=== PATIENT | male | born 1990 | race African-American/Black ===

== ENCOUNTER 2023-03-10 | Outpatient (REF) | payer OTHER, SELFPAY | END 2023-03-10 00:01 | disposition home or self-care (01) | LOC: CF | PROVIDERS: Visit Provider Nurse Practitioner Family | DX: J45.909 Unspecified asthma, uncomplicated (principal); Z91.09 Other allergy status, other than to drugs and biological substances | CPT/HCPCS: 99212 ==

== ENCOUNTER 2023-03-10 09:47 | Outpatient (AMB) | payer OTHER, SELFPAY ==
--- NOTE | 2023-03-10 09:51 | A.OFFVIS_ITS ---
Intake Vital Signs 3 03/10/23 09:52 Height 5 ft 9 in Weight 274 lb BMI 40.5 BP 124/68 Blood Pressure Location Rt brachial Position Sitting Pulse 96 Pulse Source Pulse Oximeter Pulse Oximetry (%) 98 Oxygen Delivery Method Room Air Intake Visit Reasons: Asthma Peanut Vendor Required: No Human Resources Team Member: Human Resources Team Member offered & declined Accompanied by: Self / Same As Patient Allergies Seasonal Allergies Allergy (Intermediate, Verified 03/10/23 10:01) Cough Medication List - Last Reconciled 03/10/23 by Mary Hernandez LPN albuterol sulfate 90 mcg/actuation 2 puffs inhalation Q4-6H PRN emtricitabine-tenofovir (TDF) 200-300 mg 1 tab PO DAILY epinephrine 0.3 mg IM Q4H PRN fluticasone propionate 220 mcg/actuation (Flovent HFA) 1 puff inhalation BID fluticasone propionate 50 mcg/actuation 2 sprays intranasal DAILY ketoconazole 2% 1 appl topical .QOD PRN lamotrigine (Lamictal) 100 mg PO DAILY quetiapine 50 mg PO BEDTIME quetiapine 50 mg PO BEDTIME HPI Asthma 2 HPI0 Details Bon is a very pleasant 32 year old male, never tobacco smoker, with underlying asthma since childhood. He was referred by PCP for pulmonary evaluation. He reports intermittent dry cough, wheezing, chest tightness and difficulty taking a deep breath. He last had these symptoms approximately 3 weeks ago despite using Flovent and duoneb. He states his asthma is typically triggered by allergies and exercise. He is using xyzal and has been receiving allergen immunotherapy for the past 2-[address] Valderrama's office. He reports seasonal allergies to pollens, molds, cats and dust. He does have two cats at home. 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 His mother, smoker, with COPD, otherwise no pertinent family history. REPLACED BY [facility] Social History (Updated 03/10/23 @ 10:03 by Mary Hernandez LPN) Patient Tobacco Use Status: Never used Tobacco Review of Systems Const Denies chills, Denies excessive sweating, Denies fever(s), Denies headache(s) and Denies night sweats Eyes Denies dry eyes, Denies irritation and Denies itchy eyes ENT Reports Normal hearing present, Denies headache(s), Reports nasal congestion, Denies nasal discharge, Reports post nasal drip and Denies sore throat Card Denies chest pain, Denies chest pain at rest, Denies chest pain with activity, Denies claudication, Denies leg edema, Denies orthopnea and Denies paroxysmal nocturnal dyspnea Resp Denies chest congestion, Denies excessive phlegm production, Denies pain on inspiration, Denies pain with cough and Denies stridor Musc Denies myalgias Neuro Reports Normal hearing present and Denies headache(s) Endo Denies excessive sweating Jeanmarie/Lymph Denies lymphadenopathy Aller/Immun Denies itchy eyes and Denies seasonal rhinorrhea Physical Exam Vital Signs: Last Vital Signs Pulse 96 03/10/23 09:52 BP 124/68 03/10/23 09:52 Pulse Ox 98 03/10/23 09:52 Oxygen Delivery Method Room Air 03/10/23 09:52 BMI result Body Mass Index 40.5 Const General: cooperative, healthy appearing, comfortable, no acute distress, well developed and alert Nutritional Appearance: obese Orientation/consciousness: patient oriented x3 Limitations: no limitations HEENT Head: Yes normal to inspection, Yes normocephalic and Yes atraumatic Ears: hearing grossly normal bilaterally and external ears normal Eyes General: appearance normal, both eyes and all related structures Eyelids: Yes eyelids normal Sclerae: sclerae normal EOM: EOMs intact bilaterally Neck Neck: Yes normal visual inspection and Yes no lymphadenopathy Lymphatic: no lymphadenopathy noted Chest Chest palpation & inspection: normal inspection of the chest Resp Effort & Inspection: normal respiratory effort, able to speak in complete sentences, no audible wheezes, no cough, no stridor, not tachypneic, no tripod positioning and no use of accessory muscles Auscultation: clear to auscultation bilaterally Cardio Jugular venous distension: no JVD Rate: regular rate Rhythm: regular rhythm Skin Other: warm, dry General skin exam: no rashes or lesions noted Neuro General: patient oriented x3 Cranial nerves: Yes Normal hearing present Cognition (Neuro): normal cognition Gait exam (Neuro): Normal gait present Extrem General: Yes normal to inspection, Yes no clubbing, cyanosis or edema and Yes no pedal edema Psych Appearance: grossly normal and well kempt Speech and movement: Normal speech and movement present and Clear speech present Affect: normal affect Attitude: cooperative Thought process: Normal thought process present Thought content: Normal thought content present Insight: Good insight present (Psych) Judgement: Good judgement present (Psych) Results Reviewed Results Reviewed: Assessment & Plan Assessment & Plan (1) Asthma: Code(s): J45.909 - Unspecified asthma, uncomplicated (2) Environmental allergies: Code(s): Z91.09 - Other allergy status, other than to drugs and biological substances Plan Bon's symptoms are likely related to underlying asthma and perennial allergies. Discussed triggers and modifications, including air purifier, dehumidifier and dust mite covers for pillows/mattress. Reviewed PFT from 2020 which was unremarkable. Full report above. Discussed methacholine challenge but patient would like to hold off at this time. Will trial Breo in place of Flovent. Patient is aware to call the office if there are insurance coverage issues. All questions were answered and aptient is in agreement of plan. Will follow up in three months to assess response to Breo. Medications: New 2 fluticasone furoate-vilanterol 200-25 mcg/dose (Breo Ellipta) 1 inh inhalation DAILY 60 ea 3RF albuterol sulfate 90 mcg/actuation 2 puffs inhalation Q4-6H PRN 1 ea 3RF shortness of breath or wheezing Coding Level of Care Code New Pt Level 4 (50338) Diagnoses Asthma J45.909 Environmental allergies Z91.09
[2023-03-10 09:52] VITALS: BP 124/68; PULSE 96; O2SAT 98; BMI 40.5
== END 2023-03-10 10:28 | disposition home or self-care (01) ==
LOC: HO.HPSW 09:47
PROVIDERS: PCP Family Medicine; Referring Provider Family Medicine; Visit Provider Nurse Practitioner Family
DX: J45.909 Unspecified asthma, uncomplicated (principal); Z91.09 Other allergy status, other than to drugs and biological substances
CPT/HCPCS: 99204

== ENCOUNTER 2023-06-02 13:45 | Outpatient (AMB) | payer OTHER, SELFPAY ==
--- NOTE | 2023-06-02 13:45 | A.OFFVIS_ITS ---
Intake Vital Signs 06/02/23 13:47 Height 5 ft 9 in Weight 266 lb BMI 39.3 BP 136/72 Blood Pressure Location Rt brachial Position Sitting Pulse 97 Pulse Source Pulse Oximeter Pulse Oximetry (%) 97 Oxygen Delivery Method Room Air Intake Visit Reasons: 3 month follow up Allergies Seasonal Allergies Allergy (Intermediate, Verified 06/02/23 13:51) Cough Medication List - Last Reconciled 06/02/23 by Mary Hernandez LPN albuterol sulfate 90 mcg/actuation 2 puffs inhalation Q4-6H PRN emtricitabine-tenofovir (TDF) 200-300 mg 1 tab PO DAILY epinephrine 0.3 mg IM Q4H PRN fluticasone furoate-vilanterol 200-25 mcg/dose (Breo Ellipta) 1 inh inhalation DAILY fluticasone propionate 50 mcg/actuation 2 sprays intranasal DAILY ketoconazole 2% 1 appl topical .QOD PRN lamotrigine (Lamictal) 100 mg PO DAILY quetiapine 50 mg PO BEDTIME PFSH Social History (Updated 06/02/23 @ 13:53 by Mary Hernandez LPN) Patient Tobacco Use Status: Never used Tobacco Smoked in Last 30 Days: No Physical Exam Vital Signs: Last Vital Signs Pulse 97 06/02/23 13:47 BP 136/72 06/02/23 13:47 Pulse Ox 97 06/02/23 13:47 Oxygen Delivery Method Room Air 06/02/23 13:47 BMI result Body Mass Index 39.3 Assessment & Plan Assessment & Plan Orders: Orders XR chest 2V Today R07.81 - Pleurodynia Coding
[2023-06-02 13:47] VITALS: BP 136/72; PULSE 97; O2SAT 97; BMI 39.3
--- NOTE | 2023-06-02 13:47 | A.OFFVIS_ITS ---
Intake Vital Signs 06/02/23 13:47 Height 5 ft 9 in Weight 266 lb BMI 39.3 BP 136/72 Blood Pressure Location Rt brachial Position Sitting Pulse 97 Pulse Source Pulse Oximeter Pulse Oximetry (%) 97 Oxygen Delivery Method Room Air Intake Visit Reasons: 3 month follow up Product Mgr Required: No Foundation Relations Manager: Foundation Relations Manager offered & declined Accompanied by: Self / Same As Patient Allergies Seasonal Allergies Allergy (Intermediate, Verified 06/02/23 13:51) Cough Medication List - Last Reconciled 06/02/23 by Mary Hernandez LPN albuterol sulfate 90 mcg/actuation 2 puffs inhalation Q4-6H PRN emtricitabine-tenofovir (TDF) 200-300 mg 1 tab PO DAILY epinephrine 0.3 mg IM Q4H PRN fluticasone furoate-vilanterol 200-25 mcg/dose (Breo Ellipta) 1 inh inhalation DAILY fluticasone propionate 50 mcg/actuation 2 sprays intranasal DAILY ketoconazole 2% 1 appl topical .QOD PRN lamotrigine (Lamictal) 100 mg PO DAILY quetiapine 50 mg PO BEDTIME HPI 3 month follow up HPI Details Bon is a very pleasant 33 year old male, never tobacco smoker, with underlying asthma since childhood. At the last visit Flovent was switched to Breo. He reports significant improvements in cough and dyspnea. However, he continues to report inability to inspire fully when exercising with associated pleuritic discomfort. He does report these symptoms were present when he was 180lbs and continues with his current weight. He denies any recent imaging. [facility] Social History (Updated 06/02/23 @ 13:53 by Mary Hernandez LPN) Patient Tobacco Use Status: Never used Tobacco Smoked in Last 30 Days: No Review of Systems Const Denies chills, Denies excessive sweating, Denies fever(s), Denies headache(s) and Denies night sweats Eyes Denies dry eyes, Denies irritation and Denies itchy eyes ENT Reports Normal hearing present, Denies headache(s), Reports nasal congestion, Denies nasal discharge and Denies sore throat Card Denies chest pain, Denies chest pain at rest, Denies chest pain with activity, Denies claudication, Denies leg edema, Denies orthopnea and Denies paroxysmal nocturnal dyspnea Resp Denies chest congestion, Denies excessive phlegm production, Denies pain with cough and Denies stridor Musc Denies myalgias Neuro Reports Normal hearing present and Denies headache(s) Endo Denies excessive sweating Jeanmarie/Lymph Denies lymphadenopathy Aller/Immun Denies itchy eyes and Denies seasonal rhinorrhea Physical Exam Vital Signs: Last Vital Signs Pulse 97 06/02/23 13:47 BP 136/72 06/02/23 13:47 Pulse Ox 97 06/02/23 13:47 Oxygen Delivery Method Room Air 06/02/23 13:47 BMI result Body Mass Index 39.3 Const General: cooperative, healthy appearing, comfortable, no acute distress, well developed and alert Nutritional Appearance: obese Orientation/consciousness: patient oriented x3 Limitations: no limitations HEENT Head: Yes normal to inspection, Yes normocephalic and Yes atraumatic Ears: hearing grossly normal bilaterally and external ears normal Eyes General: appearance normal, both eyes and all related structures Eyelids: Yes eyelids normal Sclerae: sclerae normal EOM: EOMs intact bilaterally Neck Neck: Yes normal visual inspection and Yes no lymphadenopathy Lymphatic: no lymphadenopathy noted Chest Chest palpation & inspection: normal inspection of the chest Resp Effort & Inspection: normal respiratory effort, able to speak in complete sentences, no audible wheezes, no cough, no stridor, not tachypneic, no tripod positioning and no use of accessory muscles Auscultation: clear to auscultation bilaterally Cardio Jugular venous distension: no JVD Rate: regular rate Rhythm: regular rhythm Skin Other: warm, dry General skin exam: no rashes or lesions noted Neuro General: patient oriented x3 Cranial nerves: Yes Normal hearing present Cognition (Neuro): normal cognition Gait exam (Neuro): Normal gait present Extrem General: Yes normal to inspection, Yes no clubbing, cyanosis or edema and Yes no pedal edema Psych Appearance: grossly normal and well kempt Speech and movement: Normal speech and movement present and Clear speech present Affect: normal affect Attitude: cooperative Thought process: Normal thought process present Thought content: Normal thought content present Insight: Good insight present (Psych) Judgement: Good judgement present (Psych) Assessment & Plan Assessment & Plan (1) Asthma: Code(s): J45.909 - Unspecified asthma, uncomplicated (2) Environmental allergies: Code(s): Z91.09 - Other allergy status, other than to drugs and biological substances (3) Pleuritic pain: Code(s): R07.81 - Pleurodynia Plan Bon reports improvements on Breo with cough and dyspnea, however continues to report pleuritic discomfort when exercising. Discussed using albuterol prior to exercise and will send for CXR to assess for other etiologies contributing to pleuritic discomfort. Will send for CXR. All questions were answered and patient is in agreement of plan. Will call patient to discuss CXR results and follow up in 6 months or sooner if needed. Orders: Orders XR chest 2V Today R07.81 - Pleurodynia Coding Level of Care Code Est Pt Level 3 (92278) Diagnoses Asthma J45.909 Environmental allergies Z91.09 Pleuritic pain R07.81
== END 2023-06-02 14:10 | disposition home or self-care (01) ==
PROVIDERS: PCP Family Medicine; Visit Provider Nurse Practitioner Family
DX: J45.909 Unspecified asthma, uncomplicated (principal); Z91.09 Other allergy status, other than to drugs and biological substances; R07.81 Pleurodynia
CPT/HCPCS: 99213

== ENCOUNTER → 2023-06-02 13:45 | Outpatient (BNVA) | payer OTHER, SELFPAY | PROVIDERS: PCP Family Medicine; Visit Provider Nurse Practitioner Family ==

== ENCOUNTER → 2023-09-22 14:49 | Outpatient (AMB) | payer OTHER, SELFPAY ==
--- NOTE | 2023-09-22 14:34 | A.OFFVIS_ITS ---
Intake Intake Visit Reasons: Asthma Allergies Seasonal Allergies Allergy (Intermediate, Verified 06/02/23 13:51) Cough HPI Asthma HPI Details Bon is a very pleasant 33 year old male, never tobacco smoker, with underlying asthma since childhood. Today's visit was conducted via telephone. At baseline he has been using Breo with moderate effect. He continues to report inability to inspire fully when exercising and develops associated pleuritic discomfort. He denies cough or wheezing. He uses albuterol prior to exercise however discomfort is still present with exertion. We previously discussed trialing prednisone to see if this diminishes chest discomfort and he noted a 60% improvement after a 5 day course. He also reports seasonal allergies as well as cat allergy, with two cats at home. [facility] Social History (Updated 06/02/23 @ 13:53 by Mary Hernandez LPN) Patient Tobacco Use Status: Never used Tobacco Review of Systems Const All systems reviewed & are unremarkable except as noted in HPI and below Physical Exam Const General: cooperative and no acute distress Orientation/consciousness: patient oriented x3 Resp Effort & Inspection: normal respiratory effort, able to speak in complete sentences and no audible wheezes Neuro General: patient oriented x3 Psych Mental Status: mental status grossly normal Speech and movement: Clear speech present Attitude: cooperative Thought process: Normal thought process present Thought content: Normal thought content present Insight: Good insight present (Psych) Judgement: Good judgement present (Psych) Assessment & Plan Assessment & Plan (1) Asthma: Code(s): J45.909 - Unspecified asthma, uncomplicated (2) Environmental allergies: Code(s): Z91.09 - Other allergy status, other than to drugs and biological substances (3) Pleuritic pain: Code(s): R07.81 - Pleurodynia Plan Advised to continue Breo and will add singulair. If no significant improvement, will consider Trelegy. Bon continues to report pleuritic discomfort when exercising with minimal relief using albuterol. He did note moderate improvement in symptoms with prednisone use. CXR unremarkable. Will send for chest CT to assess for parenchymal lung conditions contributing to pleuritic discomfort. He has been previously worked up for cardiac contribution which was reportedly unremarkable. All questions were answered and patient is in agreement of plan. Will call to review results or sooner if needed. Orders: Orders CT chest wo IV con Today R07.81 - Pleurodynia Medications: New montelukast (Singulair) 10 mg PO BEDTIME 30 tabs 6RF Coding Level of Care Code Tele Est Pt Level 3 (35246) Diagnoses Asthma J45.909 Environmental allergies Z91.09 Pleuritic pain R07.81 Time Spent (min) 12
== END ==
PROVIDERS: PCP Family Medicine; Visit Provider Nurse Practitioner Family
DX: J45.909 Unspecified asthma, uncomplicated (principal); Z91.09 Other allergy status, other than to drugs and biological substances; R07.81 Pleurodynia
CPT/HCPCS: 99213

== ENCOUNTER → 2023-09-22 14:49 | Outpatient (BNVA) | payer OTHER, SELFPAY | PROVIDERS: PCP Family Medicine; Visit Provider Nurse Practitioner Family ==

== ENCOUNTER 2023-12-15 13:26 | Outpatient (AMB) | payer OTHER, SELFPAY ==
--- NOTE | 2023-12-15 13:26 | MHC.OFFVIS ---
Vital Signs 12/15/23 13:33 Height 5 ft 9 in Weight 288 lb BMI 42.5 BP 154/92 H Blood Pressure Location Lt brachial Position Sitting Pulse 94 Pulse Source Pulse Oximeter Pulse Oximetry (%) 100 Oxygen Delivery Method Room Air Intake Visit Reasons: Thoracic back pain Intake Note: Pain today 8/10 Red Mud Thickener Operator Required: No Accompanied by: Self / Same As Patient Allergies Seasonal Allergies Allergy (Intermediate, Verified 12/15/23 13:36) Cough amoxicillin Allergy (Unknown, Verified 12/15/23 13:36) Rash HPI Comments Details: Bon is a very pleasant 33-year-old male who presents to the office today for evaluation and management of his chronic neck pain. Patient has been suffering with this pain for a long time, has progressively gotten worse over the last 3 months Rated today as 8/10, constant throughout the day and night He has been taking Tylenol and Motrin with minimal improvement. Also tried methocarbamol and tizanidine which he currently takes. This provides some improvement. Has tried topical patches but states has difficulty with the adhesive and often the patches roll up or fall off Currently has been going to physical therapy for a couple of weeks, has noticed some improvement Gets massages once monthly that provides some relief Has been using a TENS unit, states this is what provides him with the most relief of his pain Denies previous attempts at chiropractor, acupuncture or injections In terms of muscle damage condition is described as aching, dull, stabbing, sharp, throbbing Pain is negatively impacting patient's enjoyment of life, general activity, mood, normal work, recreational activities, relationships with people, sleep, walking, ?everything? [facility] Social History (Updated 06/02/23 @ 13:53 by Mary Hernandez LPN) Patient Tobacco Use Status: Never used Tobacco Review of Systems Const All systems reviewed & are unremarkable except as noted in HPI and below Physical Exam Vital Signs: Last Vital Signs Pulse 94 12/15/23 13:33 BP 154/92 H 12/15/23 13:33 Pulse Ox 100 12/15/23 13:33 Oxygen Delivery Method Room Air 12/15/23 13:33 BMI result Body Mass Index 42.5 General: awake, alert, oriented. Answers questions appropriately. Fully engaged in examination. Skin: warm, dry, intact HEENT: Normocephalic. Hearing intact. Cardiac: External chest normal in appearance. Respiratory: No cough, audible wheezing or stridor. Abdomen: without gross distension. MS: No obvious swelling or deformities. Able to transition from sit to stand unassisted. Ambulates with bilaterally normal heel strike and toe off Tenderness to palpation midline thoracic vertebrae and thoracic paraspinal muscles Neurological: Oriented to person, place, time and situation. Thought process intact. No gait abnormalities appreciated. Psychiatric: Appropriate mood and affect. Good judgment and insight. Results Reviewed Results Reviewed: 11/16/23: X-ray cervical spine: Normal X-ray thoracic spine: No acute abnormality X-ray lumbar spine: Normal Assessment & Plan Assessment & Plan (1) Thoracic back pain: Code(s): M54.6 - Pain in thoracic spine Category: Medical Plan Bon is a very pleasant 33-year-old male who presented to the office today for evaluation management of his chronic thoracic back pain He has exhausted conservative therapy including greater than 6 months of nonsteroidal anti-inflammatory medications, topical medications, muscle relaxers, physical therapy, TENS unit and massage Trial Celebrex 100 mg p.o. twice daily. Take with food do not take with any other nonsteroidal anti-inflammatory medications. Continue with muscle relaxers as prescribed Will schedule patient for fluoroscopy guided T7, possibly T6, possibly T8 sprint PNS with local anesthetic All questions and concerns were answered, patient agrees with the plan. Follow up after sprint device placement, sooner if needed Medications: New celecoxib (Celebrex) Do not take with any other nonsteroidal anti-inflammatory medications 100 mg PO BID 60 caps 1RF Coding Level of Care Code New Pt Level 4 (87041) Diagnoses Thoracic back pain M54.6
[2023-12-15 13:33] VITALS: BP 154/92; PULSE 94; O2SAT 100; BMI 42.5
== END 2023-12-15 14:24 | disposition home or self-care (01) ==
PROVIDERS: PCP Family Medicine; Visit Provider Registered Nurse Emergency
DX: M54.6 Pain in thoracic spine (principal)
CPT/HCPCS: 99204

== ENCOUNTER → 2023-12-15 13:26 | Outpatient (BNVA) | payer OTHER, SELFPAY | PROVIDERS: PCP Family Medicine; Visit Provider Registered Nurse Emergency ==

== ENCOUNTER 2024-01-04 15:03 | Outpatient (AMB) | payer OTHER, SELFPAY ==
--- NOTE | 2024-01-04 15:05 | A.OFFVIS_ITS ---
Vital Signs 01/04/24 15:06 Height 5 ft 9 in Weight 269 lb BMI 39.7 BP 161/94 H Blood Pressure Location Rt brachial Position Sitting Pulse 104 H Pulse Source Pulse Oximeter Pulse Oximetry (%) 96 Oxygen Delivery Method Room Air Intake Visit Reasons: Trigger point injections Allergies Seasonal Allergies Allergy (Intermediate, Verified 01/04/24 15:07) Cough amoxicillin Allergy (Unknown, Verified 01/04/24 15:07) Rash Medication List - Last Reconciled 01/04/24 by Maty Saba albuterol sulfate 90 mcg/actuation 2 puffs inhalation Q4-6H PRN 90 days celecoxib (Celebrex) 100 mg PO BID cream base no.105 (bulk) (Base W301 cream) SIG: apply pea-sized amount 3-5 times daily to painful areas as needed ; Diclofenac 5%, Baclofen 5%, Cyclobenzaprine 2%, Gabapentin 6%, Bupivacaine 2%; emtricitabine-tenofovir (TDF) 200-300 mg 1 tab PO DAILY epinephrine 0.3 mg IM Q4H PRN fluticasone furoate-vilanterol 200-25 mcg/dose (Breo Ellipta) 1 inh inhalation DAILY 90 days fluticasone propionate 50 mcg/actuation 2 sprays intranasal DAILY ketoconazole 2% 1 appl topical .QOD PRN lamotrigine (Lamictal) 100 mg PO DAILY methocarbamol 500 mg PO BEDTIME montelukast (Singulair) 10 mg PO BEDTIME prednisone 40 mg (2 x 20 mg) PO DAILY quetiapine 50 mg PO BEDTIME tizanidine 4 mg PO TID PRN HPI Comments Details: Bon presents back to the office today for follow-up Sprint PNS ordered at last visit which insurance denied for multiple reasons, one of which was his BMI greater than 40. He was started on medication for weight loss and has been working diligently to bring down his BMI. continues with thoracic back pain, has been attending PT with some improvment. Pain is less constant now and worse with sloughing, twisting and working. some benefit of muscle relaxers but make him tired. continues with celebrex as prescribed Prior: Bon is a very pleasant 33-year-old male who presents to the office today for evaluation and management of his chronic neck pain. Patient has been suffering with this pain for a long time, has progressively gotten worse over the last 3 months Rated today as 8/10, constant throughout the day and night He has been taking Tylenol and Motrin with minimal improvement. Also tried methocarbamol and tizanidine which he currently takes. This provides some improvement. Has tried topical patches but states has difficulty with the adhesive and often the patches roll up or fall off Currently has been going to physical therapy for a couple of weeks, has noticed some improvement Gets massages once monthly that provides some relief Has been using a TENS unit, states this is what provides him with the most relief of his pain Denies previous attempts at chiropractor, acupuncture or injections In terms of muscle damage condition is described as aching, dull, stabbing, sharp, throbbing Pain is negatively impacting patient's enjoyment of life, general activity, mood, normal work, recreational activities, relationships with people, sleep, walking, ?everything? [facility] Social History (Updated 06/02/23 @ 13:53 by Mary Hernandez LPN) Patient Tobacco Use Status: Never used Tobacco Review of Systems Const All systems reviewed & are unremarkable except as noted in HPI and below Physical Exam Vital Signs: Last Vital Signs Pulse 104 H 01/04/24 15:06 BP 161/94 H 01/04/24 15:06 Pulse Ox 96 01/04/24 15:06 Oxygen Delivery Method Room Air 01/04/24 15:06 BMI result Body Mass Index 41.6 General: awake, alert, oriented. Answers questions appropriately. Fully engaged in examination. Skin: warm, dry, intact HEENT: Normocephalic. Hearing intact. Cardiac: External chest normal in appearance. Respiratory: No cough, audible wheezing or stridor. Abdomen: without gross distension. MS: No obvious swelling or deformities. Able to transition from sit to stand unassisted. Ambulates with bilaterally normal heel strike and toe off Tenderness to palpation midline thoracic vertebrae and thoracic paraspinal muscles Neurological: Oriented to person, place, time and situation. Thought process intact. No gait abnormalities appreciated. Psychiatric: Appropriate mood and affect. Good judgment and insight. Results Reviewed Results Reviewed: 11/16/23: X-ray cervical spine: Normal X-ray thoracic spine: No acute abnormality X-ray lumbar spine: Normal Assessment & Plan Assessment & Plan (1) Thoracic back pain: Code(s): M54.6 - Pain in thoracic spine Category: Medical Plan Bon is a very pleasant 33-year-old male who presented to the office today for evaluation management of his chronic thoracic back pain He has exhausted conservative therapy including greater than 6 months of nonsteroidal anti-inflammatory medications, topical medications, muscle relaxers, physical therapy, TENS unit and massage C/W Celebrex 100 mg p.o. twice daily. Take with food do not take with any other nonsteroidal anti-inflammatory medications. New Rx: Baclofen 5 mg PO TID. Discontinue tizanidine and methocarbamol prior to starting this medication. Do not take with alcohol or other CALIBRATION TESTER depressants including previously prescribed muscle relaxers. Topical compound cream sent to pharmacy, patient advised on use. Will schedule patient for fluoroscopy guided bilateral T6, T7, T8 MBBs with local anesthetic All questions and concerns were answered, patient agrees with the plan. Follow up after sprint device placement, sooner if needed Medications: New baclofen Discontinue use of methocarbamol and tizanidine prior to starting this medication. 5 mg PO TID 90 tabs 1RF Changed 2 From Base W301 (cream base no.105 (bulk)) SIG: apply pea-sized amount 3-5 times daily to painful areas as needed ; Diclofenac 5%, Baclofen 5%, Cyclobenzaprine 2%, Gabapentin 6%, Bupivacaine 2%; 1 g 3RF NS To cream base no.105 (bulk) (Base W301 cream) SIG: apply pea-sized amount 3-5 times daily to painful areas as needed ; Diclofenac 5%, Baclofen 5%, Cyclobenzaprine 2%, Gabapentin 6%, Bupivacaine 2%; 240 grams 3RF Coding Level of Care Code Est Pt Level 3 (56845) Diagnoses Thoracic back pain M54.6
[2024-01-04 15:06] VITALS: BP 161/94; PULSE 104; O2SAT 96; BMI 39.7
== END 2024-01-04 16:19 | disposition home or self-care (01) ==
LOC: HO.PMC 15:03
PROVIDERS: PCP Family Medicine; Visit Provider Registered Nurse Emergency
DX: M54.6 Pain in thoracic spine (principal)
CPT/HCPCS: 99213

== ENCOUNTER → 2024-01-04 15:03 | Outpatient (BNVA) | payer OTHER, SELFPAY | PROVIDERS: PCP Family Medicine; Visit Provider Registered Nurse Emergency ==

== ENCOUNTER 2024-03-21 09:01 | Outpatient (REF) | payer OTHER, SELFPAY | END 2024-03-21 09:02 | disposition home or self-care (01) | LOC: CF 09:01 | PROVIDERS: Visit Provider Internal Medicine | DX: M47.814 Spondylosis without myelopathy or radiculopathy, thoracic region (principal); M54.6 Pain in thoracic spine | CPT/HCPCS: 64490; 64491; 64492; J2003; J2795; Q9967 ==

== ENCOUNTER 2024-03-21 13:00 | Outpatient (AMB) | payer OTHER, SELFPAY ==
[2024-03-21 13:06] VITALS: BP 148/89; PULSE 93; RESP 18; O2SAT 98
--- NOTE | 2024-03-21 13:58 | A.OFFVIS_ITS ---
Vital Signs 03/21/24 13:06 03/21/24 14:00 BP 148/89 H 140/85 H Blood Pressure Location Lt brachial Lt brachial Position Sitting Sitting Respiration 18 19 Pulse 93 90 Pulse Source Pulse Oximeter Pulse Oximeter Pulse Oximetry (%) 98 99 Oxygen Delivery Method Room Air Room Air Comment Pre-op Post-op Intake Visit Reasons: BILATERAL DIAGNOSTIC T6, T7, T8 MBB Allergies Seasonal Allergies Allergy (Intermediate, Verified 01/04/24 15:07) Cough amoxicillin Allergy (Unknown, Verified 01/04/24 15:07) Rash HPI HPI BILATERAL DIAGNOSTIC T6, T7, T8 MBB: Details: Patient presents for scheduled procedure. Denies any recent cough, cold, infection, fever or other significant changes in medical history since last office visit. [facility] Social History (Updated 06/02/23 @ 13:53 by Mary Hernandez LPN) Patient Tobacco Use Status: Never used Tobacco Office Procedures Cervical/Thoracic Facet Inj Details: Thoracic Medial Branch Block, Bilateral, T5, T6, T7 medial branches After obtaining written consent, pre-procedure blood pressure and pulse were recorded and are in the nursing record for review. The patient was placed in a prone position. The respective thoracic area was prepped with chloraprep and draped in sterile fashion. The skin over the target medial branch nerves was anesthetized with 0.5% lidocaine. A 22 gauge 3.5 inch needle was inserted into the target medial branch nerve under fluoroscopic guidance. No paresthesias were elicited with needle placement and aspiration was negative for blood and CSF. Next, 0.2cc of omnipaque 180 was injected to verify positioning. Next 0.5 ml 0.5% ropivicaine was injected (0.5cc total per level). The identical procedure was performed at the remaining levels. The skin was cleansed and a sterile bandage was applied. Following the procedure the patient's vital signs were stable. The patient tolerated the procedure well and no complications were encountered. Following the procedure the patient's vital signs were stable. The patient was discharged home in good condition with post-procedural instructions. Time Out: Immediately prior to the procedure, the following was verbally confirmed that there is a signed consent form and that the correct patient, planned procedure, site and side are consistent with documentation and that necessary equipment and/or blood products are available prior to the start of the case. Complications: none EBL: <5 cc 79644 - with Fluoroscopy (bilateral) 88727 - second level, with Fluoroscopy 69464 - third level, with Fluoroscopy Procedure code (CPT) selection complete Assessment & Plan Assessment & Plan (1) Thoracic spondylosis: Code(s): M47.814 - Spondylosis without myelopathy or radiculopathy, thoracic region Category: Medical Plan Patient is status post bilateral diagnostic thoracic medial branch blocks. Patient tolerated procedure well and was discharged home in stable condition with discharge instructions. All questions were answered. We will follow-up via telephone or in clinic to assess response to therapy. A follow-up appointment was made during today's visit. Coding Level of Care Code Procedure Only Diagnoses Thoracic spondylosis M47.814 CPT Codes Facet Injection Cervical/Thoracic - CPT: 04660 - with Fluoroscopy ([id number]) Facet Injection Cervical/Thoracic - CPT: 15660 - second level, with Fluoroscopy ([id number]) Facet Injection Cervical/Thoracic - CPT: 41400 - third level, with Fluoroscopy ([id number])
[2024-03-21 14:00] VITALS: BP 140/85; PULSE 90; RESP 19; O2SAT 99
== END 2024-03-21 13:59 | disposition home or self-care (01) ==
LOC: HO.PMCPRC 13:00
PROVIDERS: PCP Family Medicine; Visit Provider Internal Medicine
DX: M47.814 Spondylosis without myelopathy or radiculopathy, thoracic region (principal)
CPT/HCPCS: 64490; 64491; 64492

== ENCOUNTER 2024-04-08 12:16 | Outpatient (AMB) | payer OTHER, SELFPAY ==
--- NOTE | 2024-04-08 12:22 | MHC.OFFVIS ---
Vital Signs 04/08/24 12:24 Height 5 ft 9 in Weight 269 lb BMI 39.7 BP 140/88 H Blood Pressure Location Lt brachial Position Sitting Respiration 15 Pulse 68 Pulse Source Pulse Oximeter Pulse Oximetry (%) 98 Oxygen Delivery Method Room Air Intake Visit Reasons: s/p therese Dx MBB Allergies Seasonal Allergies Allergy (Intermediate, Verified 04/08/24 12:26) Cough amoxicillin Allergy (Unknown, Verified 04/08/24 12:26) Rash Medication List - Last Reconciled 04/08/24 by Catherine Ramirez LPN albuterol sulfate 90 mcg/actuation 2 puffs inhalation Q4-6H PRN 90 days baclofen 5 mg PO TID celecoxib (Celebrex) 100 mg PO BID cream base no.105 (bulk) (Base W301 cream) SIG: apply pea-sized amount 3-5 times daily to painful areas as needed ; Diclofenac 5%, Baclofen 5%, Cyclobenzaprine 2%, Gabapentin 6%, Bupivacaine 2%; emtricitabine-tenofovir (TDF) 200-300 mg 1 tab PO DAILY epinephrine 0.3 mg IM Q4H PRN fluticasone furoate-vilanterol 200-25 mcg/dose (Breo Ellipta) 1 inh inhalation DAILY 90 days fluticasone propionate 50 mcg/actuation 2 sprays intranasal DAILY ketoconazole 2% 1 appl topical .QOD PRN lamotrigine (Lamictal) 100 mg PO DAILY montelukast (Singulair) 10 mg PO BEDTIME prednisone 40 mg (2 x 20 mg) PO DAILY quetiapine 50 mg PO BEDTIME HPI HPI s/p therese Dx MBB: Details: 33-year-old male who presents today to the office for status post bilateral diagnostic medial branch block. The patient reports 100% of diagnostic relief following the procedure for two days. He visited [place] last weekend and denies any pain during the stay and traveling. He states that his pain has been returning to baseline this morning. Yesterday his pain was down to 1-3/10 in intensity, which became 7/10 in intensity this morning. He suspects that it might be due to improper sleep position, which aggravated his pain. He sleeps in a prone position but is trying to sleep on his sides. He is doing Yoga at home. He has [employer] insurance. Past procedure 03/21/24: Thoracic Medial Branch Block, Bilateral, T5, T6, T7 medial branches: 100% diagnostic relief for two days. [facility], [facility] Social History (Updated 06/02/23 @ 13:53 by Mary Hernandez LPN) Patient Tobacco Use Status: Never used Tobacco Review of Systems Const All systems reviewed & are unremarkable except as noted in HPI and below Physical Exam Vital Signs: Last Vital Signs Pulse 68 04/08/24 12:24 Resp 15 04/08/24 12:24 BP 140/88 H 04/08/24 12:24 Pulse Ox 98 04/08/24 12:24 Oxygen Delivery Method Room Air 04/08/24 12:24 BMI result Body Mass Index 39.7 General: Appears afebrile. Alert and oriented. Mood and affect appropriate. Follows and participates in conversation appropriately. Respiratory effort is unlabored. Able to transition from sit to stand unassisted. Ambulates with bilaterally normal heel strike and toe off. Results Reviewed Results Reviewed: 01/25/24: MR SPINE THORACIC WO CON. Assessment & Plan Assessment & Plan (1) Thoracic back pain: Code(s): M54.6 - Pain in thoracic spine Category: Medical (2) Thoracic spondylosis: Code(s): M47.814 - Spondylosis without myelopathy or radiculopathy, thoracic region Category: Medical Plan His pain appears to be secondary to thoracic spondylosis. He has been and has been refractory to conservative measures. He has completed 10 rounds of formal physical therapy, but no improvement in his symptoms. He is interested in proceeding with a trial of temporary nerve stimulation. He has already been cleared by his psychologist for interventional pain treatment. We will schedule her for temporary right T4 medial branch nerve stimulator followed by the left side two week later. Discussed the risks and benefits of the procedure with the patient in detail. All questions were answered. The patient is on board with the plan. Justification for interventional therapy: ? Patient with average pain > 6/10. ? Patient has exhausted conservative therapy ? Patient continuing home exercise program . Patient has a good understanding of their pain condition and has appropriate mental and social support Scribed for Dr. Lunsford by Cali Gómez, medical aide, on 04/08/2024. I, Dr. Lunsford, have personally reviewed and agree with the information entered by the scribe. Coding Level of Care Code Est Pt Level 4 (77802) Diagnoses Thoracic back pain M54.6 Thoracic spondylosis M47.814
[2024-04-08 12:24] VITALS: BP 140/88; PULSE 68; RESP 15; O2SAT 98; BMI 39.7
== END 2024-04-08 12:35 | disposition home or self-care (01) ==
LOC: HO.PMC 12:16
PROVIDERS: PCP Family Medicine; Visit Provider Internal Medicine
DX: M54.6 Pain in thoracic spine (principal); M47.814 Spondylosis without myelopathy or radiculopathy, thoracic region
CPT/HCPCS: 99214

== ENCOUNTER → 2024-04-08 12:16 | Outpatient (BNVA) | payer OTHER, SELFPAY | PROVIDERS: PCP Family Medicine; Visit Provider Internal Medicine ==

== ENCOUNTER 2024-07-02 10:58 | Outpatient (AMB) | payer OTHER, SELFPAY ==
--- NOTE | 2024-07-02 11:35 | MHC.OFFVIS ---
Vital Signs 07/02/24 11:36 Height 5 ft 9 in Weight 264 lb BMI 39.0 Pulse 104 H Pulse Oximetry (%) 97 Oxygen Delivery Method Room Air Intake Visit Reasons: Asthma Pot Lining Supervisor Required: No Flat Breakdown Processor: Flat Breakdown Processor offered & declined Accompanied by: Self / Same As Patient Allergies Seasonal Allergies Allergy (Intermediate, Verified 07/02/24 11:40) Cough amoxicillin Allergy (Unknown, Verified 07/02/24 11:40) Rash Medication List - Last Reconciled 07/02/24 by Mary Hernandez LPN albuterol sulfate 90 mcg/actuation 2 puffs inhalation Q4-6H PRN 90 days baclofen 10 mg PO TID celecoxib (Celebrex) 100 mg PO BID cream base no.105 (bulk) (Base W301 cream) SIG: apply pea-sized amount 3-5 times daily to painful areas as needed ; Diclofenac 5%, Baclofen 5%, Cyclobenzaprine 2%, Gabapentin 6%, Bupivacaine 2%; emtricitabine-tenofovir (TDF) 200-300 mg 1 tab PO DAILY epinephrine 0.3 mg IM Q4H PRN fluticasone furoate-vilanterol 200-25 mcg/dose (Breo Ellipta) 1 inh inhalation DAILY 90 days fluticasone propionate 50 mcg/actuation 2 sprays intranasal DAILY ketoconazole 2% 1 appl topical .QOD PRN lamotrigine (Lamictal) 100 mg PO DAILY montelukast (Singulair) 10 mg PO BEDTIME prednisone 40 mg (2 x 20 mg) PO DAILY quetiapine 50 mg PO BEDTIME HPI HPI Asthma: Details: Bon is a very pleasant 34 year old male, never tobacco smoker, with underlying asthma since childhood. At baseline he has been using Breo, Singulair and albuterol MDI with moderate effect. He continues to report inability to inspire fully when exercising and develops associated pleuritic discomfort, prior CT chest unremarkable. Since the last visit he has been evaluated by allergy and has been receiving allergen immunotherapy, as SPT revealed multiple allergens. He has noticed an improvement in post nasal drip since starting in addition to using antihistamines, Azelastine and Flonase. He denies any visits to urgent care or hospitalizations related to respiratory distress since the last visit. [facility] Social History Patient Tobacco Use Status: Never used Tobacco Review of Systems Const Denies chills, Denies excessive sweating, Denies fever(s), Denies headache(s) and Denies night sweats Eyes Denies dry eyes, Denies irritation and Denies itchy eyes ENT Reports Normal hearing present, Denies headache(s), Reports nasal congestion, Denies nasal discharge and Denies sore throat Card Denies chest pain, Denies chest pain at rest, Denies chest pain with activity, Denies claudication, Denies leg edema, Denies orthopnea and Denies paroxysmal nocturnal dyspnea Resp Denies chest congestion, Denies excessive phlegm production, Denies pain with cough and Denies stridor Musc Denies myalgias Neuro Reports Normal hearing present and Denies headache(s) Endo Denies excessive sweating Jeanmarie/Lymph Denies lymphadenopathy Aller/Immun Denies itchy eyes and Denies seasonal rhinorrhea Physical Exam Vital Signs: Last Vital Signs Pulse 104 H 07/02/24 11:36 Pulse Ox 97 07/02/24 11:36 Oxygen Delivery Method Room Air 07/02/24 11:36 BMI result Body Mass Index 39.0 Const General: cooperative, healthy appearing, comfortable, no acute distress, well developed and alert Nutritional Appearance: obese Orientation/consciousness: patient oriented x3 Limitations: no limitations HEENT Head: Yes normal to inspection, Yes normocephalic and Yes atraumatic Ears: hearing grossly normal bilaterally and external ears normal Eyes General: appearance normal, both eyes and all related structures Eyelids: Yes eyelids normal Sclerae: sclerae normal EOM: EOMs intact bilaterally Neck Neck: Yes normal visual inspection and Yes no lymphadenopathy Lymphatic: no lymphadenopathy noted Chest Chest palpation & inspection: normal inspection of the chest Resp Effort & Inspection: normal respiratory effort, able to speak in complete sentences, no audible wheezes, no cough, no stridor, not tachypneic, no tripod positioning and no use of accessory muscles Auscultation: clear to auscultation bilaterally Cardio Jugular venous distension: no JVD Rate: regular rate Rhythm: regular rhythm Skin Other: warm, dry General skin exam: no rashes or lesions noted Neuro General: patient oriented x3 Cranial nerves: Yes Normal hearing present Cognition (Neuro): normal cognition Gait exam (Neuro): Normal gait present Extrem General: Yes normal to inspection, Yes capillary refill normal, Yes no clubbing, cyanosis or edema and Yes no pedal edema Psych Appearance: grossly normal and well kempt Speech and movement: Normal speech and movement present and Clear speech present Affect: normal affect Attitude: cooperative Thought process: Normal thought process present Thought content: Normal thought content present Insight: Good insight present (Psych) Judgement: Good judgement present (Psych) Assessment & Plan Assessment & Plan (1) Asthma: Code(s): J45.909 - Unspecified asthma, uncomplicated Category: Medical (2) Chronic allergic rhinitis: Code(s): J30.9 - Allergic rhinitis, unspecified Category: Medical Plan Bon reports suboptimal effect with current regimen, will send Trelegy in place of Breo. He is aware to call office if there are any issues obtaining. Will send for CBC to assess eosinophil contribution. All questions were answered and patient is in agreement of plan. Will follow up in 6-8 weeks to assess response to Trelelgy or sooner if needed. Orders: Orders Complete Blood Count Auto Diff 07/02/24 Z91.09 - Other allergy status, other than to drugs and biological substances Medications: New ddioghjfdpu-elkdpiuet-adrlijch 200-62.5-25 mcg (Trelegy Ellipta) 1 inh inhalation DAILY 60 ea 3RF Discontinued fluticasone furoate-vilanterol 200-25 mcg/dose (Breo Ellipta) Discontinued Reason: Patient Completed Course 1 inh inhalation DAILY 90 days 3 ea 3RF Coding Level of Care Code Est Pt Level 4 (92345) Diagnoses Asthma J45.909 Chronic allergic rhinitis J30.9
[2024-07-02 11:36] VITALS: PULSE 104; O2SAT 97; BMI 39.0
== END 2024-07-02 12:02 | disposition home or self-care (01) ==
PROVIDERS: PCP Family Medicine; Visit Provider Nurse Practitioner Family
DX: J45.909 Unspecified asthma, uncomplicated (principal); J30.9 Allergic rhinitis, unspecified
CPT/HCPCS: 99214

== ENCOUNTER → 2024-07-02 10:58 | Outpatient (BNVA) | payer OTHER, SELFPAY | PROVIDERS: PCP Family Medicine; Visit Provider Nurse Practitioner Family ==

== ENCOUNTER 2024-07-04 08:31 | Outpatient (REF) | payer OTHER, SELFPAY ==
--- NOTE | ~2024-07-04 | FL_ITS ---
EXAMINATION: FL GUIDANCE ONLY HISTORY: M47.814 - Spondylosis without myelopathy or radiculopathy, thoracic region COMPARISON: None available. TECHNIQUE: Fluoroscopy time: 0.1 minute. Cumulative Dose: 1.94 mGy. DAP: 0.0119 uGy-m2 (microgray-meter squared). Images: 4. FINDINGS: Images demonstrate a probe overlying the right side of a thoracic vertebral body from a posterior approach. FL/FL guidance in treatment room IMPRESSION: Fluoroscopy during procedure. Please see procedure report for additional information. Electronically signed by: Benja Alexander MD 07/05/2024 01:36 PM DOTTY
== END 2024-07-04 08:32 | disposition home or self-care (01) ==
LOC: CF 08:31
PROVIDERS: PCP Family Medicine; Visit Provider Internal Medicine
DX: M47.814 Spondylosis without myelopathy or radiculopathy, thoracic region (principal); M54.6 Pain in thoracic spine
CPT/HCPCS: 64555; C1778; J2003

== ENCOUNTER 2024-07-04 08:31 | Outpatient (AMB) | payer OTHER, SELFPAY ==
[2024-07-04 08:37] VITALS: BP 144/92; PULSE 98; O2SAT 99
--- NOTE | 2024-07-04 08:37 | A.OFFVIS_ITS ---
Vital Signs 07/04/24 08:37 07/04/24 09:43 BP 144/92 H 142/81 H Blood Pressure Location Lt brachial Lt brachial Position Sitting Sitting Pulse 98 92 Pulse Source Pulse Oximeter Pulse Oximeter Pulse Oximetry (%) 99 98 Oxygen Delivery Method Room Air Room Air Intake Visit Reasons: Right T4 Sprint Allergies Seasonal Allergies Allergy (Intermediate, Verified 07/02/24 11:40) Cough amoxicillin Allergy (Unknown, Verified 07/02/24 11:40) Rash PFSH Social History Patient Tobacco Use Status: Never used Tobacco Physical Exam Vital Signs: Last Vital Signs Pulse 98 07/04/24 08:37 BP 144/92 H 07/04/24 08:37 Pulse Ox 99 07/04/24 08:37 Oxygen Delivery Method Room Air 07/04/24 08:37 Office Procedures Details: Thoracic Medial Branch Nerve Stimulation Lead Placement, SPR (Sprint) System, Right T5 ? After the risks, benefits and alternatives were discussed with the patient and informed consent was obtained, patient was placed in the prone position and pa dded to foster comfort. The skin overlying the lumbosacral spine was prepped and draped in sterile fashion. Fluoroscopy was used to identify the spinous process and lamina in the center of the patient?s region of pain. After identifying and marking the intended target along the course of the medial branch nerve, the skin around the planned entry point and the subcutaneous tissues were injected with lidocaine 1%. An introducer needle and stimulating probe were assembled, inserted and advanced along the intended course of the medial branch nerve as it traverses the lamina medial and inferior to the zygapophyseal joint, taking care to maintain the proper depth of insertion as the introducer is advanced under fluoroscopic guidance. The target was chosen based on fluoroscopic correlation of patient's maximal reported pain. The introducer needle was delivered to a location in proximity to the nerve. Multiple stimulation parameters were used to deliver stimulation to the target medial branch nerve in concert with stimulating at multiple positions around the nerve. Nerve target acquisition was confirmed noting generation of paresthesias in the paravertebral regions corresponding to the level being stimulated. Various electrical parameter combinations were tested, and the lead location was adjusted (physically relocated) until the patient indicated paresthesia/muscle tension overlapping the distribution of the patient?s typical region of pain. The stimulating probe was removed from the introducer and a percutaneous lead was guided through the needle and delivered to a location in similar proximity to the nerve. Final location was verified with electrical stimulation and documented with fluoroscopy. The introducer needle was removed, and the exposed end of the percutaneous lead was attached to an external stimulator unit. Various electrical parameter combinations were again tested until the patient indicated paresthesia or muscle tension overlapping the distribution of the patient?s typical region of pain. After confirming that lead impedance was in the normal range, the external unit was detached, the needle was removed, and the lead was anchored at the skin. The lead was threaded into the connector block and electrical continuity and desired patient response was confirmed. The connector block was attached to the external stimulator unit. The site was covered with a sterile occlusive dressing. The patient was observed for stability of vital signs and comfort. Sprint PNS Device: Sprint PNS Device [id number] Percutaneous Peripheral Neuroelectrode Procedure: 75013 - Percutaneous Peripheral Neuroelectrode Procedure code (CPT) selection complete Office Meds lidocaine HCl 10 mg/mL (1 %) injection solution Performing Provider: Edna Taylor APRN, ANDREA Performing Location: [facility] Administered by: Catherine Ramirez LPN on 07/04/24 09:27 Dose Route Admin Location Dispensed Lot Number Expiration Date [facility] Clinical Professor 50 mg subcut 5 mL Assessment & Plan Assessment & Plan (1) Thoracic spondylosis: Code(s): M47.814 - Spondylosis without myelopathy or radiculopathy, thoracic region Category: Medical (2) Thoracic back pain: Code(s): M54.6 - Pain in thoracic spine Category: Medical Plan Patient is status post temporary right T5 medial branch nerve stimulator placement. Patient tolerated procedure well and was discharged home in stable condition with discharge instructions. All questions were answered. We will follow-up via telephone or in clinic to assess response to therapy. A follow-up appointment was made during today's visit. Orders: Orders FL guidance in treatment room Today M47.814 - Spondylosis without myelopathy or radiculopathy, thoracic region AMB Sprint PNS Today M47.814 - Spondylosis without myelopathy or radiculopathy, thoracic region Coding Level of Care Code Procedure Only Diagnoses Thoracic spondylosis M47.814 Thoracic back pain M54.6 CPT Codes Sprint PNS - Sprint PNS Device: Sprint PNS Device ([id number]) Sprint PNS - SPRINT: 21851 - Percutaneous Peripheral Neuroelectrode ([id number]) Implantable Device Implantable Device Implantable Devices Qty Clinical Professor Implant Date Expiration Date Analgesic PENS system 1 [employer] 07/04/24 03/24/25
--- OUTSIDE RECORDS SUMMARY | 2024-07-04 08:49 | XMS_ITS ---
Author Name [facility] Organization Unknown History of Medication Use Medication Directions Dispensed Refills Start Date End Date Stat Semaglutide-Weight Management (Wegovy) 0.25 MG/0.5ML Solution Auto-injector Inject 0.25 mg under the skin once a week. 03/11/2023 active lamoTRIgine (LaMICtal) 100 MG tablet Take 1 tablet (100 mg total) by mouth daily. 02/23/2023 active dulaglutide (TRULICITY) 0.75 MG/0.5ML prefilled pen injection Inject 0.75 mg under the skin once a week. 03/10/2023 aborted Semaglutide-Weight Management (Wegovy) 0.5 MG/0.5ML Solution Auto-injector Inject 0.5 mg under the skin once a week. 02/23/2023 active [place] 3 1000 MG Cap capsule Take 2,150 mg by mouth daily. Administer whole. Do not break. 02/23/2023 active QUEtiapine (SEROquel) 50 MG tablet Take 1 tablet (50 mg total) by mouth nightly. 02/23/2023 active Problems Problem Status Onset Date Problem Type Date of Resolution Source Bipolar two disorder active 2023-02-21 ProblemAct [facility] Osteoarthritis active 2023-02-21 ProblemAct [facility] Encounter for weight management active EncounterDiagnosisAct [facility] Obesity, Class III, BMI 40-49.9 (morbid obesity) active 2023-02-21 ProblemAct [facility] Binge eating disorder active 2023-02-21 ProblemAct [facility] GERD (gastroesophageal reflux disease) active 2023-02-21 ProblemAct [facility] Anxiety active 2023-02-21 ProblemAct [facility]
[2024-07-04 09:43] VITALS: BP 142/81; PULSE 92; O2SAT 98
== END 2024-07-04 09:59 | disposition home or self-care (01) ==
LOC: HO.PMCPRC 08:31
PROVIDERS: PCP Family Medicine; Visit Provider Internal Medicine
DX: M47.814 Spondylosis without myelopathy or radiculopathy, thoracic region (principal)
CPT/HCPCS: 64555

== ENCOUNTER 2024-07-12 11:42 | Outpatient (AMB) | payer OTHER, SELFPAY ==
--- NOTE | 2024-07-12 11:48 | A.OFFVIS_ITS ---
Intake Visit Reasons: s/p right T4 Sprint Allergies Seasonal Allergies Allergy (Intermediate, Verified 07/02/24 11:40) Cough amoxicillin Allergy (Unknown, Verified 07/02/24 11:40) Rash HPI Comments Details: Bon presents back to the office today for follow up, 1 week s/p right T5 Sprint PNS placement He endorses 60% pain relief with improvement in function and mobility. Pain relief was better than 60% but he has started back at the gym which has exacerbated his symptoms Denies any untoward effects off the device Plan for left side placement next week Prior Visit with Dr. Lunsford: s/p therese Dx MBB: Details: 33-year-old male who presents today to the office for status post bilateral diagnostic medial branch block. The patient reports 100% of diagnostic relief following the procedure for two days. He visited [place] last weekend and denies any pain during the stay and traveling. He states that his pain has been returning to baseline this morning. Yesterday his pain was down to 1-3/10 in intensity, which became 7/10 in intensity this morning. He suspects that it might be due to improper sleep position, which aggravated his pain. He sleeps in a prone position but is trying to sleep on his sides. He is doing Yoga at home. He has [employer] insurance. Past procedure 07/04/24: Right T4 Sprint PNS: 60% pain relief after 1 week 03/21/24: Thoracic Medial Branch Block, Bilateral, T5, T6, T7 medial branches: 100% diagnostic relief for two days. [facility] Social History Patient Tobacco Use Status: Never used Tobacco Review of Systems Const All systems reviewed & are unremarkable except as noted in HPI and below Physical Exam General: awake, alert, oriented. Answers questions appropriately. Fully engaged in examination. Skin: warm, dry, intact HEENT: Normocephalic. Hearing intact. Cardiac: External chest normal in appearance. Respiratory: No cough, audible wheezing or stridor. Abdomen: without gross distension. MS: No obvious swelling or deformities. Able to transition from sit to stand unassisted. Ambulates with bilaterally normal heel strike and toe off Neurological: Oriented to person, place, time and situation. Thought process intact. No gait abnormalities appreciated. Psychiatric: Appropriate mood and affect. Good judgment and insight. Sprint dressing change: Existing dressing removed, Area cleansed with chloraprep. Site dry, clean without redness, swelling, warmth, bruising or drainage. Lead secure device removed. Area cleansed again with chloraprep, once dry skin barrier protectant wipe applied. New lead secure device applied, tegaderm applied. Patient tolerated procedure well. Results Reviewed Results Reviewed: 01/25/24: MR SPINE THORACIC WO CON. Assessment & Plan Assessment & Plan (1) Thoracic spondylosis: Code(s): M47.814 - Spondylosis without myelopathy or radiculopathy, thoracic region Category: Medical (2) Thoracic back pain: Code(s): M54.6 - Pain in thoracic spine Category: Medical Plan Patient presents back to the office today for follow up, S/P right T5 medial branch Sprint nerve stimulator placement. Endorses 60% pain relief with improvement in functional mobility. Denies any untoward effects Dressing changed as per above. Patient tolerated well. Continue with plan for left sprint PNS placement in 1 week. All questions and concerns were answered, patient agrees with the plan. Follow- up after procedure, sooner if needed Coding Level of Care Code Est Pt Level 3 (19657) Complex EM visit Add On G2211 Diagnoses Thoracic spondylosis M47.814 Thoracic back pain M54.6
--- OUTSIDE RECORDS SUMMARY | 2024-07-12 13:52 | XMS_ITS ---
Author Organization [facility] Address [address] [place] [address] Care Team Providers Care Solutions Architect Consultant Name Role Phone COURTNEY SIMS Unavailable [phone] REASON FOR VISIT record request Encounters Encounter Location Date Provider Diagnosis [facility] [address] [facility] [address] [place] [address] 01/30/2024 COURTNEY SIMS PLAN OF TREATMENT No Information Progress Notes * Bon BARTONDOB:[birth year] (33 yo M)Acc No.[id number]:01/30/2024 Patient:??Bon BARTON :1990?Age:33 Y?Sex:Meri castro Address:[address] , [place] [address] * true * Date:??
--- OUTSIDE RECORDS SUMMARY | 2024-07-12 13:52 | XMS_ITS | Clinical Summary ---
Author Organization [facility] Address [address] [place] [address] Phone Care Team Providers Care Deburr Technician Name Role Phone Gonzalez Sparks MD Primary Care Provider [phone] Allergies Active Allergy Reactions Criticality Noted Date Comments Amoxicillin 04/28/2023 Encounters Date Type Department Care Team Description 06/20/2024 Telephone Gastroenterology [facility] [address] [facility] 175 [facility] [address] [place] [address] Brian Bland DO cancel special procedure from Last 3 Months Social History Tobacco Use Types Packs/Day Years Used Date Smoking Tobacco: Never Smokeless Tobacco: Never Sex and Gender Information Value Date Recorded Sex Assigned at Not on file Gender Identity Not on file Sexual Orientation Not on file Obstetrics History Last Filed Vital Signs Vital Sign Reading Time Taken Comments Blood Pressure 135/80 01/12/2024 2:38 PM EDT Pulse 99 01/12/2024 2:38 PM EDT Temperature - - Respiratory Rate - - Oxygen Saturation - - Inhaled Oxygen Concentration - - Weight 127 kg (280 lb) 01/12/2024 2:38 PM EDT Height 175.3 cm (5' 9 ) 01/12/2024 2:38 PM EDT Body Mass Index 41.35 01/12/2024 2:38 PM EDT Plan of Treatment Health Maintenance Due Date Last Done Comments DTaP,Tdap,and Td Vaccines (1 - Tdap) 2011 Hepatitis B Vaccines (1 of 3 - 19+ 3-dose series) 2011 Depression Screening 05/17/2022 HIV Screening 05/17/2022 Hepatitis C Screening 05/17/2022 Social Influencers of Health Screening 05/17/2022 COVID-19 Vaccine (1 - 2023-2 5 season) 2024 Influenza Vaccine (#1) 2024 HIB Vaccines Aged Out No longer eligi ble based on patient's age to complete this topic HPV Vaccines Aged Out No longer eligi ble based on patient's age to complete this topic Hepatitis A Vaccines Aged Out No long er eligible based on patient's age to complete this topic IPV Vaccines Aged Out No longer eligi ble based on patient's age to complete this topic MMR Vaccines Aged Out No longer eligi ble based on patient's age to complete this topic Meningococcal ACWY Vaccine Aged Out N o longer eligible based on patient's age to complete this topic Pneumococcal Vaccine: Pediat rics (0 to 5 Years) and At-Risk Patients (6 to 64 Years) Aged Out No longer eligible b ased on patient's age to complete this topic RSV Immunization Patients Un chana 20 months Aged Out No longer eligible b ased on patient's age to complete this topic Varicella Vaccines Aged Out No longer eligible based on patient's age to complete this topic Care Teams Deburr Technician Relationship Specialty Start Date End Date Gonzalez Sparks MD [address] [place], [place] PCP - General 04/19/23
--- OUTSIDE RECORDS SUMMARY | 2024-07-12 13:52 | XMS_ITS | Encounter Summary ---
Author Organization [facility] Address [address] [place] [address] Care Team Providers Care Physics Technician Name Role Phone Gonzalez Sparks MD Primary Care Provider [phone] Reason for Visit * Reason Onset Date Comments cancel special procedure 06/20/2024 Encounter Details Date Type Department Care Team (Late st Contact Info) Description 06/20/2024 Telephone Gastroenterology - [place] [address] [place] [phone] Brian Bland DO [address] [place] [address] cancel special procedure Social History Tobacco Use Types Packs/Day Years Used Date Smoking Tobacco: Never Smokeless Tobacco: Never Sex and Gender Information Value Date Recorded Sex Assigned at Not on file Gender Identity Not on file Sexual Orientation Not on file documented as of this encounter Progress Notes * Divya Christensen MA - 06/20/2024 1:04 PM EST PROCEDURE CANCELED * Ciera Jurado - 06/20/2024 11:52 AM EST Pt has a procedure on 06/28/2024 at 10:00 he needs to cancel this he states he is feeling fine. He will call back if things change documented in this encounter Plan of Treatment Not on file documented as of this encounter Visit Diagnoses Not on filedocumented in this encounter Care Teams Physics Technician Relationship Specialty Start Date End Date Gonzalez Sparks MD [address] [facility] [address] [place], [place] PCP - General 04/19/23 documented as of this encounter
--- OUTSIDE RECORDS SUMMARY | 2024-07-12 13:52 | XMS_ITS | Continuity of Care Document ---
Author Organization [place] [facility], Allergy Address [address] [place] [phone] Assessment Encounter Date Assessment Date Assessment LastModified by Organization Details LastModified Time 07/03/2024 07/03/2024 Visit With: SAL Nugent Use of Antihistamine s: No If yes: Vial Test Yes Change in medications: No If yes ? ? ? Increase in asthma symptoms If yes, inhaler use: Reaction to last injections: No If yes: ? ? ? Allergy Symptoms: Other: ? ? ? Missed: Dose Aware of Vial Test Notes:? ? ? [email or web address] Not available 07/03/2024 13:24:59 Plan of Treatment Reminders Order Date Submit Date Provider Last Modified By Organization Details Last Modified Time Details Appointments [facility]- Allergy f-up 6mon 2024 01:00P M MAGO CAZARES PA-C Not available Not available Not available Lab None recorded . Referral None recorded . Procedures None recorded . Surgeries None recorded . Imaging None recorded . Medication Orders None recorded . Patient TargetsNo targets recorded. Patient InstructionsNo instructions recorded. Reason for Referral None Reported. Problems Name Problem SNOMED Code Status Onset Date Resolution Date Notes Provider Name and Address Organization Details Recorded Time Posterior rhinorrhe a [id number] Active 2017 Postnasal drip; Note: Date Diagnosed: 05/04/2018 11:24 AM (R09.82) Not Available [facility] 03:23:27 Allergic rhinitis [id number] Active 2023 Allergic rhinitis: Due to other allergen; Note: Date Diagnosed: 07/07/2023 3:46 PM (477.8) Note: Date Diagnosed: 07/07/2023 3:46 PM (477.8) Allergic rhinitis: Due to other allergen; Note: Date Diagnosed: 06/29/2023 9:51 AM (477.8) Note: Date Diagnosed: 06/29/2023 9:51 AM (477.8) ; Start Date : 06/29/2023 Allergic rhinitis: Due to other allergen; Note: Date Diagnosed: 06/20/2023 2:18 PM (477.8) Note: Date Diagnosed: 06/20/2023 2:18 PM (477.8) ; Start Date : 06/20/2023 Allergic rhinitis: Due to other allergen; Note: Date Diagnosed: 06/06/2023 1:52 PM (477.8) Note: Date Diagnosed: 06/06/2023 1:52 PM (477.8) ; Start Date : 06/06/2023 Allergic rhinitis: Due to other allergen; Note: Date Diagnosed: 06/02/2023 2:38 PM (477.8) Note: Date Diagnosed: 06/02/2023 2:38 PM (477.8) ; Start Date : 06/02/2023 Allergic rhinitis: Due to other allergen; Note: Date Diagnosed: 05/23/2023 3:16 PM (477.8) Note: Date Diagnosed: 05/23/2023 3:16 PM (477.8) ; Start Date : 05/23/2023 Allergic rhinitis: Due to other allergen; Note: Date Diagnosed: 05/09/2023 5:04 PM (477.8) Note: Date Diagnosed: 05/09/2023 5:04 PM (477.8) ; Start Date : 05/09/2023 Allergic rhinitis: Due to other allergen; Note: Date Diagnosed: 05/04/2023 2:36 PM (477.8) Note: Date Diagnosed: 05/04/2023 2:36 PM (477.8) ; Start Date : 05/04/2023 Allergic rhinitis: Due to other allergen; Note: Date Diagnosed: 04/28/2023 2:56 PM (477.8) Note: Date Diagnosed: 04/28/2023 2:56 PM (477.8) ; Start Date : 04/28/2023 Allergic rhinitis: Due to other allergen; Note: Date Diagnosed: 04/18/2023 1:52 PM (477.8) Note: Date Diagnosed: 04/18/2023 1:52 PM (477.8) ; Start Date : 04/18/2023 Allergic rhinitis: Due to other allergen; Note: Date Diagnosed: 04/12/2023 4:53 PM (477.8) Note: Date Diagnosed: 04/12/2023 4:53 PM (477.8) ; Start Date : 04/12/2023 Allergic rhinitis: Due to other allergen; Note: Date Diagnosed: 04/04/2023 3:09 PM (477.8) Note: Date Diagnosed: 04/04/2023 3:09 PM (477.8) ; Start Date : 04/04/2023 Allergic rhinitis: Due to other allergen; Note: Date Diagnosed: 03/28/2023 1:48 PM (477.8) Note: Date Diagnosed: 03/28/2023 1:48 PM (477.8) ; Start Date : 03/28/2023 Allergic rhinitis: Due to other allergen; Note: Date Diagnosed: 03/24/2023 3:21 PM (477.8) Note: Date Diagnosed: 03/24/2023 3:21 PM (477.8) ; Start Date : 03/24/2023 Allergic rhinitis: Due to other allergen; Note: Date Diagnosed: 03/14/2023 1:10 PM (477.8) Note: Date Diagnosed: 03/14/2023 1:10 PM (477.8) ; Start Date : 03/14/2023 Allergic rhinitis: Due to other allergen; Note: Date Diagnosed: 03/07/2023 2:20 PM (477.8) Note: Date Diagnosed: 03/07/2023 2:20 PM (477.8) ; Start Date : 03/07/2023 Allergic rhinitis: Due to other allergen; Note: Date Diagnosed: 03/01/2023 2:33 PM (477.8) Note: Date Diagnosed: 03/01/2023 2:33 PM (477.8) ; Start Date : 03/01/2023 Allergic rhinitis: Due to other allergen; Note: Date Diagnosed: 02/22/2023 4:44 PM (477.8) Note: Date Diagnosed: 02/22/2023 4:44 PM (477.8) ; Start Date : 02/22/2023 Allergic rhinitis: Due to other allergen; Note: Date Diagnosed: 02/14/2023 3:26 PM (477.8) Note: Date Diagnosed: 02/14/2023 3:26 PM (477.8) ; Start Date : 02/14/2023 Allergic rhinitis: Due to other allergen; Note: Date Diagnosed: 02/07/2023 2:45 PM (477.8) Note: Date Diagnosed: 02/07/2023 2:45 PM (477.8) ; Start Date : 02/07/2023 Allergic rhinitis: Due to other allergen; Note: Date Diagnosed: 01/25/2023 3:08 PM (477.8) Note: Date Diagnosed: 01/25/2023 3:08 PM (477.8) ; Start Date : 01/25/2023 Allergic rhinitis: Due to other allergen; Note: Date Diagnosed: 01/18/2023 4:46 PM (477.8) Note: Date Diagnosed: 01/18/2023 4:46 PM (477.8) ; Start Date : 01/18/2023 Allergic rhinitis: Due to other allergen; Note: Date Diagnosed: 01/18/2023 4:47 PM (477.8) Note: Date Diagnosed: 01/18/2023 4:47 PM (477.8) ; Start Date : 01/18/2023 Allergic rhinitis: Due to other allergen; Note: Date Diagnosed: 01/11/2023 4:22 PM (477.8) Note: Gagan Not Available [facility] 4 01:27:26 Peritonsi llar abscess 60479048 Active 2015 Peritonsil lar abscess; Note: Date Diagnosed: 03/14/2016 4:15 PM (J36) Not Available [facility] 4 03:23:27 Nasal congestio n 08873015 Active 2017 Nasal congestion ; Note: Date Diagnosed: 05/04/2018 11:24 AM (R09.81) Not Available [facility] 4 03:23:27 Seasonal allergic rhinitis 639340492 Active 2018 Other seasonal allergic rhinitis; Note: Date Diagnosed: 07/16/2018 10:13 AM (J30.2) Not Available [facility] 4 03:23:27 Perennial allergic rhinitis 720794887 Active 2023 RACH RONALDO, RMA [address], [place], [address] , [facility] 16:31:36 Problem Notes None recorded. Procedures Surgical History Date Name Laterality Status Provider Name and Address Organization Details Recorded Time 07/03/19 25 Allergy Immunotherapy Injections completed RACH HIGGINS, RMA [address] [facility], [place], [address], [facility] 07/03/2024 13:24:50 06/26/19 25 Allergy Immunotherapy Injections completed SAL GALINDO [address] [facility], [place], [address], [facility] 06/26/2024 17:24:00 06/10/20 24 Allergy Immunotherapy Injections completed RACH HIGGINS RMA [address] [facility], [place], [address], [place] [facility] 06/10/2024 11:59:19 05/30/20 24 Allergy Immunotherapy Injections completed ELLE CHATMAN RN [address] [place] [address], [address], [facility] 05/30/2024 16:26:26 05/14/20 24 Allergy Immunotherapy Injections completed RACH HIGGINS A [address] [place] [address], [phone], [facility] 05/14/2024 15:52:38 05/10/20 24 Allergy Immunotherapy Injections completed LIZZIE ROSSI A [address] [place] [address], [address], [facility] 05/10/2024 13:56:20 05/01/20 24 Allergy Immunotherapy Injections completed ELLE CHATMAN RN [address] [facility] [place],[address] [place] [address], [address], [place] [facility] 05/01/2024 16:20:08 04/17/20 24 Allergy Immunotherapy Injections completed RACH HIGGINS, RMA [address], [place], [address], [place] [facility] 04/17/2024 16:48:38 04/10/20 24 Allergy Immunotherapy Injections completed ELLE CHATMAN RN [address], [place], [address], [place] [facility] 04/10/2024 16:17:42 04/03/20 24 Allergy Immunotherapy Injections completed LIZZIE ROSSI RMA [address], [place], [address], [place] [facility] 04/03/2024 17:19:19 03/27/20 24 Allergy Immunotherapy Injections completed RACH HIGGINS, RMA [address], [place], [address], [place] [facility] 03/27/2024 17:11:33 03/19/20 24 Allergy Immunotherapy Injections completed RACH HIGGINS, RMA [address], [place], [address], [place] [facility] 03/19/2024 16:18:00 03/12/20 24 Allergy Immunotherapy Injections completed LIZZIE ROSSI RMA [address], [place], [address], [place] [facility] 03/12/2024 16:59:58 03/06/20 24 Allergy Immunotherapy Injections completed SAL GALINDO [address], [place], [address], [place] [facility] 03/06/2024 16:53:38 02/21/20 24 Allergy Immunotherapy Injections completed LIZZIE ROSSI RMA [address], [place], [address], [place] [facility] 02/21/2024 17:06:21 02/16/20 24 Allergy Immunotherapy Injections completed LIZZIE ROSSI RMA [address], [place], [address], [place] [facility] 02/16/2024 11:38:32 02/09/20 24 Allergy Immunotherapy Injections completed RACH RONALDO, RMA [address], [place], [address], [place] [facility] 02/09/2024 14:15:11 01/31/20 24 Allergy Immunotherapy Injections completed RACH KORZEC, RMA [address], [place], [address], [place] [facility] 01/31/2024 16:45:20 01/24/20 24 Allergy Immunotherapy Injections completed LIZZIE ROSSI RMA [address], [place], [address], [place] [facility] 01/24/2024 16:54:44 01/09/20 24 Allergy Immunotherapy Injections completed RACH WILDERC, RMA [address], [place], [address], [place] [facility] 01/09/2024 14:20:54 01/05/20 24 Allergy Immunotherapy Injections completed RACH HIGGINS, RMA [address], [place], [address], [place] [facility] 01/05/2024 09:57:45 12/26/19 24 Allergy Immunotherapy Injections completed LIZZIE ROSSI RMA [address], [place], [address], [place] [facility] 12/26/2023 15:50:59 12/19/19 24 Allergy Immunotherapy Injections completed ELLE CHATMAN RN [address], [place], [address], [place] [facility] 12/19/2023 16:43:24 12/05/19 24 Allergy Immunotherapy Injections completed LIZZIE ROSSI RMA [address], [place], [address], [place] [facility] 12/05/2023 16:12:33 11/29/19 24 Allergy Immunotherapy Injections completed RACH WILDERC, RMA [address], [place], [address], [place] [facility] 11/29/2023 17:05:00 11/21/19 24 Allergy Immunotherapy Injections completed RACH WILDERJonathan, [facility] [address] [facility] [place],[address], [address], [facility] 11/21/2023 15:51:07 11/20/19 24 Telehealth completed MAGO CAZARES PA-C [address] [facility],[address], [address], [facility] 11/20/2023 09:23:48 11/16/19 24 Allergy Immunotherapy Injections completed LIZZIE ROSSI [facility] [address] [facility],[place] [address], [place], [address], [facility] 11/16/2023 15:52:45 11/08/19 24 Allergy Immunotherapy Injections completed RACH WILDER, [facility] [address] [facility],[address], [address], [facility] 11/08/2023 16:32:04 Imaging Results None recorded. Procedure Notes None recorded. Medical Equipment None Reported. Allergies Allergen ID Allergen Name Allergen Category Reaction Reaction Severity Criticality Documentation Date Start Date Code Code System Note Provider Name and Address Organization Details Recorded Time [id number] amoxicill in medicatio n other Not available Not available 10/31/2023 723 RxNorm React ion: unkno wn, unspe cifie d;; Not Available [facility] 01:26:29 Medications Name Sig Start Date Stop Date Status Note LastModified by Organization Details LastModified Time methocarb danial 500 mg tablet TAKE 1 TABLET BY MOUTH THREE TIMES A DAY active Not Available Not Available No t Available oxcarbaze pine 150 mg tablet TAKE 1 TABLET BY MOUTH TWICE A DAY active Not Available Not Available No t Available doxycycli ne hyclate 100 mg capsule TAKE 1 CAPSULE BY MOUTH TWICE A DAY FOR 7 DAYS active Not Available Not Available No t Available lamotrigi ne 200 mg tablet TAKE 1 TABLET BY MOUTH TWICE DAILY active Not Available Not Available No t Available ipratropi um 0.5 mg-albute rol 3 mg (2.5 mg base)/3 mL nebulizat ion soln INHALE 1 VIAL IN NEBULIZE R EVERY 4 TO 6 HOURS NEEDED FOR SHORTNES S OF BREATH OR WHEEZING active Not Available Not Available No t Available loperamid e 2 mg capsule PLEASE SEE ATTACHED FOR DETAILED DIRECTIO NS active Not Available Not Available No t Available ibuprofen 800 mg tablet TAKE 1 TABLET BY MOUTH THREE TIMES DAILY WITH FOOD active Not Available Not Available No t Available tretinoin 0.025 % topical cream Apply TO affected AREAS nightly active Not Available Not Available No t Available prednison e 20 mg tablet TAKE 2 TABLETS BY MOUTH EVERY DAY active Not Available Not Available No t Available oxcarbaze pine 300 mg tablet TAKE 1 TABLET BY MOUTH IN THE MORNING AND 2 AT BEDTIME active Not Available Not Available No t Available doxycycli ne monohydra te 100 mg tablet PLEASE SEE ATTACHED FOR DETAILED DIRECTIO NS active Not Available Not Available No t Available ondansetr on 8 mg disintegr ating tablet DISSOLVE 1 TABLET (8 MG) ON TOP OF THE TONGUE AND SWALLOW EVERY 8 HOURS active Not Available Not Available No t Available alprazola m 0.5 mg tablet TAKE 1 TABLET BY MOUTH ONCE DAILY NEEDED FOR ANXIETY active Not Available Not Available No t Available Zoloft 50 mg tablet 07/02 completed Medicati on ID: [id number] R hoa: () Brand Name: Zoloft S end Method: E-Prescr ibed Sub s Allowed: subs [place] [facility] Zoloft Not Available Not Available Not Available cephalexi n 500 mg capsule TAKE 1 CAPSULE BY MOUTH EVERY 12 HOURS FOR 10 DAYS active Not Available Not Available No t Available clotrimaz ole-betam ethasone 1 %-0.05 % topical cream APPLY 1 SMALL AMOUNT TO AFFECTED AREA TWICE A DAY FOR 14 DAYS THEN NEEDED active Not Available Not Available No t Available omeprazol e 20 mg capsule,d elayed release 2017 active Medicati on ID: [id number] D uration Value: 30 Brand Name: omeprazo le Send Method: E-Prescr ibed Sub s Allowed: subs OK Speci al Instruct ion: TK 1 C PO QD Medic ationGen ericName : omeprazo le Not Available Not Available Not Available monteluka st 10 mg tablet active Medicati on ID: [id number] B rand Name: monteluk ast Send Method: E-Prescr ibed Sub s Allowed: subs OK Medic ationGen ericName : monteluk ast Not Available Not Available Not Available azelastin e 137 mcg (0.1 %) nasal spray USE 2 SPRAYS IN EACH NOSTRIL TWICE DAILY active Not Available Not Available No t Available epinephri ne 0.3 mg/0.3 mL injection , auto-inje ctor Inject 1 pen injector single dose as needed 2023 active Not Available Not Available Not Avai lable polyethyl kae glycol 3350 17 gram/dose oral powder 05/09 completed Medicati on ID: [id number] D uration Value: 7 Brand Name: polyethy vivian glycol 3350 Sen d Method: E-Prescr ibed Sub s Allowed: subs OK Speci al Instruct ion: TK DIRECTED ONCE A DAY PO FOR 7 DAYS Med icationG enericNa me: polyethy vivian glycol 3350 Not Available Not Available Not Available albuterol sulfate HFA 90 mcg/actua tion aerosol inhaler INHALE 2 PUFFS EVERY 4 TO 6 HOURS NEEDED FOR SHORTNES S OF BREATH OR FOR WHEEZE active Not Available Not Available No t Available celecoxib 100 mg capsule TAKE 1 CAPSULE BY MOUTH TWICE A DAY DO NOT TAKE WITH OTHER NSAID MEDICATI ON. active Not Available Not Available No t Available fluticaso ne propionat e 50 mcg/actua tion nasal spray,[employer] SHAKE LIQUID AND USE 2 SPRAYS IN EACH NOSTRIL DAILY active Not Available Not Available No t Available lamotrigi ne 100 mg tablet TAKE 1 TABLET EVERY MORNING AND TAKE 2 TABLETS EVERY DAY AT BEDTIME DIRECTED active Not Available Not Available No t Available tinidazol e 500 mg tablet TAKE 4 TABLETS BY MOUTH ONCE active Not Available Not Available No t Available emtricita bine 200 mg-tenofo vir disoproxi l fumarate 300 mg tablet TAKE 1 TABLET BY MOUTH EVERY DAY FOR 90 DAYS active Not Available Not Available No t Available tizanidin e 2 mg capsule TAKE 1 CAPSULE BY ORAL ROUTE EVERY 8 HOURS FOR 30 DAYS active Not Available Not Available No t Available quetiapin e 50 mg tablet TAKE 1 AND 1/2 TABLETS EVERY DAY BY ORAL ROUTE AT BEDTIME. active Not Available Not Available No t Available hydrochlo rothiazid e 12.5 mg tablet TAKE 1 TABLET BY MOUTH EVERY DAY active Not Available Not Available No t Available Breo Ellipta 200 mcg-25 mcg/dose powder for inhalatio n INHALE 1 PUFF BY MOUTH DAILY active Not Available Not Available No t Available Descovy 200 mg-25 mg tablet TAKE 1 TABLET BY MOUTH DAILY active Not Available Not Available No t Available baclofen 5 mg tablet TAKE 1 TABLET BY MOUTH THREE TIMES DAILY active Not Available Not Available No t Available Accrufer 30 mg capsule TAKE 1 CAPSULE BY MOUTH TWICE A DAY active Not Available Not Available No t Available Vitals None Recorded Social History None recorded. Functional Status None recorded. Mental Status None recorded. Family History Nothing Reported. Medical History No medical history recorded. Past Encounters Encounter ID Performer Location Encounter Start Date Encounter Closed Date Diagnosis/Indication Diagnosis SNOMED-CT Code Diagnosis ICD10 Code Diagnosis Note [id number] RACH HIGGINS RMA Allergy [address] [facility] 100 [place] [address] 06/10/2024 11:58:14 06/10/2024 11:59:43 Perennial allergic rhinitis 234670417 J30.89 [id number] LIZZIE ROSSI [facility] Allergy [address] [place] [address] [address] [place] [address] 06/26/2024 17:06:19 06/26/2024 17:28:11 Perennial allergic rhinitis [id number] J30.89 [id number] RACH HIGGINS A Allergy [address] [place] [address], [address] [place] [address] 07/03/2024 13:24:02 07/03/2024 13:25:23 Perennial allergic rhinitis 305340784 J30.89 Health Concerns Section Related Observation LastModified by Organization Detai ls LastModified Time None Recorded Concern Status LastModified by Organization Details LastModified Time None Recorded Payers Encounter Date Sequence Insurance Name Policy Number Policy Koenig Covered Member ID Keonig Member ID Guarantor Name 07/03/2024 1 [facility] [id number] Bon Knapp [id number] Bon Knapp
--- OUTSIDE RECORDS SUMMARY | 2024-07-12 13:53 | XMS_ITS | Data Portability ---
Author Organization [place] [facility], Allergy Address [address] [place] [id number] Assessment Encounter Date Assessment Date Assessment LastModified by Organization Details LastModified Time 05/14/2024 05/14/2024 Administered By: SAL Nugent Use of Antihistamines: Yes If yes: Vial Test Change in medications: No If yes ? ? ? Increase in asthma symptoms If yes, inhaler use: Reaction to last injections: No If yes: ? ? ? Allergy Symptoms: Other: ? ? ? Missed 1 week Dose Notes:? ? ?aware now biweekly [email or web address] Not available 05/14/2024 15:52:56 05/30/2024 05/30/2024 Administered By: Elle Chatman RN Use of Antihistamines: Yes If yes: Vial Test Change in medications: No If yes ? ? ? Increase in asthma symptoms No If yes, inhaler use: Reaction to last injections: No If yes: ? ? ? Allergy Symptoms: Other: ? ? ? Missed 1 week Dose Notes:? ? ? [email or web address] Not available 05/30/2024 16:26:14 06/10/2024 06/10/2024 Visit With: SAL Nugent Use of Antihistamines: Yes If yes: Vial Test Change in medications: No If yes ? ? ? Increase in asthma symptoms If yes, inhaler use: Reaction to last injections: No If yes: ? ? ? Allergy Symptoms: Other: ? ? ? Missed: Dose Aware of Vial Test Notes:? ? ? dominik Not available 06/10/2024 11:59:25 06/26/2024 06/26/2024 Visit With: Rach Korzec, RMA Use of Antihistamines: No If yes: Vial Test Change in medications: No If yes ? ? ? Increase in asthma symptoms If yes, inhaler use: Reaction to last injections: No If yes: ? ? ? Allergy Symptoms: Other: ? ? ? Missed: Dose Aware of Vial Test Yes Notes:? ? ? [email or web address] Not available 06/26/2024 17:24:08 07/03/2024 07/03/2024 Visit With: SAL Nugent Use of Antihistamines: No If yes: Vial Test Yes Change [...] Organization Details Last Modified Time Details Appointments [facility]- Allergy f-up 6mon 2024 01:00P M MAGO [...] Organization Details Recorded Time Posterior rhinorrhe a 97065065 Active 2017 Postnasal drip; Note: Date Diagnosed: 05/04/2018 11:24 AM (R09.82) Not Available [facility] 03:23:27 Allergic rhinitis 11164517 Active 2023 Allergic rhinitis: Due to other [...] 4:22 PM (477.8) Note: Gagan Not Available [facility] 4 01:27:26 Peritonsi llar abscess 11408294 Active 2015 Peritonsil lar abscess; Note: Date Diagnosed: 03/14/2016 4:15 PM (J36) Not Available [facility] 4 03:23:27 Nasal congestio n 41474433 Active 2017 Nasal congestion ; Note: Date Diagnosed: 05/04/2018 11:24 AM (R09.81) Not Available [facility] 4 03:23:27 Seasonal allergic rhinitis 315958209 Active 2018 Other seasonal allergic rhinitis; Note: Date Diagnosed: 07/16/2018 10:13 AM (J30.2) Not Available [facility] 4 03:23:27 Perennial allergic rhinitis 157610762 Active 2023 [facility], [address],[place] [address], [place], [address] , [place] - [facility] [place] 16:31:36 Problem Notes None recorded. Procedures Surgical History Date Name Laterality Status Provider Name and Address Organization Details Recorded Time 07/03/19 25 Allergy Immunotherapy Injections completed RACH HIGGINS RMA [address],[place], [place], [address], [place] [facility] 07/03/2024 13:24:50 06/26/19 25 Allergy Immunotherapy Injections completed SAL GALINDO [address],[place], [place], [address], [place] [facility] 06/26/2024 17:24:00 06/10/20 24 Allergy Immunotherapy Injections completed RACH HIGGINS RMA [address],[place], [place], [address], [place] [facility] 06/10/2024 11:59:19 05/30/20 24 Allergy Immunotherapy Injections completed ELLE CHATMAN RN [address] [facility] [address] [place] [address] [place] [address], [address], [place] [facility] 05/30/2024 16:26:26 05/14/20 24 Allergy Immunotherapy Injections completed RACH HIGGINS RMA [address],[place] [address] [place] [address], [address], [place] [facility] [place] 05/14/2024 15:52:38 05/10/20 24 Allergy Immunotherapy Injections completed SAL GALINDO [address],[place] [address] [place] [address], [address], [place] [facility] [place] 05/10/2024 13:56:20 05/01/20 24 Allergy Immunotherapy Injections completed ELLE CHATMAN RN [address],[place] [address] [place] [address], [address], [place] [facility] [place] 05/01/2024 16:20:08 04/17/20 24 Allergy Immunotherapy Injections completed RACH HIGGINS RMA [address],[place], [place], [address], [place] [facility] 04/17/2024 16:48:38 04/10/20 24 Allergy Immunotherapy Injections completed ELLE CHATMAN RN [address], [place], [address], [place] [facility] [place] 04/10/2024 16:17:42 04/03/20 24 Allergy Immunotherapy Injections completed SAL GALINDO [address], [place], [address], [place] [facility] [place] 04/03/2024 17:19:19 03/27/20 24 Allergy Immunotherapy Injections completed RACH HIGGINS, RMA [address], [place], [address], [place] [facility] [place] 03/27/2024 17:11:33 03/19/20 24 Allergy Immunotherapy Injections completed RACH HIGGINS RMA [address], [place], [address], [place] [facility] [place] 03/19/2024 16:18:00 03/12/20 24 Allergy Immunotherapy Injections completed SAL GALINDO [address], [place], [address], [place] [facility] [place] 03/12/2024 16:59:58 03/06/20 24 Allergy Immunotherapy Injections completed SAL GALINDO [address],[place], [place], [address], [place] [facility] [place] 03/06/2024 16:53:38 02/21/20 24 Allergy Immunotherapy Injections completed SAL GALINDO [address],[place], [place], [address], [place] [facility] [place] 02/21/2024 17:06:21 02/16/20 24 Allergy Immunotherapy Injections completed LIZZIE ROSSI RMA [address],[place], [place], [address], [place] [facility] [place] 02/16/2024 11:38:32 02/09/20 24 Allergy Immunotherapy Injections completed RACH HIGGINS RMA [address], [place], [address], [place] [facility] [place] 02/09/2024 14:15:11 01/31/20 24 Allergy Immunotherapy Injections completed RACH KORZEC, RMA [address], [place], [address], [place] [facility] [place] 01/31/2024 16:45:20 01/24/20 24 Allergy Immunotherapy Injections completed TONI GALINDOA [address], [place], [address], [place] [facility] [place] 01/24/2024 16:54:44 01/09/20 24 Allergy Immunotherapy Injections completed RACH WILDERC, RMA [address], [place], [address], [place] [facility] [place] 01/09/2024 14:20:54 01/05/20 24 Allergy Immunotherapy Injections completed RACH WILDERC, RMA [address], [place], [address], [place] [facility] [place] [place] 01/05/2024 09:57:45 12/26/19 24 Allergy Immunotherapy Injections completed TONI GALINDOA [address],[place], [place], [address], [place] [facility] [place] 12/26/2023 15:50:59 12/19/19 24 Allergy Immunotherapy Injections completed ELLE CHATMAN RN [address], [place], [address], [place] [facility] [place] 12/19/2023 16:43:24 12/05/19 24 Allergy Immunotherapy Injections completed SAL GALINDO [address],[place], [place], [address], [facility] - [facility] [place] 12/05/2023 16:12:33 11/29/19 24 Allergy Immunotherapy Injections completed RACH RONALDO, RMA [address],[place], [place], [address], [place] [facility] [place] 11/29/2023 17:05:00 11/21/19 24 Allergy Immunotherapy Injections completed RACH WILDERC, RMA [address],[place], [place], [address], [place] [facility] [place] 11/21/2023 15:51:07 11/20/19 24 Telehealth completed MAGO CAZARES PA-C [address] [facility],[place] [address], [place], [address], [facility] - [facility] 11/20/2023 09:23:48 11/16/19 24 Allergy Immunotherapy Injections completed LIZZIE ROSSI, [facility] [address] [place], [place], [address], [facility] - [facility] 11/16/2023 15:52:45 11/08/19 24 Allergy Immunotherapy Injections completed RACH HIGGINS, [facility] [address],[facility], [place], [address], [facility] 11/08/2023 16:32:04 Imaging Results None recorded. Procedure Notes None recorded. Medical Equipment None Reported. Allergies Allergen ID Allergen Name Allergen Category Reaction Reaction Severity Criticality Documentation Date Start Date Code Code System Note Provider Name and Address Organization Details Recorded Time 575831 amoxicill in medicatio n other Not available Not available 10/31/2023 723 RxNorm React ion: unkno wn, unspe cifie d;; Not Available [facility] 01:26:29 Medications Name Sig Start Date [...] mg tablet 07/02 completed Medicati on ID: [id number] R hoa: () Brand Name: Zoloft S end Method: E-Prescr ibed Sub s Allowed: subs OK Medic ationGen ericName : Zoloft Not Available Not Available [...] elayed release 2017 active Medicati on ID: [id number] D uration Value: 30 Brand Name: omeprazo le Send Method: E-Prescr ibed Sub s Allowed: subs OK Speci al Instruct ion: TK 1 C PO QD Medic ationGen ericName : omeprazo le Not Available Not Available Not Available [address] 10 mg tablet active Medicati on ID: [id number] B rand Name: monteluk ast Send Method: [...] oral powder 05/09 completed Medicati on ID: [id number] D uration Value: 7 Brand Name: polyethy [...] SNOMED-CT Code Diagnosis ICD10 Code Diagnosis Note 1220 ADRIANE MUNGUIA MD Allergy [address] [place] [address], [place] [address] 11/08/2023 16:25:39 11/08/2023 16:41:51 Perennial allergic rhinitis 545394793 J30.89 2141 LIZZIE ROSSI [facility] Allergy [address] [place] [address] [place] [address] 11/16/2023 15:49:56 11/16/2023 16:13:57 Perennial allergic rhinitis 940727558 J30.89 2370 ADRIANE MUNGUIA MD [facility] [address] [place] [address] 11/20/2023 09:08:47 11/20/2023 12:24:36 Allergic rhinitis 21179582 J30.89 2765 [facility] Allergy [address] [place] [address] [address] [place] [address] 11/21/2023 15:42:39 11/21/2023 15:56:49 Perennial allergic rhinitis 926686662 J30.89 3847 [facility] Allergy [address] [place] [address] it [address] [place] [address] 11/29/2023 17:03:35 11/29/2023 17:30:37 Perennial allergic rhinitis 832817289 J30.89 4601 LIZZIE ROSSI [facility] Allergy [address] [place] [address] [place] [address] 12/05/2023 15:42:32 12/05/2023 16:15:18 Perennial allergic rhinitis 686038695 J30.89 6404 ELLE CHATMAN RN Allergy [address] [place] [address] [address] [place] [address] 12/19/2023 16:32:38 12/19/2023 16:44:57 Perennial allergic rhinitis 048784670 J30.89 7147 LIZZIE ROSSI RMA Allergy [address] [facility],[place] [address] [address] [place] [address] 12/26/2023 15:43:58 12/27/2023 11:12:10 Perennial allergic rhinitis 571805879 J30.[address] [facility], RMA Allergy [address] [facility],[place] [address] [place] [address] 01/05/2024 09:25:36 01/15/2024 11:18:45 Perennial allergic rhinitis 440996524 J30.[address] [facility], RMA Allergy [address] [facility],[place] [address] [place] [address] 01/09/2024 14:14:43 01/09/2024 14:30:56 Perennial allergic rhinitis 439818679 J30.89 10215 LIZZIE ROSSI A Allergy [address] [place] [address],[place] [address] [place] [address] 01/24/2024 16:44:18 01/25/2024 11:44:33 Perennial allergic rhinitis 571108006 J30.[address] [facility], RMA Allergy [address] [facility],[place] [address] [place] [address] 01/31/2024 16:43:53 01/31/2024 16:47:47 Perennial allergic rhinitis 594534825 J30.[address] [facility], RMA Allergy [address] [facility],[place] [address] [place] [address] 02/09/2024 14:14:10 02/09/2024 14:21:50 Perennial allergic rhinitis 089484561 J30.89 96750 LIZZIE ROSSI A Allergy [address] [facility],[place] [address] [place] [address] 02/16/2024 11:37:33 02/16/2024 11:41:23 Perennial allergic rhinitis 303038412 J30.89 49015 LIZZIE ROSSI A Allergy [address] [facility],[place] [address] [place] [address] 02/21/2024 17:03:57 02/21/2024 17:18:03 Perennial allergic rhinitis 546171038 J30.89 [id number] ILZZIE FLO [facility] Allergy [address] [place] [address],[place] [address] [place] [address] 03/06/2024 16:52:37 03/06/2024 17:15:08 Perennial allergic rhinitis 467533725 J30.89 52374 LIZZIE FLO [facility] Allergy [address] [place] [address],[place] [address] [place] [address] 03/12/2024 16:58:15 03/25/2024 18:03:35 Perennial allergic rhinitis 938683851 J30.[address] [facility], [facility] Allergy [address] [place] [address],[place] [address] [place] [address] 03/19/2024 16:16:58 03/19/2024 16:18:41 Perennial allergic rhinitis 290652848 J30.89 56328 [facility] Allergy [address] [place] [address], [address] [place] [address] 03/27/2024 17:10:52 03/27/2024 17:12:05 Perennial allergic rhinitis 663679597 J30.89 27597 LIZZIE FLO [facility] Allergy [address] [place] [address], [address] [place] [address] 04/03/2024 16:53:01 04/03/2024 17:21:14 Perennial allergic rhinitis 748402176 J30.89 18482 ELLE CHATMAN RN Allergy [address] [place] [address] [address] [place] [address] 04/10/2024 16:16:30 04/10/2024 16:18:14 Perennial allergic rhinitis 998493357 J30.89 48318 [facility] Allergy [address] [place] [address],[place] [address] [place] [address] 04/17/2024 16:47:18 04/17/2024 16:49:05 Perennial allergic rhinitis 238292837 J30.89 08841 ELLE CHATMAN RN Allergy [address] [place] [address], [address] [place] [address] 05/01/2024 16:19:15 05/01/2024 16:20:47 Perennial allergic rhinitis 844869576 J30.89 [id number] LIZZIE FLO [facility] Allergy [address] [place] [address],[place] [address] [place] [address] 05/10/2024 13:55:19 05/10/2024 13:56:55 Perennial allergic rhinitis 075873965 J30.89 53649 RACH WILDER [facility] Allergy [address] [place] [address],[place] [address] [address] [place] [address] 05/14/2024 15:51:59 05/14/2024 15:53:12 Perennial allergic rhinitis 572469507 J30.89 [id number] ELLE CHATMAN RN Allergy [address] [place] [address],[place] [address] [place] [address] 05/30/2024 16:24:19 05/30/2024 16:26:46 Perennial allergic rhinitis 832346039 J30.89 21216 RACH WILDER [facility] Allergy [address] [place] [address], [address] [place] [address] 06/10/2024 11:58:14 06/10/2024 11:59:43 Perennial allergic rhinitis 116919621 J30.89 40521 LIZZIE ROSSI [facility] Allergy [address] [place] [address],[place] [address] [place] [address] 06/26/2024 17:06:19 06/26/2024 17:28:11 Perennial allergic rhinitis 163338281 J30.89 87017 RACH WILDER [facility] Allergy [address] [place] [address], [address] [place] [address] 07/03/2024 13:24:02 07/03/2024 13:25:23 Perennial allergic rhinitis 229612664 J30.89 Health Concerns Section Related Observation LastModified by Organization Detai ls LastModified Time None Recorded Concern Status LastModified by Organization Details LastModified Time None Recorded Advance Directives Directive None Recorded Payers Encounter Date Sequence Insurance Name Policy Number Policy Koenig Covered Member ID Koenig Member ID Guarantor Name 05/14/2024 1 [facility] [id number] Bon Knapp [id number] Bon Knapp 05/30/2024 1 [facility] [id number] Bon Knapp [id number] Bon Knapp 06/10/2024 1 [facility] [id number] Bon Knapp [id number] Bon Knapp 06/26/2024 1 [facility] [id number] Bon Knapp [id number] Bon Knapp 07/03/2024 1 [facility] [id number] Bon Knapp [id number] Bon Knapp
--- OUTSIDE RECORDS SUMMARY | 2024-07-12 13:53 | XMS_ITS | Patient Health Record ---
Author Organization [facility] Address [address] [place] [address] Care Team Providers Care Child Development Consultant Name Role Phone COURTNEY SIMS Unavailable [phone] ALLERGIES Allergen (clinical drug ingredient) Drug/Non Drug Allergy documented on EMR Reaction Allergy Type Onset Date Status amoxicillin Amoxicillin rash Drug Allergy Act crissy REASON FOR REFERRAL No Information MEDICATIONS Medication SIG (Take, Route, Fr equency, Duration) Notes Start Date End Date Status Phentermine HCl 30 MG 1 capsule Orally O nce a day for 30 days Active Wegovy 1mg 1mg 1mg subcutaneous wee kly for 30 days Active SOCIAL HISTORY Tobacco Use: Social History Observation Description Date Details (start date - stop date) Never Smoker NA - NA Sex Assigned At : Social History Observation Description Sex Assigned At Unknown Tobacco Use/Smoking Question Answer Notes Are you a nonsmoker PROBLEMS Problem Type ICD Code Onset Dates Problem Status W/U Status Risk SNOMED Code Notes Problem Other obesity due to excess calories (E66.09) Active confirmed 454666718 Problem Other obesity (E66.8) Active confirmed Obesity (289313920) Problem Eating disorder, unspecified (F50.9) Active confirmed Eating disorder (16858530) Problem Morbid obesity (E66.01) Active confirmed 981873826 Problem BMI 40.0-44.9, adult (Z68.41) Active confirmed Body mass index 40+ - morbidly obese (402006524) Problem Body mass index [BMI] 38.0-38.9, adult (Z68.38) Active confirmed 184820383 Problem Obesity (BMI 35.0-39.9 without comorbidity) (E66.9) Active confirmed 050176873 Problem Adult BMI 37.0-37.9 kg/sq m (Z68.37) Active confirmed 894574818 Problem Body mass index [BMI] 40.0-44.9, adult (Z68.41) Active confirmed 991898010 Problem Bipolar affective disorder, current episode manic, current episode severity unspecified (F31.10) Active confirmed Manic bipolar I disorder (33409496) Encounters Encounter Location Date Provider Diagnosis [place] [address] [address] 01/30/2024 COURTNEY SIMS PLAN OF TREATMENT No Information Insurance Providers Payer Name Payer Address Payer Phone Subscriber Number Group Number Insured Name Patient Relationship to Insured Coverage Start Date Coverage End Date [facility] [address] [place] [address] [id number] Bon Knapp Self - patient is the insured 1 MEDICAL (GENERAL) HISTORY Medical History History ICD Code asthma Surgical History Surgery Date(Month/Year) wisdom teeth extraction 2010
--- OUTSIDE RECORDS SUMMARY | 2024-07-12 13:53 | XMS_ITS | Clinical Summary ---
Author Organization [facility] Address [address] [place] [address] Care Team Providers Care Surgical Scrub Technician Name Role Phone Pcp, No Primary Care Provider Unavailabl e Allergies No known active allergies Medications Medication Sig Dispensed Refills Start Date End Date Status lamoTRIgine (LaMICtal) 100 MG tablet Take 1 tablet (100 mg total) by mouth daily. Active QUEtiapine (SEROquel) 50 MG tablet Take 1 tablet (50 mg total) by mouth nightly. Active [place] 3 1000 MG Cap capsule Take 2,150 mg by mouth daily. Administer whole. Do not break. Active Active Problems Problem Noted Date Diagnosed Date Bipolar two disorder 02/21/2023 02/21/2023 Anxiety 02/21/2023 02/21/2023 GERD (gastroesophageal reflux disease) 02/21/2023 Osteoarthritis 02/21/2023 02/21/2023 Binge eating disorder 02/21/2023 Obesity, Class III, BMI 40-49.9 (morbid obesity) 02/21/2023 Social History Tobacco Use Types Packs/Day Years Used Date Smoking Tobacco: Never Smokeless Tobacco: Never Tobacco Cessation:Counseling Given: Not Answered Alcohol Use Standard Drinks/Week Comments Not Currently 0 (1 standard drink = 0.6 oz pur e alcohol) [facility] - Occupational Stress Questionnaire Answer Date Recorded Do you feel stress - tense, restless, nervous, or anxious, or unable to sleep at night because your mind is troubled all the time - these days? Not at all 02/21/2023 Physical Activity Answer Date Recorded Days of Exercise per Week Not on file 2022 On average, how many minutes do you exercise per day at this level? 0 02/21/2023 Sex and Gender Information Value Date Recorded Sex Assigned at Choose not to disclose 10/2022 8:36 AM EDT Gender Identity Male 12/11/2022 2:26 PM EDT Sexual Orientation Choose not to disclose 2022 8:36 AM EDT Last Filed Vital Signs Vital Sign Reading Time Taken Comments Blood Pressure 132/87 02/21/2023 2:41 PM EDT Pulse 93 02/21/2023 2:41 PM EDT Temperature - - Respiratory Rate - - Oxygen Saturation - - Inhaled Oxygen Concentration - - Weight 128 kg (282 lb 1.6 oz) 02/21/2023 2:41 PM EDT Height 175.3 cm (5' 9 ) 02/21/2023 2:41 PM EDT Body Mass Index 41.66 02/21/2023 2:41 PM EDT Plan of Treatment Health Maintenance Due Date Last Done Comments Hepatitis C Virus Screening 1992 HIV Screening 2005 DTaP/Tdap/Td Vaccines (1 - Tdap) 2011 Hepatitis B Vaccines (1 of 3 - 19+ 3-dose series) 2011 Pap Smear (Ages 21-65) 2013 Influenza Vaccine 01/18/2024 COVID-19 Vaccine (1 - 2023-2 5 season) 2024 HPV Vaccines Aged Out No longer eligi ble based on patient's age to complete this topic Pneumococcal Vaccine: Pediat agustin (0-5 Years) and At-Risk Patients (6 to 49 Years) Aged Out No longer eligible b ased on patient's age to complete this topic Care Teams Surgical Scrub Technician Relationship Specialty Start Date End Date Pcp, No [address] [place] [address] PCP - General 11/23/22
== END 2024-07-12 12:28 | disposition home or self-care (01) ==
PROVIDERS: PCP Family Medicine; Visit Provider Registered Nurse Emergency
DX: M47.814 Spondylosis without myelopathy or radiculopathy, thoracic region (principal); M54.6 Pain in thoracic spine
CPT/HCPCS: 99024

== ENCOUNTER → 2024-07-12 11:42 | Outpatient (BNVA) | payer OTHER, SELFPAY | PROVIDERS: PCP Family Medicine; Visit Provider Registered Nurse Emergency ==

== ENCOUNTER 2024-07-18 06:29 | Outpatient (REF) | payer OTHER, SELFPAY ==
--- NOTE | ~2024-07-18 | FL_ITS ---
EXAMINATION: FL GUIDANCE ONLY HISTORY: M47.814 - Spondylosis without myelopathy or radiculopathy, thoracic region COMPARISON: None available. TECHNIQUE: Fluoroscopy time: 0.1 minute. Cumulative Dose: 4.40 mGy. DAP: 0.0441 uGy-m2 (microgray-meter squared). Images: 3. FINDINGS: Images demonstrate a probe and multiple leads overlying the lower thoracic spine. FL/FL guidance in treatment room IMPRESSION: Fluoroscopy during procedure. Please see procedure report for additional information. Electronically signed by: Benja Alexander MD 07/18/2024 10:23 AM DOTTY VU
--- OUTSIDE RECORDS SUMMARY | 2024-07-18 06:31 | XMS_ITS | Clinical Summary ---
Author Organization [facility] Address [address] [place] [address] Phone Care Team Providers Care Medical Insurance Clerk Name Role Phone Gonzalez Sparks MD Primary Care Provider [phone] Allergies Active Allergy Reactions Criticality Noted Date Comments Amoxicillin 04/28/2023 Encounters Date Type Department Care Team Description 06/20/2024 Telephone Gastroenterology [facility] 175 [facility] 175 [facility] [address] [place] [address] Brian Bland DO cancel special [...] age to complete this topic Care Teams Medical Insurance Clerk Relationship Specialty Start Date End Date Gonzalez Sparks MD [address] [place], [place] PCP - General 04/19/23
--- OUTSIDE RECORDS SUMMARY | 2024-07-18 06:32 | XMS_ITS | Clinical Summary ---
Author Organization [facility] Address [address] [place] [address] Care Team Providers Care Ecclesiastical Worker Name Role Phone Pcp, No Primary Care Provider Unavailabl e Allergies No known active allergies Medications Medication Sig Dispensed Refills Start Date End Date Status lamoTRIgine (LaMICtal) 100 MG tablet Take 1 tablet (100 mg total) by mouth daily. Active QUEtiapine (SEROquel) 50 MG tablet Take 1 tablet (50 mg total) by mouth nightly. Active [place] 3 1000 MG Cap capsule Take 2,150 [...] drink = 0.6 oz pur e alcohol) [facility] [place] [facility] - Occupational Stress [...] age to complete this topic Care Teams Ecclesiastical Worker Relationship Specialty Start Date End Date Pcp, No [address] [place] [address] PCP - General 11/23/22
--- OUTSIDE RECORDS SUMMARY | 2024-07-18 06:32 | XMS_ITS | Encounter Summary ---
Author Organization [facility] Address [address] [place] [address] Care Team Providers Care Television Tube Inspector Name Role Phone Gonzalez Sparks MD Primary Care Provider [phone] Reason for Visit * Reason Onset Date Comments cancel special procedure 06/20/2024 Encounter Details Date Type Department Care Team (Late st Contact Info) Description 06/20/2024 Telephone Gastroenterology - [place] [address] [place] [id number] Brian Bland DO [address] [place] [address] cancel special procedure Social History Tobacco Use [...] on filedocumented in this encounter Care Teams Television Tube Inspector Relationship Specialty Start Date End Date Gonzalez Sparks MD [address] [facility] [address] [place], [place] PCP - General 04/19/23 documented as of this encounter
--- OUTSIDE RECORDS SUMMARY | 2024-07-18 06:32 | XMS_ITS | Continuity of Care Document ---
Author Organization [place] [facility], Allergy Address [address] [address] Assessment Encounter Date Assessment Date Assessment LastModified by Organization Details LastModified Time 07/17/2024 07/17/2024 Visit With: SAL Nugent Use of Antihistamine s: No If yes: Vial Test Change in medications: No If yes ? ? ? Increase in asthma symptoms No If yes, inhaler use: Reaction to last injections: No If yes: ? ? ? Allergy Symptoms: Other: ? ? ? Missed: Dose Aware of Vial Test Notes:? ? ? [email or web address] Not available 07/17/2024 17:03:42 Plan of Treatment Reminders Order Date Submit Date Provider Last Modified By Organization Details Last Modified Time Details Appointments [facility]- Allergy f-up 6mon 2024 01:00P M [...] Organization Details Recorded Time Posterior rhinorrhe a 61466253 Active 2017 Postnasal drip; Note: Date Diagnosed: 05/04/2018 11:24 AM (R09.82) Not Available [facility] 03:23:27 Allergic rhinitis 42956187 Active 2023 Allergic rhinitis: Due to other [...] 4:22 PM (477.8) Note: Gagan Not Available [facility] 4 01:27:26 Peritonsi llar abscess 77627342 Active 2015 Peritonsil lar abscess; Note: Date Diagnosed: 03/14/2016 4:15 PM (J36) Not Available [facility] 4 03:23:27 Nasal congestio n 58300090 Active 2017 Nasal congestion ; Note: Date Diagnosed: 05/04/2018 11:24 AM (R09.81) Not Available [facility] 4 03:23:27 Seasonal allergic rhinitis 504655077 Active 2018 Other seasonal allergic rhinitis; Note: Date Diagnosed: 07/16/2018 10:13 AM (J30.2) Not Available [facility] 4 03:23:27 Perennial allergic rhinitis 625683351 Active 2023 RACH HIGGINS, RMA [address], [place], [address] , [place] - [facility] 16:31:36 Problem Notes None recorded. Procedures Surgical History Date Name Laterality Status Provider Name and Address Organization Details Recorded Time 07/17/19 25 Allergy Immunotherapy Injections completed ELLE CHATMAN RN [address] [facility], [place], [address], [place] - [facility] 07/17/2024 17:03:31 07/03/19 25 Allergy Immunotherapy Injections completed SAL NUGENT [address],[place] [address] [place] [address], [address], [place] - [facility] 07/03/2024 13:24:50 06/26/19 25 Allergy Immunotherapy Injections completed SAL GALINDO [address] [place] [address], [phone], [facility] - [facility] 06/26/2024 17:24:00 06/10/20 24 Allergy Immunotherapy Injections completed SAL NUGENT [address] [place] [address], [phone], [facility] - [facility] 06/10/2024 11:59:19 05/30/20 24 Allergy Immunotherapy Injections completed ELLE CHATMAN RN [address], [place], [address], [facility] - [facility] 05/30/2024 16:26:26 05/14/20 24 Allergy Immunotherapy Injections completed RACH HIGGINS RMA [address] [place] [address], [phone], [facility] - [facility] 05/14/2024 15:52:38 05/10/20 24 Allergy Immunotherapy Injections completed SAL GALINDO [address], [place], [address], [place] [facility] 05/10/2024 13:56:20 05/01/20 24 Allergy Immunotherapy Injections completed ELLE CHATMAN RN [address], [place], [address], [place] [facility] 05/01/2024 16:20:08 04/17/20 24 Allergy Immunotherapy Injections completed RACH HIGGINS, RMA [address], [place], [address], [place] [facility] 04/17/2024 16:48:38 04/10/20 24 Allergy Immunotherapy Injections completed ELLE CHATMAN RN [address], [place], [address], [place] [facility] 04/10/2024 16:17:42 04/03/20 24 Allergy Immunotherapy Injections completed SAL GALINDO [address], [place], [address], [place] [facility] 04/03/2024 17:19:19 03/27/20 24 Allergy Immunotherapy Injections completed RACH HIGGINS, RMA [address], [place], [address], [place] [facility] 03/27/2024 17:11:33 03/19/20 24 Allergy Immunotherapy Injections completed RACH HIGGINS, RMA [address], [place], [address], [place] [facility] 03/19/2024 16:18:00 03/12/20 24 Allergy Immunotherapy Injections completed SAL GALINDO [address], [place], [address], [place] [facility] 03/12/2024 16:59:58 03/06/20 24 Allergy Immunotherapy Injections completed SAL GALINDO [address], [place], [address], [place] [facility] 03/06/2024 16:53:38 02/21/20 24 Allergy Immunotherapy Injections completed SAL GALINDO [address], [place], [address], [place] [facility] 02/21/2024 17:06:21 02/16/20 24 Allergy Immunotherapy Injections completed LIZZIE ROSSI RMA [address], [place], [address], [place] [facility] 02/16/2024 11:38:32 02/09/20 24 Allergy Immunotherapy Injections completed RACH HIGGINS, RMA [address], [place], [address], [place] [facility] 02/09/2024 14:15:11 01/31/20 24 Allergy Immunotherapy Injections completed RACH HIGGINS, RMA [address], [place], [address], [place] [facility] 01/31/2024 16:45:20 01/24/20 24 Allergy Immunotherapy Injections completed TONI GALINDOA [address], [place], [address], [place] [facility] 01/24/2024 16:54:44 01/09/20 24 Allergy Immunotherapy Injections completed RACH HIGGINS, RMA [address], [place], [address], [place] [facility] 01/09/2024 14:20:54 01/05/20 24 Allergy Immunotherapy Injections completed RACH HIGGINS, RMA [address], [place], [address], [place] [facility] 01/05/2024 09:57:45 12/26/19 24 Allergy Immunotherapy Injections completed SAL GALINDO [address], [place], [address], [place] [facility] 12/26/2023 15:50:59 12/19/19 24 Allergy Immunotherapy Injections completed ELLE CHATMAN RN [address] [place] [address], [address], [place] [facility] 12/19/2023 16:43:24 12/05/19 24 Allergy Immunotherapy Injections completed LIZZIE ROSSI RMA [address], [place], [address], [place] - [facility] 12/05/2023 16:12:33 11/29/19 24 Allergy Immunotherapy Injections completed RACH WILDER, R[facility] [place], [address], [facility] - [facility] 11/29/2023 17:05:00 11/21/19 24 Allergy Immunotherapy Injections completed [facility], RMA [address] [facility] [place],[address], [address], [facility] - [facility] 11/21/2023 15:51:07 11/20/19 24 Telehealth completed MAGO CAZARES PA-C [address] [facility] [place] [address], [place], [address], [facility] - [facility] 11/20/2023 09:23:48 11/16/19 24 Allergy Immunotherapy Injections completed LIZZIE ROSSI, [facility] 100 [facility],[address], [address], [facility] - [facility] 11/16/2023 15:52:45 11/08/19 24 Allergy Immunotherapy Injections completed RACH MEÑO, A [address] [facility] [place],[address], [address], [facility] - [facility] 11/08/2023 16:32:04 Imaging Results None recorded. Procedure Notes None recorded. Medical Equipment None Reported. Allergies Allergen ID Allergen Name Allergen Category Reaction Reaction Severity Criticality Documentation Date Start Date Code Code System Note Provider Name and Address Organization Details Recorded Time 120411 amoxicill in medicatio n other Not available Not available 10/31/2023 723 RxNorm React ion: unkno wn, unspe cifie d;; Not Available [facility] 01:26:29 Medications Name Sig Start Date Stop [...] mg tablet 07/02 completed Medicati on ID: [id number] R hoa: () Brand Name: Zoloft S [...] elayed release 2017 active Medicati on ID: [id number] D uration Value: 30 Brand Name: omeprazo le Send Method: E-Prescr ibed Sub s Allowed: subs OK Speci al Instruct ion: TK 1 C PO QD Medic ationGen ericName : omeprazo le Not Available Not Available Not Available [address] 10 mg tablet active Medicati on ID: [id number] B rand Name: monteluk ast Send Method: [...] oral powder 05/09 completed Medicati on ID: [id number] D uration Value: 7 Brand Name: polyethy [...] SNOMED-CT Code Diagnosis ICD10 Code Diagnosis Note [id number] LIZZIE ROSSI [facility] Allergy [address] [place] [address],[address] [address] 06/26/2024 17:06:19 06/26/2024 17:28:11 Perennial allergic rhinitis [id number] J30.89 23913 RACH MEÑO [facility] All[facility] [address] [place] [address],[address] [address] 07/03/2024 13:24:02 07/03/2024 13:25:23 Perennial allergic rhinitis 047135289 J30.89 [id number] ELLE CHATMAN RN Allergy [address] [place] [address] [address] [place] [address] 07/17/2024 16:56:23 07/17/2024 17:03:56 Perennial allergic rhinitis 778672913 J30.89 Health Concerns Section Related Observation LastModified by Organization Detai ls LastModified Time None Recorded Concern Status LastModified by Organization Details LastModified Time None Recorded Payers Encounter Date Sequence Insurance Name Policy Number Policy Koenig Covered Member ID Koenig Member ID Guarantor Name 07/17/2024 1 [facility] [id number] Bon Knapp [id number] oBn Knapp
--- OUTSIDE RECORDS SUMMARY | 2024-07-18 06:32 | XMS_ITS | Data Portability ---
Author Organization [place] - [facility], Allergy Address [address] [place] [address] Assessment Encounter Date Assessment Date Assessment LastModified by Organization Details LastModified Time 05/30/2024 05/30/2024 Administered By: Elle Chatman RN [...] 05/30/2024 16:26:14 06/10/2024 06/10/2024 Visit With: SAL Navarro Use of Antihistamines: Yes If yes: Vial Test Change in medications: No If yes ? ? ? Increase in asthma symptoms If yes, inhaler use: Reaction to last injections: No If yes: ? ? ? Allergy Symptoms: Other: ? ? ? Missed: Dose Aware of Vial Test Notes:? ? ? dominik Not available 06/10/2024 11:59:25 06/26/2024 06/26/2024 Visit With: SAL Navarro Use of Antihistamines: No If yes: Vial Test Change in medications: No If yes ? ? ? Increase in asthma symptoms If yes, inhaler use: Reaction to last injections: No If yes: ? ? ? Allergy Symptoms: Other: ? ? ? Missed: Dose Aware of Vial Test Yes Notes:? ? ? [email or web address] Not available 06/26/2024 17:24:08 07/03/2024 07/03/2024 Visit With: SAL Navarro Use of Antihistamines: No If yes: Vial Test Yes Change in medications: No If yes ? ? ? Increase in asthma symptoms If yes, inhaler use: Reaction to last injections: No If yes: ? ? ? Allergy Symptoms: Other: ? ? ? Missed: Dose Aware of Vial Test Notes:? ? ? dominik Not available 07/03/2024 13:24:59 07/17/2024 07/17/2024 Visit With: SAL Navarro Use of Antihistamines: No If yes: Vial [...] Organization Details Last Modified Time Details Appointments [facility]- Allergy f-up 6mon 2024 01:00P Tobi CAZARES PA-C Not available Not available Not [...] Organization Details Recorded Time Posterior rhinorrhe a 85935902 Active 2017 Postnasal drip; Note: Date Diagnosed: 05/04/2018 11:24 AM (R09.82) Not Available [facility] 03:23:27 Allergic rhinitis 31095255 Active 2023 Allergic rhinitis: Due to other [...] 4:22 PM (477.8) Note: Gagan Not Available [facility] 4 01:27:26 Peritonsi llar abscess 60374983 Active 2015 Peritonsil lar abscess; Note: Date Diagnosed: 03/14/2016 4:15 PM (J36) Not Available [facility] 4 03:23:27 Nasal congestio n 75882284 Active 2017 Nasal congestion ; Note: Date Diagnosed: 05/04/2018 11:24 AM (R09.81) Not Available [facility] 4 03:23:27 Seasonal allergic rhinitis 482085226 Active 2018 Other seasonal allergic rhinitis; Note: Date Diagnosed: 07/16/2018 10:13 AM (J30.2) Not Available [facility] 4 03:23:27 Perennial allergic rhinitis 970674156 Active 2023 [facility], [facility] [address] [facility],[place] [address], [place], [address] , [place] - [facility] 16:31:36 Problem Notes None recorded. Procedures Surgical History Date Name Laterality Status Provider Name and Address Organization Details Recorded Time 07/17/19 25 Allergy Immunotherapy Injections completed ELLE CHATMAN RN [address], [address], [place] [facility] 07/17/2024 17:03:31 07/03/19 25 Allergy Immunotherapy Injections completed SAL NAVARRO [address], [address], [place] [facility] 07/03/2024 13:24:50 06/26/19 25 Allergy Immunotherapy Injections completed SAL GALINDO [address], [address], [place] [facility] 06/26/2024 17:24:00 06/10/20 24 Allergy Immunotherapy Injections completed SAL NAVARRO [address] [place] [address], [address], [place] [facility] 06/10/2024 11:59:19 05/30/20 24 Allergy Immunotherapy Injections completed ELLE CHATMAN RN [address] [place] [address], [address], [place] [facility] 05/30/2024 16:26:26 05/14/20 24 Allergy Immunotherapy Injections completed RACH HIGGINS RMNatasha [address] [place] [address], [address], [place] [facility] 05/14/2024 15:52:38 05/10/20 24 Allergy Immunotherapy Injections completed SAL GALINDO [address] [place] [address], [address], [place] [facility] 05/10/2024 13:56:20 05/01/20 24 Allergy Immunotherapy Injections completed ELLE CHATMAN RN [address], [address], [place] [facility] 05/01/2024 16:20:08 04/17/20 24 Allergy Immunotherapy Injections completed RACH KORZEC, RMA [address], [place], [address], [place] [facility] 04/17/2024 16:48:38 04/10/20 24 Allergy Immunotherapy Injections completed ELLE CHATMAN RN [address], [place], [address], [place] [facility] 04/10/2024 16:17:42 04/03/20 24 Allergy Immunotherapy Injections completed SAL GALINDO [address], [place], [address], [place] [facility] 04/03/2024 17:19:19 03/27/20 24 Allergy Immunotherapy Injections completed RACH HIGGINS RMNatasha [address], [place], [address], [place] [facility] 03/27/2024 17:11:33 03/19/20 24 Allergy Immunotherapy Injections completed SAL NAVARRO [address], [place], [address], [place] [facility] 03/19/2024 16:18:00 03/12/20 24 Allergy Immunotherapy Injections completed SAL GALINDO [address], [place], [address], [place] [facility] 03/12/2024 16:59:58 03/06/20 24 Allergy Immunotherapy Injections completed SAL GALINDO [address], [address], [place] [facility] 03/06/2024 16:53:38 02/21/20 24 Allergy Immunotherapy Injections completed SAL GALINDO [address], [place], [address], [place] [facility] 02/21/2024 17:06:21 02/16/20 24 Allergy Immunotherapy Injections completed TONI GALINDOA [address], [place], [address], [place] [facility] 02/16/2024 11:38:32 02/09/20 24 Allergy Immunotherapy Injections completed RACH KORZEC, RMA [address], [place], [address], [place] [facility] 02/09/2024 14:15:11 01/31/20 24 Allergy Immunotherapy Injections completed RACH HIGGINS, RMA [address], [place], [address], [place] [facility] 01/31/2024 16:45:20 01/24/20 24 Allergy Immunotherapy Injections completed TONI GALINDOA [address], [place], [address], [place] [facility] 01/24/2024 16:54:44 01/09/20 24 Allergy Immunotherapy Injections completed RACH HIGGINS RMA [address], [address], [place] [facility] 01/09/2024 14:20:54 01/05/20 24 Allergy Immunotherapy Injections completed RACH HIGGINS RMA [address], [place], [address], [place] [facility] 01/05/2024 09:57:45 12/26/19 24 Allergy Immunotherapy Injections completed TONI GALINDOA [address], [address], [place] [facility] 12/26/2023 15:50:59 12/19/19 24 Allergy Immunotherapy Injections completed ELLE CHATMAN RN [address], [address], [place] [facility] 12/19/2023 16:43:24 12/05/19 24 Allergy Immunotherapy Injections completed LIZZIE ROSSI RMA [address], [address], [place] [facility] 12/05/2023 16:12:33 11/29/19 24 Allergy Immunotherapy Injections completed RACH HIGGINS RMA [address], [address], [place] [facility] 11/29/2023 17:05:00 11/21/19 24 Allergy Immunotherapy Injections completed RACH HIGGINS, RMA [address], [place], [address], [facility] - [facility] 11/21/2023 15:51:07 11/20/19 24 Telehealth completed MAGO CAZARES PA-C [address], [place], [address], [facility] - [facility] 11/20/2023 09:23:48 11/16/19 24 Allergy Immunotherapy Injections completed LIZZIE ROSSI, [facility] [address], [place], [address], [facility] - [facility] 11/16/2023 15:52:45 11/08/19 24 Allergy Immunotherapy Injections completed RACH MEÑO, [facility] [address] [facility], [place], [address], [facility] - [facility] 11/08/2023 16:32:04 Imaging Results None recorded. Procedure Notes None recorded. Medical Equipment None Reported. Allergies Allergen ID Allergen Name Allergen Category Reaction Reaction Severity Criticality Documentation Date Start Date Code Code System Note Provider Name and Address Organization Details Recorded Time 366962 amoxicill in medicatio n other Not available Not available 10/31/2023 723 RxNorm React ion: unkno wn, unspe cifie d;; Not Available [facility] 4 01:26:29 Medications Name Sig Start Date [...] mg tablet 07/02 completed Medicati on ID: [id number] Tulio camara: () Brand Name: Zoloft S end Method: [...] elayed release 2017 active Medicati on ID: [id number] D uration Value: 30 Brand Name: omeprazo le Send Method: E-Prescr ibed Sub s Allowed: subs OK Speci al Instruct ion: TK 1 C PO QD Medic ationGen ericName : omeprazo le Not Available Not Available Not Available [facility] 10 mg tablet active Medicati on ID: [id number] B rand Name: monteluk ast Send Method: [...] oral powder 05/09 completed Medicati on ID: 385832 D uration Value: 7 Brand Name: polyethy [...] Diagnosis Note 1220 ADRIANE MUNGUIA MD Allergy [address] [place] [address], [place] [address] 11/08/2023 16:25:39 11/08/2023 16:41:51 Perennial allergic rhinitis 749760762 J30.89 2141 LIZZIE ROSSI [facility] Allergy [address] [place] [address], [place] [address] 11/16/2023 15:49:56 11/16/2023 16:13:57 Perennial allergic rhinitis 506292501 J30.89 2370 ADRIANE MUNGUIA MD [facility] [address] [place] [address] 11/20/2023 09:08:47 11/20/2023 12:24:36 Allergic rhinitis 34139319 J30.89 2765 [facility] Allergy [address] [place] [address] [address] [place] [address] 11/21/2023 15:42:39 11/21/2023 15:56:49 Perennial allergic rhinitis 372308142 J30.89 3847 [facility] Allergy [address] [place] [address] it [address] [place] [address] 11/29/2023 17:03:35 11/29/2023 17:30:37 Perennial allergic rhinitis 599656203 J30.89 9601 LIZZIE ROSSI [facility] Allergy [address] [place] [address] [place] [address] 12/05/2023 15:42:32 12/05/2023 16:15:18 Perennial allergic rhinitis 978398488 J30.89 6404 ELLE CHATMAN department secretary [address] [facility],[place] [address] [place] [address] 12/19/2023 16:32:38 12/19/2023 16:44:57 Perennial allergic rhinitis 391049868 J30.89 7147 LIZZIE ROSSI A Allergy [address] [facility],[place] [address] [place] [address] 12/26/2023 15:43:58 12/27/2023 11:12:10 Perennial allergic rhinitis 279229376 J30.89 8622 [facility], A Allergy [address] [facility],[place] [address] [place] [address] 01/05/2024 09:25:36 01/15/2024 11:18:45 Perennial allergic rhinitis [id number] J30.89 9128 [facility], A Allergy [address] [facility],[place] [address] [place] [address] 01/09/2024 14:14:43 01/09/2024 14:30:56 Perennial allergic rhinitis [id number] J30.89 01537 LIZZIE ROSSI [facility] Allergy [address] [place] [address],[place] [address] [place] [address] 01/24/2024 16:44:18 01/25/2024 11:44:33 Perennial allergic rhinitis 589031198 J30.89 30787 [facility], A Allergy [address] [facility],[place] [address] [place] [address] 01/31/2024 16:43:53 01/31/2024 16:47:47 Perennial allergic rhinitis 581841894 J30.89 68809 [facility], A Allergy [address] [facility],[place] [address] [place] [address] 02/09/2024 14:14:10 02/09/2024 14:21:50 Perennial allergic rhinitis 486957846 J30.89 31898 LIZZIE ROSSI A Allergy [address] [facility],[place] [address] [place] [address] 02/16/2024 11:37:33 02/16/2024 11:41:23 Perennial allergic rhinitis 853744641 J30.89 93062 LIZZIE FLO [facility] Allergy [address] [facility],[place] [address] [place] [address] 02/21/2024 17:03:57 02/21/2024 17:18:03 Perennial allergic rhinitis 966127149 J30.89 99874 LIZZIE FLO [facility] Allergy [address] [facility],[place] [address] [place] [address] 03/06/2024 16:52:37 03/06/2024 17:15:08 Perennial allergic rhinitis 469395499 J30.89 80157 LIZZIE FLO [facility] Allergy [address] [facility],[place] [address] [place] [address] 03/12/2024 16:58:15 03/25/2024 18:03:35 Perennial allergic rhinitis 108569980 J30.89 40646 [facility] Allergy [address] [place] [address],[place] [address] [place] [address] 03/19/2024 16:16:58 03/19/2024 16:18:41 Perennial allergic rhinitis 450459767 J30.89 94198 [facility], [facility] Allergy [address] [place] [address],[place] [address] [place] [address] 03/27/2024 17:10:52 03/27/2024 17:12:05 Perennial allergic rhinitis 104761246 J30.89 44057 LIZZIE FLO [facility] Allergy [address] [place] [address],[place] [address] [place] [address] 04/03/2024 16:53:01 04/03/2024 17:21:14 Perennial allergic rhinitis 290777521 J30.89 [id number] ELLE CHATMAN department secretary [address] [facility],[place] [address] [place] [address] 04/10/2024 16:16:30 04/10/2024 16:18:14 Perennial allergic rhinitis 811221212 J30.89 [address]7573 [facility], [facility] Allergy [address] [facility],[place] [address] [place] [address] 04/17/2024 16:47:18 04/17/2024 16:49:05 Perennial allergic rhinitis 704206045 J30.89 59405 ELLE CHATMAN RN Allergy [address] [place] [address],[place] [address] [place] [address] 05/01/2024 16:19:15 05/01/2024 16:20:47 Perennial allergic rhinitis [id number] J30.89 07715 LIZZIE ROSSI, [facility] Allergy [address] [place] [address],[place] [address] [place] [address] 05/10/2024 13:55:19 05/10/2024 13:56:55 Perennial allergic rhinitis 606425284 J30.89 94858 [facility], [facility] Allergy [address] [place] [address],[place] [address] [place] [address] 05/14/2024 15:51:59 05/14/2024 15:53:12 Perennial allergic rhinitis [id number] J30.89 75299 ELLE CHATMAN RN Allergy [address] [place] [address], [address] [place] [address] 05/30/2024 16:24:19 05/30/2024 16:26:46 Perennial allergic rhinitis [id number] J30.89 82064 [facility], [facility] Allergy [address] [place] [address],[place] [address] [place] [address] 06/10/2024 11:58:14 06/10/2024 11:59:43 Perennial allergic rhinitis 357210219 J30.89 88839 LIZZIE ROSSI, [facility] Allergy [address] [place] [address],[place] [address] [place] [address] 06/26/2024 17:06:19 06/26/2024 17:28:11 Perennial allergic rhinitis [id number] J30.89 [id number] [facility], A Allergy [address] [place] [address],[place] [address] [place] [address] 07/03/2024 13:24:02 07/03/2024 13:25:23 Perennial allergic rhinitis [id number] J30.89 [id number] ELLE CHATMAN RN Allergy [address] [place] [address],[place] [address] [place] [address] 07/17/2024 16:56:23 07/17/2024 17:03:56 Perennial allergic rhinitis 300444943 J30.89 Health Concerns Section Related Observation LastModified by Organization Detai ls LastModified Time None Recorded Concern Status LastModified by Organization Details LastModified Time None Recorded Advance Directives Directive None Recorded Payers Encounter Date Sequence Insurance Name Policy Number Policy Koenig Covered Member ID Koenig Member ID Guarantor Name 05/30/2024 1 [employer]) [id number] Bon Knapp [id number] Bon Knapp 06/10/2024 1 [employer]) [id number] Bon Knapp [id number] Bon Knapp 06/26/2024 1 [employer]) [id number] Bon Knapp [id number] Bon Knapp 07/03/2024 1 [employer]) [id number] Bon Knapp [id number] Bon Knapp 07/17/2024 1 [facility] [id number] Bon Knapp [id number] Bno Knapp
--- OUTSIDE RECORDS SUMMARY | 2024-07-18 06:32 | XMS_ITS | Patient Health Record ---
Author Organization [facility] Address [address] [place] [address] Care Team Providers Care Air Motor Repairer Name Role Phone COURTNEY SIMS Unavailable [phone] ALLERGIES Allergen (clinical drug ingredient) Drug/Non Drug [...] due to excess calories (E66.09) Active confirmed 751616180 Problem Other obesity (E66.8) Active confirmed Obesity (051708068) Problem Eating disorder, unspecified (F50.9) Active confirmed Eating disorder (42807287) Problem Morbid obesity (E66.01) Active confirmed 386005168 Problem BMI 40.0-44.9, adult (Z68.41) Active confirmed Body mass index 40+ - morbidly obese (181702532) Problem Body mass index [BMI] 38.0-38.9, adult (Z68.38) Active confirmed 662262756 Problem Obesity (BMI 35.0-39.9 without comorbidity) (E66.9) Active confirmed 749228865 Problem Adult BMI 37.0-37.9 kg/sq m (Z68.37) Active confirmed 634330740 Problem Body mass index [BMI] 40.0-44.9, adult (Z68.41) Active confirmed 713611336 Problem Bipolar affective disorder, current episode manic, current episode severity unspecified (F31.10) Active confirmed Manic bipolar I disorder (19719029) Encounters Encounter Location Date Provider Diagnosis [place] [address] [address] 01/30/2024 COURTNEY SIMS PLAN OF TREATMENT No Information Insurance Providers Payer Name Payer Address Payer Phone Subscriber Number Group Number Insured Name Patient Relationship to Insured Coverage Start Date Coverage End Date [facility] [address] [place] [address] [id number] Bon Knapp Self - patient is the insured 1 MEDICAL (GENERAL) HISTORY Medical History History ICD Code asthma Surgical History Surgery Date(Month/Year) wisdom teeth extraction 2010
--- OUTSIDE RECORDS SUMMARY | 2024-07-18 06:32 | XMS_ITS | Continuity of Care Document ---
Author Organization [place] - [facility] Former[facility], Allergy Address [address] [address] Assessment Encounter Date Assessment Date Assessment LastModified by Organization Details LastModified Time 06/26/2024 06/26/2024 Visit With: SAL Nugent Use of Antihistamine s: No If yes: Vial Test Change in medications: No If yes ? ? ? Increase in asthma symptoms If yes, inhaler use: Reaction to last injections: No If yes: ? ? ? Allergy Symptoms: Other: ? ? ? Missed: Dose Aware of Vial Test Yes Notes:? ? ? [email or web address] Not available 06/26/2024 17:24:08 Plan of Treatment Reminders Order Date Submit Date Provider Last Modified By Organization Details Last Modified Time Details Appointments [facility]- Allergy f-up 6mon 2024 01:00P M MAGO [...] Organization Details Recorded Time Posterior rhinorrhe a 69213957 Active 2017 Postnasal drip; Note: Date Diagnosed: 05/04/2018 11:24 AM (R09.82) Not Available [facility] 03:23:27 Allergic rhinitis 58505156 Active 2023 Allergic rhinitis: Due to other [...] 4:22 PM (477.8) Note: Gagan Not Available [facility] 4 01:27:26 Peritonsi llar abscess 58803530 Active 2015 Peritonsil lar abscess; Note: Date Diagnosed: 03/14/2016 4:15 PM (J36) Not Available [facility] 4 03:23:27 Nasal congestio n 04329733 Active 2017 Nasal congestion ; Note: Date Diagnosed: 05/04/2018 11:24 AM (R09.81) Not Available [facility] 4 03:23:27 Seasonal allergic rhinitis 425032175 Active 2018 Other seasonal allergic rhinitis; Note: Date Diagnosed: 07/16/2018 10:13 AM (J30.2) Not Available [facility] 03:23:27 Perennial allergic rhinitis 260702570 Active 2023 RACH HIGGINS, RMA [address], [place], [address] , [place] [facility] 16:31:36 Problem Notes None recorded. Procedures Surgical History Date Name Laterality Status Provider Name and Address Organization Details Recorded Time 07/17/19 25 Allergy Immunotherapy Injections completed ELLE CHATMAN RN [address], [place], [address], [place] [facility] 07/17/2024 17:03:31 07/03/19 25 Allergy Immunotherapy Injections completed RACH HIGGINS RMNatasha [address], [place], [address], [place] [facility] 07/03/2024 13:24:50 06/26/19 25 Allergy Immunotherapy Injections completed SAL GALINDO [address], [place], [address], [facility] - [facility] [place] 06/26/2024 17:24:00 06/10/20 24 Allergy Immunotherapy Injections completed RACH HIGGINS RMA [address], [place], [address], [facility] - [facility] 06/10/2024 11:59:19 05/30/20 24 Allergy Immunotherapy Injections completed ELLE CHATMAN RN [address], [place], [address], [facility] - [facility] 05/30/2024 16:26:26 05/14/20 24 Allergy Immunotherapy Injections completed RACH HIGGINS RMA [address], [place], [address], [facility] - [facility] 05/14/2024 15:52:38 05/10/20 24 Allergy Immunotherapy Injections completed SAL GALINDO [address], [place], [address], [place] [facility] 05/10/2024 13:56:20 05/01/20 24 Allergy Immunotherapy Injections completed ELLE CHATMAN RN [address], [place], [address], [place] [facility] 05/01/2024 16:20:08 04/17/20 24 Allergy Immunotherapy Injections completed RACH HIGGINS, RMA [address], [place], [address], [place] [facility] 04/17/2024 16:48:38 04/10/20 24 Allergy Immunotherapy Injections completed ELLE CHATMAN RN [address], [place], [address], [place] [facility] 04/10/2024 16:17:42 04/03/20 24 Allergy Immunotherapy Injections completed SAL GALINDO [address], [place], [address], [place] [facility] 04/03/2024 17:19:19 03/27/20 24 Allergy Immunotherapy Injections completed RACH HIGGINS, RMA [address], [place], [address], [place] [facility] 03/27/2024 17:11:33 03/19/20 24 Allergy Immunotherapy Injections completed RACH HIGGINS, RMA [address], [place], [address], [place] [facility] 03/19/2024 16:18:00 03/12/20 24 Allergy Immunotherapy Injections completed SAL GALINDO [address], [place], [address], [place] [facility] 03/12/2024 16:59:58 03/06/20 24 Allergy Immunotherapy Injections completed SAL GALINDO [address], [place], [address], [place] [facility] 03/06/2024 16:53:38 02/21/20 24 Allergy Immunotherapy Injections completed SAL GALINDO [address], [place], [address], [place] [facility] 02/21/2024 17:06:21 02/16/20 24 Allergy Immunotherapy Injections completed LIZZIE ROSSI RMA [address], [place], [address], [place] [facility] 02/16/2024 11:38:32 02/09/20 24 Allergy Immunotherapy Injections completed RACH HIGGINS, RMA [address], [place], [address], [place] [facility] 02/09/2024 14:15:11 01/31/20 24 Allergy Immunotherapy Injections completed RACH HIGGINS, RMA [address], [place], [address], [place] [facility] 01/31/2024 16:45:20 01/24/20 24 Allergy Immunotherapy Injections completed LIZZIE ROSSI RMA [address], [place], [address], [place] [facility] 01/24/2024 16:54:44 01/09/20 24 Allergy Immunotherapy Injections completed RACH HIGGINS, RMA [address], [place], [address], [place] [facility] 01/09/2024 14:20:54 01/05/20 24 Allergy Immunotherapy Injections completed RACH HIGGINS, RMA [address], [place], [address], [place] [facility] 01/05/2024 09:57:45 12/26/19 24 Allergy Immunotherapy Injections completed TONI GALINDOA [address], [place], [address], [place] [facility] 12/26/2023 15:50:59 12/19/19 24 Allergy Immunotherapy Injections completed ELLE CHATMAN RN [address], [place], [address], [place] [facility] 12/19/2023 16:43:24 12/05/19 24 Allergy Immunotherapy Injections completed LIZZIE ROSSI RMA [address], [place], [address], [place] [facility] 12/05/2023 16:12:33 11/29/19 24 Allergy Immunotherapy Injections completed RACH WILDER, RMA [address] [place],[address] [place] [address], [address], [facility] - [facility] 11/29/2023 17:05:00 11/21/19 24 Allergy Immunotherapy Injections completed RCAH MEÑO, RMA 100 [facility] [place],[address], [address], [facility] - [facility] 11/21/2023 15:51:07 11/20/19 24 Telehealth completed MAGO CAZARES PA-C 100 [facility] [place],[facility] 100, [place], [address], [facility] - [facility] 11/20/2023 09:23:48 11/16/19 24 Allergy Immunotherapy Injections completed LIZZIE ROSSI, [facility] 100 [facility] [place],[address], [address], [facility] - [facility] 11/16/2023 15:52:45 11/08/19 24 Allergy Immunotherapy Injections completed RACH MEÑO, A 100 [facility] [place],[address], [address], [facility] - [facility] 11/08/2023 16:32:04 Imaging Results None recorded. Procedure Notes None recorded. Medical Equipment None Reported. Allergies Allergen ID Allergen Name Allergen Category Reaction Reaction Severity Criticality Documentation Date Start Date Code Code System Note Provider Name and Address Organization Details Recorded Time 007465 amoxicill in medicatio n other Not available Not available 10/31/2023 723 RxNorm React ion: unkno wn, unspe cifie d;; Not Available [facility] 01:26:29 Medications Name Sig Start Date Stop [...] mg tablet 07/02 completed Medicati on ID: [id number] R hoa: () Brand Name: Zoloft S [...] elayed release 2017 active Medicati on ID: [id number] D uration Value: 30 Brand Name: omeprazo le Send Method: E-Prescr ibed Sub s Allowed: subs OK Speci al Instruct ion: TK 1 C PO QD Medic ationGen ericName : omeprazo le Not Available Not Available Not Available [address] 10 mg tablet active Medicati on ID: [id number] B rand Name: monteluk ast Send Method: [...] oral powder 05/09 completed Medicati on ID: [id number] D uration Value: 7 Brand Name: polyethy [...] SNOMED-CT Code Diagnosis ICD10 Code Diagnosis Note [id number] ELLE CHATMAN RN Allergy [address] [place] [address],[facility] 100 [place] [address] 05/30/2024 16:24:19 05/30/2024 16:26:46 Perennial allergic rhinitis [id number] J30.89 [id number] RACH WILDER [facility] All[facility] [address] [place] [address] 100 [place] [address] 06/10/2024 11:58:14 06/10/2024 11:59:43 Perennial allergic rhinitis [id number] J30.89 [id number] LIZZIE ROSSI [facility] Allergy [address] [place] [address] 100 [place] [address] 06/26/2024 17:06:19 06/26/2024 17:28:11 Perennial allergic rhinitis [id number] J30.89 Health Concerns Section Related Observation LastModified by Organization Detai ls LastModified Time None Recorded Concern Status LastModified by Organization Details LastModified Time None Recorded Payers Encounter Date Sequence Insurance Name Policy Number Policy Koenig Covered Member ID Koenig Member ID Guarantor Name 06/26/2024 1 [facility] [id number] Bon Knapp [id number] Bon Knapp
--- OUTSIDE RECORDS SUMMARY | 2024-07-18 06:32 | XMS_ITS | Continuity of Care Document ---
Author Organization [place] - [facility], Allergy Address [address] [place] [address] Assessment Encounter Date Assessment Date Assessment LastModified [...] Organization Details Last Modified Time Details Appointments [facility]- Allergy f-up 6mon 2024 01:00P [...] Organization Details Recorded Time Posterior rhinorrhe a 95352604 Active 2017 Postnasal drip; Note: Date Diagnosed: 05/04/2018 11:24 AM (R09.82) Not Available [facility] 03:23:27 Allergic rhinitis 20621465 Active 2023 Allergic rhinitis: Due to other [...] (477.8) Note: Gagan Not Available [facility] 4 01:27:26 Peritonsi llar abscess 39202895 Active 2015 Peritonsil lar abscess; Note: Date Diagnosed: 03/14/2016 4:15 PM (J36) Not Available [facility] 4 03:23:27 Nasal congestio n 14105779 Active 2017 Nasal congestion ; Note: Date Diagnosed: 05/04/2018 11:24 AM (R09.81) Not Available [facility] 4 03:23:27 Seasonal allergic rhinitis 212206360 Active 2018 Other seasonal allergic rhinitis; Note: Date Diagnosed: 07/16/2018 10:13 AM (J30.2) Not Available [facility] 03:23:27 Perennial allergic rhinitis 779088278 Active 2023 RACH HIGGINS, RMA [address], [place], [address] , [place] [facility] [place] 16:31:36 Problem Notes None recorded. Procedures Surgical History Date Name Laterality Status Provider Name and Address Organization Details Recorded Time 07/17/19 25 Allergy Immunotherapy Injections completed ELLE CHATMAN RN [address] [facility], [place], [address], [place] [facility] [place] 07/17/2024 17:03:31 07/03/19 25 Allergy Immunotherapy Injections completed RACH HIGGINS RMNatasha [address] [place] [address], [address], [place] [facility] [place] 07/03/2024 13:24:50 06/26/19 25 Allergy Immunotherapy Injections completed SAL GALINDO [address] [facility], [place], [address], [facility] - [facility] [place] 06/26/2024 17:24:00 06/10/20 24 Allergy Immunotherapy Injections completed RACH HIGGINS RMNatasha [address] [place] [address], [address], [facility] - [facility] [place] 06/10/2024 11:59:19 05/30/20 24 Allergy Immunotherapy Injections completed ELLE CHATMAN RN [address], [address], [facility] - [facility] [place] 05/30/2024 16:26:26 05/14/20 24 Allergy Immunotherapy Injections completed RACH HIGGINS RMA [address] [place] [address], [address], [facility] - [facility] [place] 05/14/2024 15:52:38 05/10/20 24 Allergy Immunotherapy Injections completed SAL GALINDO [address], [address], [place] [facility] [place] 05/10/2024 13:56:20 05/01/20 24 Allergy Immunotherapy Injections completed ELLE CHATMAN RN [address], [place], [address], [place] [facility] [place] 05/01/2024 16:20:08 04/17/20 24 Allergy Immunotherapy Injections completed RACH HIGGINS, RMA [address], [place], [address], [place] [facility] 04/17/2024 16:48:38 04/10/20 24 Allergy Immunotherapy Injections completed ELLE CHATMAN RN [address], [place], [address], [place] [facility] 04/10/2024 16:17:42 04/03/20 24 Allergy Immunotherapy Injections completed SAL GALINDO [address], [place], [address], [place] [facility] 04/03/2024 17:19:19 03/27/20 24 Allergy Immunotherapy Injections completed RACH HIGGINS, RMA [address], [place], [address], [place] [facility] 03/27/2024 17:11:33 03/19/20 24 Allergy Immunotherapy Injections completed RACH HIGGINS, RMA [address], [place], [address], [place] [facility] [place] 03/19/2024 16:18:00 03/12/20 24 Allergy Immunotherapy Injections completed SAL GALINDO [address], [place], [address], [place] [facility] 03/12/2024 16:59:58 03/06/20 24 Allergy Immunotherapy Injections completed SAL GALINDO [address], [address], [place] [facility] 03/06/2024 16:53:38 02/21/20 24 Allergy Immunotherapy Injections completed SAL GALINDO [address], [place], [address], [place] [facility] 02/21/2024 17:06:21 02/16/20 24 Allergy Immunotherapy Injections completed LIZZIE ROSSI RMA [address], [place], [address], [place] [facility] [place] 02/16/2024 11:38:32 02/09/20 24 Allergy Immunotherapy Injections completed RACH HIGGINS, RMA [address], [place], [address], [place] [facility] 02/09/2024 14:15:11 01/31/20 24 Allergy Immunotherapy Injections completed RACH HIGGINS, RMA [address], [place], [address], [place] [facility] 01/31/2024 16:45:20 01/24/20 24 Allergy Immunotherapy Injections completed TONI GALINDOA [address], [place], [address], [place] [facility] [place] 01/24/2024 16:54:44 01/09/20 24 Allergy Immunotherapy Injections completed RACH HIGGINS, RMA [address], [place], [address], [place] [facility] 01/09/2024 14:20:54 01/05/20 24 Allergy Immunotherapy Injections completed RACH HIGGINS, RMA [address], [address], [place] [facility] 01/05/2024 09:57:45 12/26/19 24 Allergy Immunotherapy Injections completed TONI GALINDOA [address], [place], [address], [place] [facility] 12/26/2023 15:50:59 12/19/19 24 Allergy Immunotherapy Injections completed ELLE CHATMAN RN [address], [address], [place] [facility] 12/19/2023 16:43:24 12/05/19 24 Allergy Immunotherapy Injections completed LIZZIE ROSSI RMA [address], [address], [place] [facility] 12/05/2023 16:12:33 11/29/19 24 Allergy Immunotherapy Injections completed RACH WILDER, RMA 100 [facility] [place],[address], [address], [facility] - [facility] 11/29/2023 17:05:00 11/21/19 24 Allergy Immunotherapy Injections completed [facility]ACH [facility]LY [facility], RMA 100 [facility] [place],[address], [address], [facility] - [facility] 11/21/2023 15:51:07 11/20/19 24 Telehealth completed MAGO CAZARES PA-C 100 [facility] [place] [address], [place], [address], [facility] - [facility] 11/20/2023 09:23:48 11/16/19 24 Allergy Immunotherapy Injections completed LIZZIE ROSSI, [facility] 100 [facility],[address], [address], [facility] - [facility] 11/16/2023 15:52:45 11/08/19 24 Allergy Immunotherapy Injections completed RACH MEÑO, A 100 [facility] [place],[address], [address], [facility] - [facility] 11/08/2023 16:32:04 Imaging Results None recorded. Procedure Notes None recorded. Medical Equipment None Reported. Allergies Allergen ID Allergen Name Allergen Category Reaction Reaction Severity Criticality Documentation Date Start Date Code Code System Note Provider Name and Address Organization Details Recorded Time 678606 amoxicill in medicatio n other Not available Not available 10/31/2023 723 RxNorm React ion: unkno wn, unspe cifie d;; Not Available [facility] 01:26:29 Medications Name Sig Start Date [...] mg tablet 07/02 completed Medicati on ID: [id number] R hoa: () Brand Name: Zoloft S [...] elayed release 2017 active Medicati on ID: [id number] D uration Value: 30 Brand Name: omeprazo le Send Method: E-Prescr ibed Sub s Allowed: subs [place] Speci al Instruct ion: TK 1 C PO QD Medic ationGen ericName : omeprazo le Not Available Not Available Not Available mont[address] 10 mg tablet active Medicati on ID: [id number] B rand Name: monteluk ast Send Method: [...] oral powder 05/09 completed Medicati on ID: [id number] D uration Value: 7 Brand Name: polyethy [...] SNOMED-CT Code Diagnosis ICD10 Code Diagnosis Note [id number] RACH WILDER A Allergy 100 [facility] 100 [place] [address] 06/10/2024 11:58:14 06/10/2024 11:59:43 Perennial allergic rhinitis 150453779 J30.89 [id number] LIZZIE ROSSI [facility] Allergy 100 [facility] 100 [place] [address] 06/26/2024 17:06:19 06/26/2024 17:28:11 Perennial allergic rhinitis 986944651 J30.89 37576 RACH MEÑO [facility] Allergy 100 [facility] 100 [place] [address] 07/03/2024 13:24:02 07/03/2024 13:25:23 Perennial allergic rhinitis 857600180 J30.89 Health Concerns Section Related Observation LastModified by Organization Detai ls LastModified Time None Recorded Concern Status LastModified by Organization Details LastModified Time None Recorded Payers Encounter Date Sequence Insurance Name Policy Number Policy Koenig Covered Member ID Koenig Member ID Guarantor Name 07/03/2024 1 [facility] [id number] Bon Knapp [id number] Bon Knapp
== END 2024-07-18 06:30 | disposition home or self-care (01) ==
LOC: CF 06:29
PROVIDERS: Visit Provider Internal Medicine
DX: M47.814 Spondylosis without myelopathy or radiculopathy, thoracic region (principal); M54.6 Pain in thoracic spine
CPT/HCPCS: 64555; C1778; J2003

== ENCOUNTER 2024-07-18 08:35 | Outpatient (AMB) | payer OTHER, SELFPAY ==
[2024-07-18 08:53] VITALS: BP 119/89; PULSE 84; O2SAT 97; BMI 39.0
--- NOTE | 2024-07-18 08:53 | A.OFFVIS_ITS ---
Vital Signs 07/18/24 08:53 Height 5 ft 9 in Weight 264 lb BMI 39.0 BP 119/89 Blood Pressure Location Lt brachial Position Sitting Pulse 84 Pulse Source Pulse Oximeter Pulse Oximetry (%) 97 Oxygen Delivery Method Room Air Intake Visit Reasons: Left T4 Sprint Application Helper Required: No Allergies Seasonal Allergies Allergy (Intermediate, Verified 07/18/24 08:55) Cough amoxicillin Allergy (Unknown, Verified 07/18/24 08:55) Rash Medication List - Last Reconciled 07/18/24 by Rebecca Reese, [employer] ARCHITECT albuterol sulfate 90 mcg/actuation 2 puffs inhalation Q4-6H PRN 90 days baclofen 10 mg PO TID celecoxib (Celebrex) 100 mg PO BID chlorzoxazone 250 mg PO TID cream base no.105 (bulk) (Base W301 cream) SIG: apply pea-sized amount 3-5 times daily to painful areas as needed ; Diclofenac 5%, Baclofen 5%, Cyclobenzaprine 2%, Gabapentin 6%, Bupivacaine 2%; emtricitabine-tenofovir (TDF) 200-300 mg 1 tab PO DAILY epinephrine 0.3 mg IM Q4H PRN fluticasone propionate 50 mcg/actuation 2 sprays intranasal DAILY fnozowqppbz-udxwefsau-frkugkny 200-62.5-25 mcg (Trelegy Ellipta) 1 inh inhalation DAILY ketoconazole 2% 1 appl topical .QOD PRN lamotrigine (Lamictal) 100 mg PO DAILY montelukast (Singulair) 10 mg PO BEDTIME prednisone 40 mg (2 x 20 mg) PO DAILY quetiapine 50 mg PO BEDTIME HPI HPI Left T4 Sprint: Details: Patient presents for scheduled procedure. Denies any recent cough, cold, infection, fever or other significant changes in medical history since last office visit. [facility] Social History Patient Tobacco Use Status: Never used Tobacco Physical Exam Vital Signs: Last Vital Signs Pulse 84 07/18/24 08:53 BP 119/89 07/18/24 08:53 Pulse Ox 97 07/18/24 08:53 Oxygen Delivery Method Room Air 07/18/24 08:53 BMI result Body Mass Index 39.0 Office Procedures Details: Thoracic Medial Branch Nerve Stimulation Lead Placement, SPR (Sprint) System, Left T5 ? After the risks, benefits and alternatives were discussed with the patient and informed consent was obtained, patient was placed in the prone position and p added to foster comfort. The skin overlying the lumbosacral spine was prepped and draped in sterile fashion. Fluoroscopy was used to identify the spinous process and lamina in the center of the patient?s region of pain. After identifying and marking the intended target along the course of the medial branch nerve, the skin around the planned entry point and the subcutaneous tissues were injected with lidocaine 1%. An introducer needle and stimulating probe were assembled, inserted and advanced along the intended course of the medial branch nerve as it traverses the lamina medial and inferior to the zygapophyseal joint, taking care to maintain the proper depth of insertion as the introducer is advanced under fluoroscopic guidance. The target was chosen based on fluoroscopic correlation of patient's maximal reported pain. The introducer needle was delivered to a location in proximity to the nerve. Multiple stimulation parameters were used to deliver stimulation to the target medial branch nerve in concert with stimulating at multiple positions around the nerve. Nerve target acquisition was confirmed noting generation of paresthesias in the paravertebral regions corresponding to the level being stimulated. Various electrical parameter combinations were tested, and the lead location was adjusted (physically relocated) until the patient indicated paresthesia/muscle tension overlapping the distribution of the patient?s typical region of pain. The stimulating probe was removed from the introducer and a percutaneous lead was guided through the needle and delivered to a location in similar proximity to the nerve. Final location was verified with electrical stimulation and documented with fluoroscopy. The introducer needle was removed, and the exposed end of the percutaneous lead was attached to an external stimulator unit. Various electrical parameter combinations were again tested until the patient indicated paresthesia or muscle tension overlapping the distribution of the patient?s typical region of pain. After confirming that lead impedance was in the normal range, the external unit was detached, the needle was removed, and the lead was anchored at the skin. The lead was threaded into the connector block and electrical continuity and desired patient response was confirmed. The connector block was attached to the external stimulator unit. The site was covered with a sterile occlusive dressing. The patient was observed for stability of vital signs and comfort. Sprint PNS Device: Sprint PNS Device [id number] Percutaneous Peripheral Neuroelectrode Procedure: 71249 - Percutaneous Peripheral Neuroelectrode Procedure code (CPT) selection complete Office Meds lidocaine HCl 10 mg/mL (1 %) injection solution Performing Provider: Edna Taylor APRN, CNP [place] [facility] Administered by: Catherine Ramirez LPN on 07/18/24 09:35 Dose Route Admin Location Dispensed Lot Number Expiration Date NDC Pul[employer] Mill Supervisor 50 mg subcut 5 mL Assessment & Plan Assessment & Plan (1) Thoracic spondylosis: Code(s): M47.814 - Spondylosis without myelopathy or radiculopathy, thoracic region Category: Medical (2) Thoracic back pain: Code(s): M54.6 - Pain in thoracic spine Category: Medical Plan Patient is status post temporary left T5 medial branch nerve stimulator placement. Patient tolerated procedure well and was discharged home in stable condition with discharge instructions. All questions were answered. We will follow-up via telephone or in clinic to assess response to therapy. A follow-up appointment was made during today's visit. Orders: Orders FL guidance in treatment room Today M47.814 - Spondylosis without myelopathy or radiculopathy, thoracic region AMB Sprint PNS Today M47.814 - Spondylosis without myelopathy or radiculopathy, thoracic region Coding Level of Care Code Procedure Only Diagnoses Thoracic spondylosis M47.814 Thoracic back pain M54.6 CPT Codes Sprint PNS - Sprint PNS Device: Sprint PNS Device ([id number]) Sprint PNS - SPRINT: 59838 - Percutaneous Peripheral Neuroelectrode ([id number]) Implantable Device Implantable Device Implantable Devices Qty Pulp Mill Supervisor Implant Date Expiration Date Analgesic PENS system 1 [employer] 07/04/24 03/24/25 Analgesic PENS system 1 [employer] 07/18/24 08/10/25
--- OUTSIDE RECORDS SUMMARY | 2024-07-18 11:21 | XMS_ITS ---
Author Organization [facility] Address [address] [place] [address] Care Team Providers Care Senior Training And Development Rep Name Role Phone COURTNEY SIMS Unavailable [phone] REASON FOR VISIT record request Encounters Encounter Location Date Provider Diagnosis [facility] [address] [facility] [address] [place] [address] 01/30/2024 COURTNEY SIMS PLAN OF TREATMENT No Information Progress Notes * Bon BARTONDOB:[birth year] (33 yo M)Acc No.[id number]:01/30/2024 Patient:??Bon BARTON :1990?Age:33 Y?Sex:Meri castro Address:[address] , [place] [address] * true * Date:??
--- OUTSIDE RECORDS SUMMARY | 2024-07-18 11:21 | XMS_ITS | Clinical Summary ---
Author Organization [facility] Address [address] [place] [address] Phone Care Team Providers Care Web Marketing Analyst Name Role Phone Gonzalez Sparks MD Primary Care Provider [phone] [phone] Allergies Active Allergy Reactions Criticality Noted Date Comments Amoxicillin 04/28/2023 Encounters Date Type Department Care Team Description 06/20/2024 Telephone Gastroenterology [facility] 175 [facility] 175 [facility] [address] [place] [address] Brian Bland DO cancel special [...] age to complete this topic Care Teams Web Marketing Analyst Relationship Specialty Start Date End Date Gonzalez Sparks MD [address] [place], [place] PCP - General 04/19/23
--- OUTSIDE RECORDS SUMMARY | 2024-07-18 11:22 | XMS_ITS | Clinical Summary ---
Author Organization [facility] Address [address] [place] [address] Care Team Providers Care Stumper Feller Name Role Phone Pcp, No Primary Care Provider Unavailabl e Allergies No known active allergies Medications Medication Sig Dispensed Refills Start Date End Date Status lamoTRIgine (LaMICtal) 100 MG tablet Take 1 tablet (100 mg total) by mouth daily. Active QUEtiapine (SEROquel) 50 MG tablet Take 1 tablet (50 mg total) by mouth nightly. Active Norton 3 1000 MG Cap capsule Take 2,150 [...] drink = 0.6 oz pur e alcohol) [facility] [place] of Occupat ional Health - Occupational Stress [...] age to complete this topic Care Teams Stumper Feller Relationship Specialty Start Date End Date Pcp, No [address] [place] [address] PCP - General 11/23/22
--- OUTSIDE RECORDS SUMMARY | 2024-07-18 11:22 | XMS_ITS | Encounter Summary ---
Author Organization [facility] Address [address] [place] [address] Care Team Providers Care Administration Manager Name Role Phone Gonzalez Sparks MD Primary Care Provider [phone] [phone] Reason for Visit * Reason Onset Date Comments cancel special procedure 06/20/2024 Encounter Details Date Type Department Care Team (Late st Contact Info) Description 06/20/2024 Telephone Gastroenterology - [place] [address] [place] [id number] Brian Bland DO [address] [place] [address] cancel special procedure Social History Tobacco Use [...] on filedocumented in this encounter Care Teams Administration Manager Relationship Specialty Start Date End Date Gonzalez Sparks MD [address] [facility] [address] [place], [place] PCP - General 04/19/23 documented as of this encounter
== END 2024-07-18 10:01 | disposition home or self-care (01) ==
LOC: HO.PMCPRC 08:35
PROVIDERS: PCP Family Medicine; Visit Provider Internal Medicine
DX: M47.814 Spondylosis without myelopathy or radiculopathy, thoracic region (principal); M54.6 Pain in thoracic spine
CPT/HCPCS: 64555

== ENCOUNTER 2024-08-23 11:45 | Outpatient (AMB) | payer OTHER, SELFPAY ==
--- NOTE | 2024-08-23 11:49 | A.OFFVIS_ITS ---
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 Patient reports 50-60% ongoing pain relief with improvement in daily functioning, mobility, and sleep. Patient reports positive paresthesia on the left side with stimulation ranging in 50s and on the right side stimulation ranging 60s to 70s. Patient denies any untoward effects of Sprint device therapy. Left T5 Sprint was placed on 07/18/24. The dressings were removed today. Lead insertion sites look clean, dry, intact, no redness or swelling, no pathological discharge. Right lead pulled with tip intact. Lead and surrounding areas were cleansed with Chloraprep and covered with Bacitracin and dressing. Dressing was changed for left side. Denies any recent cough, cold, infection, fever or any significant changes in medical history since last office visit. PRIOR with Edna MANSFIELD 07/12/24: Bon presents back to the office today for follow up, 1 week s/p right T5 Sprint PNS placement He endorses 60% pain relief with improvement in function and mobility. Pain relief was better than 60% but he has started back at the gym which has exacerbated his symptoms Denies any untoward effects off the device Plan for left side placement next week Prior Visit with Dr. Lunsford: s/p therese Dx MBB: Details: 33-year-old male who presents today to the office for status post bilateral diagnostic medial branch block. The patient reports 100% of diagnostic relief following the procedure for two days. He visited [place] last weekend and denies any pain during the stay and traveling. He states that his pain has been returning to baseline this morning. Yesterday his pain was down to 1-3/10 in intensity, which became 7/10 in intensity this morning. He suspects that it might be due to improper sleep position, which aggravated his pain. He sleeps in a prone position but is trying to sleep on his sides. He is doing Yoga at home. He has [employer] insurance. Past procedure 07/04/24: Right T4 Sprint PNS: 60% pain relief after 1 week 03/21/24: Thoracic Medial Branch Block, Bilateral, T5, T6, T7 medial branches: 100% diagnostic relief for two days. [facility] Social History Patient Tobacco Use Status: Never used Tobacco Review of Systems Const All systems reviewed & are unremarkable except as noted in HPI and below Physical Exam Vital Signs: BMI result Body Mass Index 37.5 General: Appears afebrile. Alert and oriented. Mood and affect appropriate. Follows and participates in conversation appropriately. Respiratory effort is unlabored. No cough. Able to transition from sit to stand unassisted. Ambulates with bilaterally normal heel strike and toe off. Lead Insertion Site: Lead insertion sites are clean, dry, intact. No pathological discharge, no swelling and no erythema. Left lead site dressing were changed today in the clinic. Positive paresthesia <50's on the left. Right lead removed with tip intact. Results Reviewed Results Reviewed: 01/25/24: MR SPINE THORACIC WO CON. Assessment & Plan Assessment & Plan (1) Thoracic spondylosis: Code(s): M47.814 - Spondylosis without myelopathy or radiculopathy, thoracic region Category: Medical (2) Thoracic back pain: Code(s): M54.6 - Pain in thoracic spine Category: Medical Plan Patient presents back to the office today right T5 medial branch Sprint nerve stimulator removal. Right T5 lead removed with tip intact. Patient tolerated procedure well. He continues to endorse 50-60% with improvement in functional mobility, ADLs and sleep. Continue with plan for left Sprint PNS therapy. Continue to monitor and adjust stimulation as needed. Left lead site dressing was changed in the office today. All questions and concerns were answered, patient agrees with the plan. Follow- up for Left T5 Sprint removal and sooner if needed Coding Level of Care Code Est Pt Level 3 (50224) Complex EM visit Add On G2211 Diagnoses Thoracic spondylosis M47.814 Thoracic back pain M54.6
[2024-08-23 11:52] VITALS: BMI 37.5
--- OUTSIDE RECORDS SUMMARY | 2024-08-23 13:39 | XMS_ITS | Clinical Summary ---
Author Organization [facility] Address [address] [place] [address] Phone Care Team Providers Care Block Sealer Name Role Phone Gonzalez Sparks MD Primary Care Provider [phone] [phone] Allergies Active Allergy Reactions Criticality Noted Date Comments Amoxicillin 04/28/2023 Encounters Date Type Department Care Team Description 06/20/2024 Telephone Gastroenterology [facility] 175 [facility] 175 [facility] [address] [place] [address] Brian Bland DO cancel special procedure from Last 3 Months Social History Tobacco Use Types Packs/Day Years Used Date Smoking Tobacco: Never Smokeless Tobacco: Never Sex and Gender Information Value Date Recorded Sex Assigned at Not on file Legal Sex Male 1:01 PM EST Gender Identity Not on file Sexual Orientation [...] patient's age to complete this topic Meningococcal B Vacine Aged Out No lo nger eligible based on patient's age to complete [...] on patient's age to complete this topic [place] [place] [address] OLIVIA RIOS [id number] Care Teams Block Sealer Relationship Specialty Start Date End Date Gonzalez Sparks MD [facility] Ayazsage Mariela [address] PCP - General 04/19/23
--- OUTSIDE RECORDS SUMMARY | 2024-08-23 13:39 | XMS_ITS | Continuity of Care Document ---
Author Organization [place] - [facility], Allergy Address [address] [place] [address] Assessment Encounter Date Assessment Date Assessment LastModified by Organization Details LastModified Time 08/07/2024 08/07/2024 Visit With: Cary Gonzales Use of Antihistamine s: No If yes: Vial Test Change in medications: No If yes ? ? ? Increase in asthma symptoms If yes, inhaler use: Reaction to last injections: No If yes: ? ? ? Allergy Symptoms: Other: ? ? ? Missed: Bi-weekly 1 visit Dose Repeated Aware of Vial Test Notes:? ? ? [email or web address] Not available 08/07/2024 16:53:20 Plan of Treatment Reminders Order Date Submit Date Provider Last Modified By Organization Details Last Modified Time Details Appointments Allergy Shot 2024 01:35P M [facility] Not available Not available Not available Sandro hed- Allergy f-up 6mon 2024 01:00P M MAGO [...] Organization Details Recorded Time Posterior rhinorrhe a 48702679 Active 2017 Postnasal drip; Note: Date Diagnosed: 05/04/2018 11:24 AM (R09.82) Not Available [facility] 03:23:27 Allergic rhinitis 54845414 Active 2023 Allergic rhinitis: Due to other [...] 4:22 PM (477.8) Note: Gagan Not Available [facility] 4 01:27:26 Peritonsi llar abscess 48300970 Active 2015 Peritonsil lar abscess; Note: Date Diagnosed: 03/14/2016 4:15 PM (J36) Not Available [facility] 4 03:23:27 Nasal congestio n 80646209 Active 2017 Nasal congestion ; Note: Date Diagnosed: 05/04/2018 11:24 AM (R09.81) Not Available [facility] 4 03:23:27 Seasonal allergic rhinitis 890489004 Active 2018 Other seasonal allergic rhinitis; Note: Date Diagnosed: 07/16/2018 10:13 AM (J30.2) Not Available [facility] 4 03:23:27 Perennial allergic rhinitis 533746349 Active 2023 RACH HIGGINS, RMA [address], [address] , [facility] - [facility] 4 16:31:36 Problem Notes None recorded. Procedures Surgical History Date Name Laterality Status Provider Name and Address Organization Details Recorded Time 08/07/19 25 Allergy Immunotherapy Injections completed TONI GALINDOA [address], [place], [address], [facility] - [facility] 08/07/2024 16:52:59 07/17/19 25 Allergy Immunotherapy Injections completed ELLE CHATMAN RN [address] [place] [address], [phone], [facility] - [facility] 07/17/2024 17:03:31 07/03/19 25 Allergy Immunotherapy Injections completed RACH HIGGINS RMA [address] [place] [address], [phone], [facility] - [facility] 07/03/2024 13:24:50 06/26/19 25 Allergy Immunotherapy Injections completed CARY GONZALES RMA [address] [place] [address], [phone], [facility] - [facility] 06/26/2024 17:24:00 06/10/20 24 Allergy Immunotherapy Injections completed RACH HIGGINS RMA [address], [place], [address], [facility] - [facility] 06/10/2024 11:59:19 05/30/20 24 Allergy Immunotherapy Injections completed ELLE CHATMAN RN [address], [place], [address], [facility] - [facility] 05/30/2024 16:26:26 05/14/20 24 Allergy Immunotherapy Injections completed RACH HIGGINS RMA [address], [place], [address], [place] [facility] 05/14/2024 15:52:38 05/10/20 24 Allergy Immunotherapy Injections completed SAL GALINDO [address] [place] [address], [phone], [place] [facility] 05/10/2024 13:56:20 05/01/20 24 Allergy Immunotherapy Injections completed ELLE CHATMAN RN [address] [place] [address], [address], [place] [facility] 05/01/2024 16:20:08 04/17/20 24 Allergy Immunotherapy Injections completed SAL NAVARRO [address] [place] [place] [place] [address], [address], [place] [facility] 04/17/2024 16:48:38 04/10/20 24 Allergy Immunotherapy Injections completed ELLE CHATMAN RN [address] [facility],[address], [address], [place] [facility] 04/10/2024 16:17:42 04/03/20 24 Allergy Immunotherapy Injections completed SAL GALINDO [address] [place] [place] [address], [address], [place] [facility] 04/03/2024 17:19:19 03/27/20 24 Allergy Immunotherapy Injections completed RACH HIGGINS RMA [address] [place] [place],[address] [place] [address], [address], [place] [facility] 03/27/2024 17:11:33 03/19/20 24 Allergy Immunotherapy Injections completed SAL NAVARRO [address] [place] [address], [address], [place] [facility] 03/19/2024 16:18:00 03/12/20 24 Allergy Immunotherapy Injections completed SAL GALINDO [address] [place], [place], [address], [place] [facility] 03/12/2024 16:59:58 03/06/20 24 Allergy Immunotherapy Injections completed CARY FLO, RMA [address], [place], [address], [place] [facility] 03/06/2024 16:53:38 02/21/20 24 Allergy Immunotherapy Injections completed TONI GALINDOA [address], [place], [address], [place] [facility] 02/21/2024 17:06:21 02/16/20 24 Allergy Immunotherapy Injections completed TONI GALINDOA [address], [place], [address], [place] [facility] 02/16/2024 11:38:32 02/09/20 24 Allergy Immunotherapy Injections completed RACH HIGGINS RMA [address], [place], [address], [place] [facility] 02/09/2024 14:15:11 01/31/20 24 Allergy Immunotherapy Injections completed RACH HIGGINS RMA [address], [place], [address], [place] [facility] 01/31/2024 16:45:20 01/24/20 24 Allergy Immunotherapy Injections completed TONI GALINDOA [address], [place], [address], [facility] - [facility] 01/24/2024 16:54:44 01/09/20 24 Allergy Immunotherapy Injections completed RACH HIGGINS RMA [address], [place], [address], [facility] - [facility] 01/09/2024 14:20:54 01/05/20 24 Allergy Immunotherapy Injections completed RACH HIGGINS RMA [address], [place], [address], [place] [facility] 01/05/2024 09:57:45 12/26/19 24 Allergy Immunotherapy Injections completed TONI GALINDOA [address], [place], [address], [place] [facility] 12/26/2023 15:50:59 12/19/19 24 Allergy Immunotherapy Injections completed ELLE CHATMAN RN [address] [place] [place],[address] [place] [address], [address], [facility] - [facility] 12/19/2023 16:43:24 12/05/19 24 Allergy Immunotherapy Injections completed SAL GALINDO [address] [place] [address], [address], [facility] - [facility] 12/05/2023 16:12:33 11/29/19 24 Allergy Immunotherapy Injections completed RACH HIGGINS, [facility] [address] [place] [address], [address], [facility] - [facility] 11/29/2023 17:05:00 11/21/19 24 Allergy Immunotherapy Injections completed RACH HIGGINS, [facility] [address] [place],[address] [place] [address], [address], [facility] - [facility] 11/21/2023 15:51:07 11/20/19 24 Telehealth completed MAGO CAZARES PA-C [address], [address], [facility] - [facility] 11/20/2023 09:23:48 11/16/19 24 Allergy Immunotherapy Injections completed CARY GONZALES [facility] [address] [place],[address], [address], [facility] - [facility] 11/16/2023 15:52:45 11/08/19 24 Allergy Immunotherapy Injections completed RACH HARRISONPACHECO, [facility] [address] [place],[address], [address], [facility] - [facility] 11/08/2023 16:32:04 Imaging Results None recorded. Procedure Notes None recorded. Medical Equipment None Reported. Allergies Allergen ID Allergen Name Allergen Category Reaction Reaction Severity Criticality Documentation Date Start Date Code Code System Note Provider Name and Address Organization Details Recorded Time 143642 amoxicill in medicatio n other Not available Not available 10/31/2023 723 RxNorm React ion: unkno wn, unspe cifie d;; Not Available [facility] 01:26:29 Medications Name Sig Start Date Stop [...] mg tablet 07/02 completed Medicati on ID: 263195 R hoa: () Brand Name: Zoloft S [...] elayed release 2017 active Medicati on ID: [id number] D uration Value: 30 Brand Name: omeprazo le Send Method: E-Prescr ibed Sub s Allowed: subs OK Speci al Instruct ion: TK 1 C PO QD Medic ationGen ericName : omeprazo le Not Available Not Available Not Available [address] 10 mg tablet active Medicati on ID: [id number] B rand Name: monteluk ast Send Method: [...] oral powder 05/09 completed Medicati on ID: 303127 D uration Value: 7 Brand Name: polyethy [...] SNOMED-CT Code Diagnosis ICD10 Code Diagnosis Note 00359 ELLE CHATMAN RN Allergy [address] [place] [address] [address] [place] [address] 07/17/2024 16:56:23 07/17/2024 17:03:56 Perennial allergic rhinitis 828296639 J30.89 87677 SAL GALINDO Allergy [address] [place] [address] [address] [place] [address] 08/07/2024 16:44:26 08/07/2024 17:00:12 Perennial allergic rhinitis 832468661 J30.89 Health Concerns Section Related Observation LastModified by Organization Detai ls LastModified Time None Recorded Concern Status LastModified by Organization Details LastModified Time None Recorded Payers Encounter Date Sequence Insurance Name Policy Number Policy Koenig Covered Member ID Koenig Member ID Guarantor Name 08/07/2024 1 [facility] ([facility] [id number] Bon Knapp [id number] oBn Knapp
--- OUTSIDE RECORDS SUMMARY | 2024-08-23 13:39 | XMS_ITS ---
Author Organization [facility] [employer] [facility] Address [address] [place] [address] Care Team Providers Care Boat Dock Operator Name Role Phone COURTNEY SIMS Unavailable [phone] REASON FOR VISIT record request Encounters Encounter Location Date Provider Diagnosis [facility] [address] [facility] [address] [place] [address] 01/30/2024 COURTNEY SIMS PLAN OF TREATMENT No Information Progress Notes * Bon BARTONDOB:[birth year] (33 yo M)Acc No.[id number]:01/30/2024 Patient:??Bon BARTON :1990?Age:33 Y?Sex:Meri castro Address:[address] , [place] [address] * true * Date:??
--- OUTSIDE RECORDS SUMMARY | 2024-08-23 13:39 | XMS_ITS | Patient Health Record ---
Author Organization [facility] Address [address] [place] [address] Care Team Providers Care Pulpwood Buyer Name Role Phone COURTNEY SIMS Unavailable [phone] ALLERGIES Allergen (clinical drug ingredient) Drug/Non Drug [...] due to excess calories (E66.09) Active confirmed 624378031 Problem Other obesity (E66.8) Active confirmed Obesity (711211480) Problem Eating disorder, unspecified (F50.9) Active confirmed Eating disorder (12405276) Problem Morbid obesity (E66.01) Active confirmed 142109222 Problem BMI 40.0-44.9, adult (Z68.41) Active confirmed Body mass index 40+ - morbidly obese (968882591) Problem Body mass index [BMI] 38.0-38.9, adult (Z68.38) Active confirmed 571493900 Problem Obesity (BMI 35.0-39.9 without comorbidity) (E66.9) Active confirmed 240586698 Problem Adult BMI 37.0-37.9 kg/sq m (Z68.37) Active confirmed 516032855 Problem Body mass index [BMI] 40.0-44.9, adult (Z68.41) Active confirmed 200397461 Problem Bipolar affective disorder, current episode manic, current episode severity unspecified (F31.10) Active confirmed Manic bipolar I disorder (52852462) Encounters Encounter Location Date Provider Diagnosis [place] [address] [address] 01/30/2024 COURTNEY SIMS PLAN OF TREATMENT No Information Insurance Providers Payer Name Payer Address Payer Phone Subscriber Number Group Number Insured Name Patient Relationship to Insured Coverage Start Date Coverage End Date [facility] [address] [place] [address] [id number] Bon Knapp Self - patient is the insured 1 MEDICAL (GENERAL) HISTORY Medical History History ICD Code asthma Surgical History Surgery Date(Month/Year) wisdom teeth extraction 2010
--- OUTSIDE RECORDS SUMMARY | 2024-08-23 13:40 | XMS_ITS | Clinical Summary ---
Author Organization [facility] Address [address] [place] [address] Care Team Providers Care Mid Level Net Developer Name Role Phone Pcp, No Primary Care Provider Unavailabl e Allergies No known active allergies Medications Medication Sig Dispensed Refills Start Date End Date Status lamoTRIgine (LaMICtal) 100 MG tablet Take 1 tablet (100 mg total) by mouth daily. Active QUEtiapine (SEROquel) 50 MG tablet Take 1 tablet (50 mg total) by mouth nightly. Active [place] 3 1000 MG Cap capsule Take 2,150 [...] drink = 0.6 oz pur e alcohol) [facility] - Occupational Stress [...] age to complete this topic Care Teams Mid Level Net Developer Relationship Specialty Start Date End Date Pcp, No [address] [place] [address] PCP - General 11/23/22
--- OUTSIDE RECORDS SUMMARY | 2024-08-23 13:40 | XMS_ITS | Data Portability ---
Author Organization [place] - [facility], Allergy Address [address] [place] [id number] Assessment Encounter Date Assessment Date Assessment LastModified by Organization Details LastModified Time 06/10/2024 06/10/2024 Visit With: SAL Nugent Use of Antihistamine s: Yes If yes: Vial Test Change in medications: No If yes ? ? ? Increase in asthma symptoms If yes, inhaler use: Reaction to last injections: No If yes: ? ? ? Allergy Symptoms: Other: ? ? ? Missed: Dose Aware of Vial Test Notes:? ? ? [email or web address] Not available 06/10/2024 11:59:25 06/26/2024 06/26/2024 Visit With: SAL Nugent Use of Antihistamine s: No If yes: Vial Test Change in medications: No If yes ? ? ? Increase in asthma symptoms If yes, inhaler use: Reaction to last injections: No If yes: ? ? ? Allergy Symptoms: Other: ? ? ? Missed: Dose Aware of Vial Test Yes Notes:? ? ? [email or web address] Not available 06/26/2024 17:24:08 07/03/2024 07/03/2024 Visit [...] 07/03/2024 13:24:59 07/17/2024 07/17/2024 Visit With: SAL Nugent Use of Antihistamine s: No If yes: Vial Test Change in medications: No If yes ? ? ? Increase in asthma symptoms No If yes, inhaler use: Reaction to last injections: No If yes: ? ? ? Allergy Symptoms: Other: ? ? ? Missed: Dose Aware of Vial Test Notes:? ? ? [email or web address] Not available 07/17/2024 17:03:42 08/07/2024 08/07/2024 Visit With: Cary Gonzales Use of Antihistamine s: No If yes: Vial Test Change in medications: No If yes ? ? ? Increase in asthma symptoms If yes, inhaler use: Reaction to last injections: No If yes: ? ? ? Allergy Symptoms: Other: ? ? ? Missed: Bi-weekly 1 visit Dose Repeated Aware of Vial Test Notes:? ? ? Not available 08/07/2024 16:53:20 Plan of Treatment Reminders Order Date Submit Date Provider Last Modified By Organization Details Last Modified Time Details Appointments Allergy Shot 2024 01:35P M [facility] Not available Not available Not available [facility] f-up 6mon 2024 01:00P M [...] Organization Details Recorded Time Posterior rhinorrhe a 12671331 Active 2017 Postnasal drip; Note: Date Diagnosed: 05/04/2018 11:24 AM (R09.82) Not Available [facility] 03:23:27 Allergic rhinitis 93649775 Active 2023 Allergic rhinitis: Due to other [...] 4:22 PM (477.8) Note: Gagan Not Available [facility] 4 01:27:26 Peritonsi llar abscess 77653922 Active 2015 Peritonsil lar abscess; Note: Date Diagnosed: 03/14/2016 4:15 PM (J36) Not Available [facility] 4 03:23:27 Nasal congestio n 79426072 Active 2017 Nasal congestion ; Note: Date Diagnosed: 05/04/2018 11:24 AM (R09.81) Not Available [facility] 4 03:23:27 Seasonal allergic rhinitis 415627735 Active 2018 Other seasonal allergic rhinitis; Note: Date Diagnosed: 07/16/2018 10:13 AM (J30.2) Not Available [facility] 4 03:23:27 Perennial allergic rhinitis 000495936 Active 2023 RACH KORZEC, RMA [address], [place], [address] , [place] [facility] 16:31:36 Problem Notes None recorded. Procedures Surgical History Date Name Laterality Status Provider Name and Address Organization Details Recorded Time 08/07/19 25 Allergy Immunotherapy Injections completed TONI GALINDOA [address], [place], [address], [place] [facility] 08/07/2024 16:52:59 07/17/19 25 Allergy Immunotherapy Injections completed ELLE CHATMAN RN [address], [place], [address], [place] [facility] 07/17/2024 17:03:31 07/03/19 25 Allergy Immunotherapy Injections completed RACH HIGGINS RMA [address], [place], [address], [place] [facility] 07/03/2024 13:24:50 06/26/19 25 Allergy Immunotherapy Injections completed SAL GALINDO [address], [place], [address], [place] [facility] 06/26/2024 17:24:00 06/10/20 24 Allergy Immunotherapy Injections completed RACH HIGGINS RMA [address], [place], [address], [place] [facility] 06/10/2024 11:59:19 05/30/20 24 Allergy Immunotherapy Injections completed ELLE CHATMAN RN [address], [place], [address], [place] [facility] 05/30/2024 16:26:26 05/14/20 24 Allergy Immunotherapy Injections completed RACH HIGGINS RMA [address], [place], [address], [place] [facility] 05/14/2024 15:52:38 05/10/20 24 Allergy Immunotherapy Injections completed SAL GALINDO [address], [place], [address], [place] [facility] 05/10/2024 13:56:20 05/01/20 24 Allergy Immunotherapy Injections completed ELLE CHATMAN RN [address], [place], [address], [place] [facility] 05/01/2024 16:20:08 04/17/20 24 Allergy Immunotherapy Injections completed RACH HIGGINS, RMA [address], [place], [address], [place] [facility] 04/17/2024 16:48:38 04/10/20 24 Allergy Immunotherapy Injections completed ELLE CHATMAN RN [address], [place], [address], [place] [facility] 04/10/2024 16:17:42 04/03/20 24 Allergy Immunotherapy Injections completed SAL GALINDO [address], [place], [address], [place] [facility] 04/03/2024 17:19:19 03/27/20 24 Allergy Immunotherapy Injections completed RACH HIGGINS, RMA [address], [place], [address], [place] [facility] 03/27/2024 17:11:33 03/19/20 24 Allergy Immunotherapy Injections completed RACH HIGGINS, RMA [address], [place], [address], [place] [facility] 03/19/2024 16:18:00 03/12/20 24 Allergy Immunotherapy Injections completed SAL GALINDO [address], [place], [address], [place] [facility] 03/12/2024 16:59:58 03/06/20 24 Allergy Immunotherapy Injections completed SAL GALINDO [address], [place], [address], [place] [facility] 03/06/2024 16:53:38 02/21/20 24 Allergy Immunotherapy Injections completed ASL GALINDO [address], [place], [address], [place] [facility] 02/21/2024 17:06:21 02/16/20 24 Allergy Immunotherapy Injections completed TONI GALINDOA [address], [place], [address], [place] [facility] 02/16/2024 11:38:32 02/09/20 24 Allergy Immunotherapy Injections completed RACH HIGGINS, RMA [address], [place], [address], [place] [facility] 02/09/2024 14:15:11 01/31/20 24 Allergy Immunotherapy Injections completed RACH HIGGINS, RMA [address], [place], [address], [place] [facility] 01/31/2024 16:45:20 01/24/20 24 Allergy Immunotherapy Injections completed TONI GALINDOA [address] [place] [address], [address], [place] [facility] 01/24/2024 16:54:44 01/09/20 24 Allergy Immunotherapy Injections completed RACH HIGGINS, RMA [address], [place], [address], [place] [facility] 01/09/2024 14:20:54 01/05/20 24 Allergy Immunotherapy Injections completed RACH HIGGINS, RMA [address], [place], [address], [place] [facility] 01/05/2024 09:57:45 12/26/19 24 Allergy Immunotherapy Injections completed SAL GALINDO [address], [place], [address], [place] [facility] 12/26/2023 15:50:59 12/19/19 24 Allergy Immunotherapy Injections completed ELLE CHATMAN RN [address], [place], [address], [place] [facility] 12/19/2023 16:43:24 12/05/19 24 Allergy Immunotherapy Injections completed TONI GALINDOA [address], [place], [address], [facility] - [facility] 12/05/2023 16:12:33 11/29/19 24 Allergy Immunotherapy Injections completed RACH HIGGINS, RMA [facility],[address], [address], [facility] - [facility] 11/29/2023 17:05:00 11/21/19 24 Allergy Immunotherapy Injections completed RACH MEÑO, RMA 100 [facility],[address], [address], [facility] - [facility] 11/21/2023 15:51:07 11/20/19 24 Telehealth completed MAGO CAZARES PA-C [address] [facility],[address], [address], [facility] - [facility] 11/20/2023 09:23:48 11/16/19 24 Allergy Immunotherapy Injections completed CARY GONZALES, [facility] 100 [facility],[address], [address], [facility] - [facility] 11/16/2023 15:52:45 11/08/19 24 Allergy Immunotherapy Injections completed RACH MEÑO, [facility] 100 [facility],[address], [address], [facility] - [facility] 11/08/2023 16:32:04 Imaging Results None recorded. Procedure Notes None recorded. Medical Equipment None Reported. Allergies Allergen ID Allergen Name Allergen Category Reaction Reaction Severity Criticality Documentation Date Start Date Code Code System Note Provider Name and Address Organization Details Recorded Time 357099 amoxicill in medicatio n other Not available Not available 10/31/2023 723 RxNorm React ion: unkno wn, unspe cifie d;; Not Available [facility] 01:26:29 Medications Name Sig Start Date [...] mg tablet 07/02 completed Medicati on ID: 056107 R hoa: () Brand Name: Zoloft S [...] elayed release 2017 active Medicati on ID: 890303 D uration Value: 30 Brand Name: omeprazo le Send Method: E-Prescr ibed Sub s Allowed: subs OK Speci al Instruct ion: TK 1 C PO QD Medic ationGen ericName : omeprazo le Not Available Not Available Not Available [address] 10 mg tablet active Medicati on ID: [id number] B rand Name: monteluk ast Send Method: [...] oral powder 05/09 completed Medicati on ID: 776159 D uration Value: 7 Brand Name: polyethy [...] Diagnosis Note 1220 ADRIANE MUNGUIA MD Allergy [address] [place] [address] 11/08/2023 16:25:39 11/08/2023 16:41:51 Perennial allergic rhinitis [id number] J30.89 2141 CARY GONZALES [facility] Allergy [address] [place] [address] 11/16/2023 15:49:56 11/16/2023 16:13:57 Perennial allergic rhinitis 447725609 J30.89 2370 ADRIANE MUNGUIA MD [facility] [address] [address] 11/20/2023 09:08:47 11/20/2023 12:24:36 Allergic rhinitis 43518653 J30.89 3755 RACH WILDER [address] [place] [address] 11/21/2023 15:42:39 11/21/2023 15:56:49 Perennial allergic rhinitis 521113246 J30.89 6337 RACH HIGGINS [facility] Allergy [address] [place] [address] [place] [address] 11/29/2023 17:03:35 11/29/2023 17:30:37 Perennial allergic rhinitis [id number] J30.89 4601 CARY GONZALES [facility] Allergy [address] [place], [place] [address] [place] [address] 12/05/2023 15:42:32 12/05/2023 16:15:18 Perennial allergic rhinitis 115584016 J30.89 6404 ELLE CHATMAN sheeting puller [address] [place] [address] [address] [place] [address] 12/19/2023 16:32:38 12/19/2023 16:44:57 Perennial allergic rhinitis [id number] J30.89 7147 CARY GONZALES [facility] Allergy [address] [place] [address] [address] [facility] [place] [address] 12/26/2023 15:43:58 12/27/2023 11:12:10 Perennial allergic rhinitis [id number] J30.89 8622 [facility] Allergy [address] [place] [address] [address] [place] [address] 01/05/2024 09:25:36 01/15/2024 11:18:45 Perennial allergic rhinitis 863026774 J30.89 9128 [facility] Allergy [address] [place] [address] [address] [place] [address] 01/09/2024 14:14:43 01/09/2024 14:30:56 Perennial allergic rhinitis [id number] J30.89 75149 CARY GONZALES [facility] Allergy [address] [place] [address] [address] [place] [address] 01/24/2024 16:44:18 01/25/2024 11:44:33 Perennial allergic rhinitis [id number] J30.89 88095 [facility] All[facility] [address] [place] [address] [address] [place] [address] 01/31/2024 16:43:53 01/31/2024 16:47:47 Perennial allergic rhinitis [id number] J30.89 51495 [facility] Allergy [address] [place] [address] [address] [place] [address] 02/09/2024 14:14:10 02/09/2024 14:21:50 Perennial allergic rhinitis [id number] J30.89 [id number] CARY GONZALES, [facility] Allergy 100 [facility],[address] [place] [address] 02/16/2024 11:37:33 02/16/2024 11:41:23 Perennial allergic rhinitis [id number] J30.89 57574 CARY GONZALES [facility] Allergy [address] [place] [address],[address] [place] [address] 02/21/2024 17:03:57 02/21/2024 17:18:03 Perennial allergic rhinitis [id number] J30.89 [id number] CARY GONZALES [facility] Allergy [address] [place] [address],[address] [place] [address] 03/06/2024 16:52:37 03/06/2024 17:15:08 Perennial allergic rhinitis [id number] J30.89 [id number] CARY GONZALES [facility] Allergy [address] [place] [address],[address] [place] [address] 03/12/2024 16:58:15 03/25/2024 18:03:35 Perennial allergic rhinitis [id number] J30.89 50032 [facility] Allergy [address] [place] [address],[address] [place] [address] 03/19/2024 16:16:58 03/19/2024 16:18:41 Perennial allergic rhinitis 283166849 J30.89 75788 [facility] Allergy [address] [place] [address],[address] [place] [address] 03/27/2024 17:10:52 03/27/2024 17:12:05 Perennial allergic rhinitis [id number] J30.89 [id number] CARY FLO [facility] Allergy [address] [place] [address],[address] [place] [address] 04/03/2024 16:53:01 04/03/2024 17:21:14 Perennial allergic rhinitis [id number] J30.89 26192 ELLE CHATMAN RN Allergy [address] [place] [address],[address] [place] [address] 04/10/2024 16:16:30 04/10/2024 16:18:14 Perennial allergic rhinitis [id number] J30.89 62739 RACH MEÑO, A Allergy [address] [place] [address],[address] [place] [address] 04/17/2024 16:47:18 04/17/2024 16:49:05 Perennial allergic rhinitis [id number] J30.89 [id number] ELLE CHATMAN RN Allergy [address] [place] [address], [address] [place] [address] 05/01/2024 16:19:15 05/01/2024 16:20:47 Perennial allergic rhinitis [id number] J30.89 70785 CARY GONZALES, [facility] Allergy [address] [place] [address], [address] [place] [address] 05/10/2024 13:55:19 05/10/2024 13:56:55 Perennial allergic rhinitis [id number] J30.89 [id number] [facility] Allergy [address] [place] [address], [address] [place] [address] 05/14/2024 15:51:59 05/14/2024 15:53:12 Perennial allergic rhinitis [id number] J30.89 11538 ELLE CHATMAN RN Allergy [address] [place] [address], [address] [place] [address] 05/30/2024 16:24:19 05/30/2024 16:26:46 Perennial allergic rhinitis [id number] J30.89 20551 [facility] All[facility] [address] [place] [address],[address] [place] [address] 06/10/2024 11:58:14 06/10/2024 11:59:43 Perennial allergic rhinitis [id number] J30.89 14145 CARY GONZALES, [facility] Allergy [address] [place] [address],[address] [place] [address] 06/26/2024 17:06:19 06/26/2024 17:28:11 Perennial allergic rhinitis [id number] J30.89 23955 [facility] Allergy [address] [place] [address],[address] [place] [address] 07/03/2024 13:24:02 07/03/2024 13:25:23 Perennial allergic rhinitis [id number] J30.89 [id number] ELLE CHATMAN RN Allergy 100 [facility], [address] [place] [address] 07/17/2024 16:56:23 07/17/2024 17:03:56 Perennial allergic rhinitis [id number] J30.89 [id number] SAL GALINDO Allergy 100 [facility], [address] [place] [address] 08/07/2024 16:44:26 08/07/2024 17:00:12 Perennial allergic rhinitis [id number] J30.89 Health Concerns Section Related Observation LastModified by Organization Detai ls LastModified Time None Recorded Concern Status LastModified by Organization Details LastModified Time None Recorded Advance Directives Directive None Recorded Payers Encounter Date Sequence Insurance Name Policy Number Policy Koenig Covered Member ID Koenig Member ID Guarantor Name 06/10/2024 1 [facility]) [id number] Bon Ra [id number] Bon Ra 06/26/2024 1 [facility]) [id number] Bon Ra [id number] Bon Ra 07/03/2024 1 [facility]) [id number] Bon Ra [id number] Bon Ra 07/17/2024 1 [facility]) [id number] Bon Ra [id number] Bon Ra 08/07/2024 1 [facility]) [id number] Bon Ra [id number] Bon Ra
== END 2024-08-23 12:02 | disposition home or self-care (01) ==
PROVIDERS: PCP Family Medicine; Visit Provider Nurse Practitioner Family
DX: M47.814 Spondylosis without myelopathy or radiculopathy, thoracic region (principal); M54.6 Pain in thoracic spine
CPT/HCPCS: 99213

== ENCOUNTER → 2024-08-23 11:45 | Outpatient (BNVA) | payer OTHER, SELFPAY | PROVIDERS: PCP Family Medicine; Visit Provider Nurse Practitioner Family ==

== ENCOUNTER 2024-09-06 12:52 | Outpatient (AMB) | payer OTHER, SELFPAY ==
--- NOTE | 2024-09-06 13:03 | MHC.OFFVIS ---
Vital Signs 09/06/24 13:04 Height 5 ft 9 in Weight 255 lb BMI 37.7 BP 134/78 Blood Pressure Location Rt brachial Pulse 79 Pulse Source Pulse Oximeter Pulse Oximetry (%) 97 Oxygen Delivery Method Room Air Intake Visit Reasons: Asthma Senior Vice President & General Counsel Required: No Special Services Coordinator: Special Services Coordinator offered & declined Accompanied by: Self / Same As Patient Allergies Seasonal Allergies Allergy (Intermediate, Verified 09/06/24 13:07) Cough amoxicillin Allergy (Unknown, Verified 09/06/24 13:07) Rash Medication List - Last Reconciled 09/06/24 by Mary Hernandez LPN albuterol sulfate 90 mcg/actuation 2 puffs inhalation Q4-6H PRN 90 days baclofen 10 mg PO TID celecoxib (Celebrex) 100 mg PO BID chlorzoxazone 250 mg PO TID cream base no.105 (bulk) (Base W301 cream) SIG: apply pea-sized amount 3-5 times daily to painful areas as needed ; Diclofenac 5%, Baclofen 5%, Cyclobenzaprine 2%, Gabapentin 6%, Bupivacaine 2%; emtricitabine-tenofovir (TDF) 200-300 mg 1 tab PO DAILY epinephrine 0.3 mg IM Q4H PRN fluticasone propionate 50 mcg/actuation 2 sprays intranasal DAILY pmuavaosbkw-fwbgtkkpz-wlsvcrpc 200-62.5-25 mcg (Trelegy Ellipta) 1 inh inhalation DAILY ibuprofen mg PO 3XD ketoconazole 2% 1 appl topical .QOD PRN lamotrigine (Lamictal) 100 mg PO DAILY montelukast (Singulair) 10 mg PO BEDTIME omeprazole mg PO DAILY quetiapine 50 mg PO BEDTIME tirzepatide (weight loss) (Zepbound) mg subcut HPI HPI Asthma: Details: Bon is a very pleasant 34 year old male, never tobacco smoker, with underlying asthma since childhood. At last visit, he was switched from Breo to Trelegy with significant improvements in addition to Singulair and albuterol MDI. Previously he reported inability to inspire fully when exercising and develops associated pleuritic discomfort which has become less prevalent. Prior imaging unremarkable. He continues to undergo allergen immunotherapy with good effect through ENT. He denies any visits to urgent care or hospitalizations related to respiratory distress since the last visit. [facility] Social History Patient Tobacco Use Status: Never used Tobacco Review of Systems Const Denies chills, Denies excessive sweating, Denies fever(s), Denies headache(s) and Denies night sweats Eyes Denies dry eyes and Denies irritation ENT Reports Normal hearing present, Denies headache(s), Denies nasal congestion, Denies nasal discharge, Denies post nasal drip and Denies sore throat Card Denies chest pain, Denies chest pain at rest, Denies chest pain with activity, Denies claudication, Denies leg edema, Denies orthopnea and Denies paroxysmal nocturnal dyspnea Resp Denies chest congestion, Denies excessive phlegm production, Denies pain on inspiration, Denies pain with cough, Denies stridor and Denies wheezing Musc Denies myalgias Neuro Reports Normal hearing present and Denies headache(s) Endo Denies excessive sweating Jeanmarie/Lymph Denies lymphadenopathy Aller/Immun Denies wheezing Physical Exam Vital Signs: Last Vital Signs Pulse 79 09/06/24 13:04 BP 134/78 09/06/24 13:04 Pulse Ox 97 09/06/24 13:04 Oxygen Delivery Method Room Air 09/06/24 13:04 BMI result Body Mass Index 37.7 Const General: cooperative, healthy appearing, comfortable, no acute distress, well developed and alert Nutritional Appearance: obese Orientation/consciousness: patient oriented x3 Limitations: no limitations HEENT Head: Yes normal to inspection, Yes normocephalic and Yes atraumatic Ears: hearing grossly normal bilaterally and external ears normal Eyes General: appearance normal, both eyes and all related structures Eyelids: Yes eyelids normal Sclerae: sclerae normal EOM: EOMs intact bilaterally Neck Neck: Yes normal visual inspection and Yes no lymphadenopathy Lymphatic: no lymphadenopathy noted Chest Chest palpation & inspection: normal inspection of the chest Resp Effort & Inspection: normal respiratory effort, able to speak in complete sentences, no audible wheezes, no cough, no stridor, not tachypneic, no tripod positioning and no use of accessory muscles Auscultation: clear to auscultation bilaterally Cardio Jugular venous distension: no JVD Rate: regular rate Rhythm: regular rhythm Skin Other: warm, dry General skin exam: no rashes or lesions noted Neuro General: patient oriented x3 Cranial nerves: Yes Normal hearing present Cognition (Neuro): normal cognition Gait exam (Neuro): Normal gait present Extrem General: Yes normal to inspection, Yes capillary refill normal, Yes no clubbing, cyanosis or edema and Yes no pedal edema Psych Appearance: grossly normal and well kempt Speech and movement: Normal speech and movement present and Clear speech present Affect: normal affect Attitude: cooperative Thought process: Normal thought process present Thought content: Normal thought content present Insight: Good insight present (Psych) Judgement: Good judgement present (Psych) Assessment & Plan Assessment & Plan (1) Asthma: Code(s): J45.909 - Unspecified asthma, uncomplicated Category: Medical (2) Chronic allergic rhinitis: Code(s): J30.9 - Allergic rhinitis, unspecified Category: Medical Plan At this time, Bon reports good control of respiratory symptoms on current regimen, advised to continue. He is aware if symptoms change as Spring approaches or intermittent symptoms become more persistent to call the office. All questions were answered and patient is in agreement of plan. Will follow up in 6-9 months or sooner if needed. Coding Level of Care Code Est Pt Level 4 (70933) Diagnoses Asthma J45.909 Chronic allergic rhinitis J30.9
[2024-09-06 13:04] VITALS: BP 134/78; PULSE 79; O2SAT 97; BMI 37.7
--- OUTSIDE RECORDS SUMMARY | 2024-09-06 15:18 | XMS_ITS | Patient Health Record ---
Author Organization [facility] Address [address] [place] [address] Care Team Providers Care Glass Ribbon Machine Operator Name Role Phone COURTNEY SIMS Unavailable [phone] ALLERGIES Allergen (clinical drug ingredient) Drug/Non Drug [...] due to excess calories (E66.09) Active confirmed 003828865 Problem Other obesity (E66.8) Active confirmed Obesity (297496833) Problem Eating disorder, unspecified (F50.9) Active confirmed Eating disorder (89644388) Problem Morbid obesity (E66.01) Active confirmed 878131136 Problem BMI 40.0-44.9, adult (Z68.41) Active confirmed Body mass index 40+ - morbidly obese (812815930) Problem Body mass index [BMI] 38.0-38.9, adult (Z68.38) Active confirmed 569820457 Problem Obesity (BMI 35.0-39.9 without comorbidity) (E66.9) Active confirmed 393584933 Problem Adult BMI 37.0-37.9 kg/sq m (Z68.37) Active confirmed 281676146 Problem Body mass index [BMI] 40.0-44.9, adult (Z68.41) Active confirmed 140581440 Problem Bipolar affective disorder, current episode manic, current episode severity unspecified (F31.10) Active confirmed Manic bipolar I disorder (30095071) Encounters Encounter Location Date Provider Diagnosis [place] [address] [address] 01/30/2024 COURTNEY SIMS PLAN OF TREATMENT No Information Insurance Providers Payer Name Payer Address Payer Phone Subscriber Number Group Number Insured Name Patient Relationship to Insured Coverage Start Date Coverage End Date [facility] [address] [place] [address] [id number] Bon Knapp Self - patient is the insured 1 MEDICAL (GENERAL) HISTORY Medical History History ICD Code asthma Surgical History Surgery Date(Month/Year) wisdom teeth extraction 2010
--- OUTSIDE RECORDS SUMMARY | 2024-09-06 15:18 | XMS_ITS | Clinical Summary ---
Author Organization [facility] Address [address] [place] [address] Phone Care Team Providers Care Intellectual Property Manager Name Role Phone Gonzalez Sparks MD Primary Care Provider [phone] Allergies Active Allergy Reactions Criticality Noted Date Comments Amoxicillin 04/28/2023 Encounters Date Type Department Care Team Description 06/20/2024 Telephone Gastroenterology [facility] 175 [facility] 175 [facility] [address] [place] [address] Brian Bland DO cancel special [...] patient's age to complete this topic Insurance [place] [address] OLIVIA RIOS [id number] Care Teams Intellectual Property Manager Relationship Specialty Start Date End Date Gonzalez Sparks MD [facility] Ayazsage Mariela [address] PCP - General 04/19/23
--- OUTSIDE RECORDS SUMMARY | 2024-09-06 15:18 | XMS_ITS ---
Author Organization [facility] Address [address] [place] [address] Care Team Providers Care Chemical Process Engineer Name Role Phone COURTNEY SIMS Unavailable [phone] REASON FOR VISIT record request Encounters Encounter Location Date Provider Diagnosis [facility] 119 299 [facility] [address] [place] [address] 01/30/2024 COURTNEY SIMS PLAN OF TREATMENT No Information Progress Notes * Bon BARTONDOB:[birth year] (33 yo M)Acc No.[id number]:01/30/2024 Patient:??Bon BARTON :1990?Age:33 Y?Sex:Meri castro Address:[address] , [place] [address] * true * Date:??
--- OUTSIDE RECORDS SUMMARY | 2024-09-06 15:18 | XMS_ITS | Continuity of Care Document ---
Author Organization [place] [facility] Address [address] [place] [phone] Assessment Encounter Date Assessment Date Assessment LastModified [...] Aware of Vial Test Notes:? ? ? [email or web address] Not available 08/07/2024 16:53:20 Plan of Treatment Reminders Order Date Submit Date Provider Last Modified By Organization Details Last Modified Time Details Appointments None record ed. Lab None record ed. Referral None record ed. Procedures None record ed. Surgeries None record ed. Imaging None record ed. Medication Orders None record ed. Patient TargetsNo targets recorded. Patient InstructionsNo instructions recorded. Reason for Referral None Reported. Problems Name Problem SNOMED Code Status Onset Date Resolution Date Notes Provider Name and Address Organization Details Recorded Time Posterior rhinorrhe a 51605119 Active 2017 Postnasal drip; Note: Date Diagnosed: 05/04/2018 11:24 AM (R09.82) Not Available [facility] 03:23:27 Allergic rhinitis 49440655 Active 2023 Allergic rhinitis: Due to other [...] 4:22 PM (477.8) Note: G[place] Not Available [facility] 01:27:26 Peritonsi llar abscess 70287097 Active 2015 Peritonsil lar abscess; Note: Date Diagnosed: 03/14/2016 4:15 PM (J36) Not Available [facility] 4 03:23:27 Nasal congestio n 53299661 Active 2017 Nasal congestion ; Note: Date Diagnosed: 05/04/2018 11:24 AM (R09.81) Not Available [facility] 4 03:23:27 Seasonal allergic rhinitis 593857559 Active 2018 Other seasonal allergic rhinitis; Note: Date Diagnosed: 07/16/2018 10:13 AM (J30.2) Not Available [facility] 4 03:23:27 Perennial allergic rhinitis 858880293 Active 2023 RACH HIGGINS, RMA [address],[place] [address] [place] [address], [address] , [facility] - [facility] 16:31:36 Problem Notes None recorded. Procedures Surgical History Date Name Laterality Status Provider Name and Address Organization Details Recorded Time 09/05/19 25 Allergy Immunotherapy Injections completed ELLE CHATMAN RN [address],[place] [address], [address], [facility] - [facility] 09/04/2024 16:10:03 08/24/19 25 Allergy Immunotherapy Injections completed RACH HIGGINS RMNatasha [address],[place], [address], [facility] - [facility] 08/23/2024 14:32:54 08/07/19 25 Allergy Immunotherapy Injections completed SAL GALINDO [address],[place] [address] [place] [address], [address], [facility] - [facility] 08/07/2024 16:52:59 07/17/19 25 Allergy Immunotherapy Injections completed ELLE CHATMAN RN [address],[place] [address] [place] [address], [address], [facility] - [facility] 07/17/2024 17:03:31 07/03/19 25 Allergy Immunotherapy Injections completed RACH HIGGINS RMNatasha [address],[place] [address] [place] [address], [address], [facility] - [facility] 07/03/2024 13:24:50 06/26/19 25 Allergy Immunotherapy Injections completed SAL GALINDO [address], [place], [address], [facility] - [facility] 06/26/2024 17:24:00 06/10/20 24 Allergy Immunotherapy Injections completed RACH HIGGINS RMNatasha [address],[place], [address], [facility] - [facility] 06/10/2024 11:59:19 05/30/20 24 Allergy Immunotherapy Injections completed ELLE CHATMAN RN [address],[place] [address], [address], [place] [facility] 05/30/2024 16:26:26 05/14/20 24 Allergy Immunotherapy Injections completed RACH HIGGINS RMA [address],[place] [address], [address], [place] [facility] 05/14/2024 15:52:38 05/10/20 24 Allergy Immunotherapy Injections completed SAL GALINDO [address],[place] [address], [address], [place] [facility] 05/10/2024 13:56:20 05/01/20 24 Allergy Immunotherapy Injections completed ELLE CHATMAN RN [address],[place] [address] [place] [address], [address], [place] [facility] 05/01/2024 16:20:08 04/17/20 24 Allergy Immunotherapy Injections completed RACH HIGGINS RMA [address],[place] [address] [place] [address], [address], [place] [facility] 04/17/2024 16:48:38 04/10/20 24 Allergy Immunotherapy Injections completed ELLE CHATMAN RN [address] [facility] [place] [address] [place] [address], [address], [place] [facility] 04/10/2024 16:17:42 04/03/20 24 Allergy Immunotherapy Injections completed SAL GALINDO [address],[place] [address] [place] [address], [address], [place] [facility] 04/03/2024 17:19:19 03/27/20 24 Allergy Immunotherapy Injections completed RACH HIGGINS RMA [address],[place] [address] [place] [address], [address], [place] [facility] 03/27/2024 17:11:33 03/19/20 24 Allergy Immunotherapy Injections completed RACH HIGGINS RMA [address],[place] [address], [address], [place] [facility] 03/19/2024 16:18:00 03/12/20 24 Allergy Immunotherapy Injections completed SAL GALINDO [address], [place], [address], [place] [facility] 03/12/2024 16:59:58 03/06/20 24 Allergy Immunotherapy Injections completed SAL GALINDO [address], [place], [address], [place] [facility] 03/06/2024 16:53:38 02/21/20 24 Allergy Immunotherapy Injections completed TONI GALINDOA [address], [place], [address], [place] [facility] 02/21/2024 17:06:21 02/16/20 24 Allergy Immunotherapy Injections completed SAL GALINDO [address], [place], [address], [place] [facility] 02/16/2024 11:38:32 02/09/20 24 Allergy Immunotherapy Injections completed TONI NAVARROA [address], [place], [address], [place] [facility] 02/09/2024 14:15:11 01/31/20 24 Allergy Immunotherapy Injections completed RACH HIGGINS RMA [address], [place], [address], [place] [facility] 01/31/2024 16:45:20 01/24/20 24 Allergy Immunotherapy Injections completed TONI GALINDOA [address], [place], [address], [place] [facility] 01/24/2024 16:54:44 01/09/20 24 Allergy Immunotherapy Injections completed RACH HIGGINS RMA [address], [place], [address], [place] [facility] 01/09/2024 14:20:54 01/05/20 24 Allergy Immunotherapy Injections completed RACH HIGGINS RMA [address], [place], [address], [place] [facility] 01/05/2024 09:57:45 12/26/19 24 Allergy Immunotherapy Injections completed SAL GALINDO [address], [place], [address], [facility] - [facility] 12/26/2023 15:50:59 12/19/19 24 Allergy Immunotherapy Injections completed ELLE CHATMAN RN [address], [address], [facility] - [facility] 12/19/2023 16:43:24 12/05/19 24 Allergy Immunotherapy Injections completed SAL GALINDO [address], [address], [facility] - [facility] 12/05/2023 16:12:33 11/29/19 24 Allergy Immunotherapy Injections completed RACH HIGGINS RMA [address], [address], [facility] - [facility] 11/29/2023 17:05:00 11/21/19 24 Allergy Immunotherapy Injections completed RACH HIGGINS RMA [address],[place] [place] [address], [address], [facility] - [facility] 11/21/2023 15:51:07 11/20/19 24 Telehealth completed MAGO CAZARES PA-C [address] [facility] [place] [address] [place] [address], [address], [facility] - [facility] 11/20/2023 09:23:48 11/16/19 24 Allergy Immunotherapy Injections completed SAL GALINDO [address] [facility] [place] [address] [place] [address], [address], [facility] - [facility] 11/16/2023 15:52:45 11/08/19 24 Allergy Immunotherapy Injections completed RACH HIGGINS, RMA [address],[place] [address] [place] [address], [address], [facility] - [facility] 11/08/2023 16:32:04 Imaging Results None recorded. Procedure Notes None recorded. Medical Equipment None Reported. Allergies Allergen ID Allergen Name Allergen Category Reaction Reaction Severity Criticality Documentation Date Start Date Code Code System Note Provider Name and Address Organization Details Recorded Time 836759 amoxicill in medicatio n other Not available Not available 10/31/2023 723 RxNorm React ion: unkno wn, unspe cifie d;; Not Available [facility] 4 01:26:29 Medications Name Sig Start Date [...] Not Available Not Available No t Available chlorzoxa zone 250 mg tablet TAKE 1 TABLET BY MOUTH [...] mg tablet 07/02 completed Medicati on ID: [id number] R hoa: () Brand Name: Zoloft S end Method: E-Prescr ibed Sub s Allowed: subs OK Medic ationGen ericName : Zoloft Not Available Not Available Not Available baclofen 10 mg tablet TAKE 1 TABLET BY MOUTH THREE TIMES DAILY active Not Available Not Available No t Available cephalexi n 500 mg capsule TAKE 1 CAPSULE BY MOUTH EVERY 12 HOURS FOR 10 DAYS active Not Available Not Available No t Available clotrimaz ole-betam ethasone 1 %-0.05 % topical cream APPLY 1 SMALL AMOUNT TO AFFECTED AREA TWICE A DAY FOR 14 DAYS THEN NEEDED active Not Available Not Available No t Available omeprazol e 20 mg capsule,d elayed release active Not Available Not Available Not Available monteluka st 10 mg tablet TAKE 1 TABLET BY MOUTH AT BEDTIME active Not Available Not Available No t Available azelastin e 137 mcg (0.1 %) nasal spray [place]ner 2 sprays twice a day by intranas al route for 90 days. 2024 active Not Available Not Available Not Avai lable epinephri ne 0.3 mg/0.3 mL injection , auto-inje ctor Inject 1 pen injector single dose as needed 2023 active Not Available Not Available Not Avai lable polyethyl kae glycol 3350 17 gram/dose oral powder 05/09 completed Medicati on ID: [id number] D uration Value: 7 Brand Name: polyethy [...] Not Available Not Available No t Available Trelegy Ellipta 200 mcg-62.5 mcg-25 mcg powder for inhalatio n INHALE 1 PUFF BY MOUTH DAILY active Not Available Not Available No t Available Accrufer 30 mg capsule TAKE 1 CAPSULE BY MOUTH TWICE A DAY active Not Available Not Available No t Available Zepbound 10 mg/0.5 mL subcutane ous pen injector ADMINIST ER 10 MG UNDER THE SKIN 1 TIME WEEKLY active Not Available Not Available No t Available Zepbound 5 mg/0.5 mL subcutane ous pen injector INJECT 5MG UNDER THE SKIN ONCE WEEKLY FOR 28 DAYS active Not Available Not Available No t Available Zepbound 12.5 mg/0.5 mL subcutane ous pen injector active Not Available Not Available Not Available Zepbound 7.5 mg/0.5 mL subcutane ous pen injector ADMINIST ER 7.5 MG UNDER THE SKIN 1 TIME WEEKLY active Not Available Not Available No t Available Vitals None Recorded Social History None recorded. Functional Status None recorded. Mental Status None recorded. Family History Nothing Reported. Medical History No medical history recorded. Past Encounters Encounter ID Performer Location Encounter Start Date Encounter Closed Date Diagnosis/Indication Diagnosis SNOMED-CT Code Diagnosis ICD10 Code Diagnosis Note [id number] ELLE CHATMAN RN Allergy [address] [place], [place] [address] 100 [facility] [place] [address] 07/17/2024 16:56:23 07/17/2024 17:03:56 Perennial allergic rhinitis 105216375 J30.89 [id number] SAL GALINDO Allergy 100 [facility],[place] [address] [facility] [place] [address] 08/07/2024 16:44:26 08/07/2024 17:00:12 Perennial allergic rhinitis 105944460 J30.89 Health Concerns Section Related Observation LastModified by Organization Detai ls LastModified Time None Recorded Concern Status LastModified by Organization Details LastModified Time None Recorded Payers Encounter Date Sequence Insurance Name Policy Number Policy Koenig Covered Member ID Koenig Member ID Guarantor Name 08/07/2024 1 [facility] [place] [id number] Bon Knapp [id number] Bon Knapp
--- OUTSIDE RECORDS SUMMARY | 2024-09-06 15:19 | XMS_ITS | Continuity of Care Document ---
Author Organization [place] [facility] Formerly [facility], Allergy Address [address] [place] [phone] Assessment Encounter Date Assessment Date Assessment LastModified by Organization Details LastModified Time 08/23/2024 08/23/2024 Visit With: Cary Gonzales Use of Antihistamine s: No If yes: Vial Test Change in medications: No If yes ? ? ? Increase in asthma symptoms If yes, inhaler use: Reaction to last injections: No If yes: ? ? ? Allergy Symptoms: Other: ? ? ? Missed: Dose Aware of Vial Test Notes:? ? ? [email or web address] Not available 08/23/2024 14:33:01 Plan of Treatment Reminders Order Date Submit [...] Organization Details Recorded Time Posterior rhinorrhe a 73692087 Active 2017 Postnasal drip; Note: Date Diagnosed: 05/04/2018 11:24 AM (R09.82) Not [facility] 03:23:27 Allergic rhinitis 53955659 Active 2023 Allergic rhinitis: Due to other [...] 4:22 PM (477.8) Note: Gagan Not Available [facility] 4 01:27:26 Peritonsi llar abscess 06410016 Active 2015 Peritonsil lar abscess; Note: Date Diagnosed: 03/14/2016 4:15 PM (J36) Not Available [facility] 4 03:23:27 Nasal congestio n 96327109 Active 2017 Nasal congestion ; Note: Date Diagnosed: 05/04/2018 11:24 AM (R09.81) Not Available [facility] 4 03:23:27 Seasonal allergic rhinitis 145491882 Active 2018 Other seasonal allergic rhinitis; Note: Date Diagnosed: 07/16/2018 10:13 AM (J30.2) Not Available [facility] 4 03:23:27 Perennial allergic rhinitis 661649020 Active 2023 RACH HIGGINS, RMA [address],SC[address] [place] [address], [address] , [place] - [facility] 16:31:36 Problem Notes None recorded. Procedures Surgical History Date Name Laterality Status Provider Name and Address Organization Details Recorded Time 09/05/19 25 Allergy Immunotherapy Injections completed ELLE CHATMAN RN [address], [place], [address], [facility] - [facility] 09/04/2024 16:10:03 08/24/19 25 Allergy Immunotherapy Injections completed RACH HIGGINS RMNatasha [address],SC[address] [place] [address], [address], [facility] - [facility] 08/23/2024 14:32:54 08/07/19 25 Allergy Immunotherapy Injections completed SAL GALINDO [address] [place] [address], [address], [facility] - [facility] 08/07/2024 16:52:59 07/17/19 25 Allergy Immunotherapy Injections completed ELLE CHATMAN RN [facility],[address] [place] [address], [address], [facility] - [facility] 07/17/2024 17:03:31 07/03/19 25 Allergy Immunotherapy Injections completed RACH HIGGINS RMA [address] [place] [address], [address], [place] [facility] 07/03/2024 13:24:50 06/26/19 25 Allergy Immunotherapy Injections completed SAL GALINDO [address], [place], [address], [facility] - [facility] 06/26/2024 17:24:00 06/10/20 24 Allergy Immunotherapy Injections completed RACH HIGGINS RMNatasha [address], [place], [address], [facility] - [facility] 06/10/2024 11:59:19 05/30/20 24 Allergy Immunotherapy Injections completed ELLE CHATMAN RN [address], [place], [address], [place] [facility] 05/30/2024 16:26:26 05/14/20 24 Allergy Immunotherapy Injections completed SAL NAVARRO [address], [place], [address], [place] [facility] 05/14/2024 15:52:38 05/10/20 24 Allergy Immunotherapy Injections completed SAL GALINDO [address] [facility],[address], [place], [address], [place] [facility] 05/10/2024 13:56:20 05/01/20 24 Allergy Immunotherapy Injections completed ELLE CHATMAN RN 100 [facility],[address] [place] [address], [address], [place] [facility] 05/01/2024 16:20:08 04/17/20 24 Allergy Immunotherapy Injections completed SAL NAVARRO 100 [facility],[address], [address], [place] [facility] 04/17/2024 16:48:38 04/10/20 24 Allergy Immunotherapy Injections completed LELE CHATMAN RN 100 [facility],[address], [address], [place] [facility] 04/10/2024 16:17:42 04/03/20 24 Allergy Immunotherapy Injections completed SAL GALINDO 100 [facility],[address] [place] [address], [address], [place] [facility] 04/03/2024 17:19:19 03/27/20 24 Allergy Immunotherapy Injections completed RACH HIGGINS RMA [address] [place] [address], [address], [place] [facility] 03/27/2024 17:11:33 03/19/20 24 Allergy Immunotherapy Injections completed RACH HIGGINS RMA [address] [facility],[address], [place], [address], [place] [facility] 03/19/2024 16:18:00 03/12/20 24 Allergy Immunotherapy Injections completed SAL GALINDO [address], [place], [address], [place] [facility] 03/12/2024 16:59:58 03/06/20 24 Allergy Immunotherapy Injections completed SAL GALINDO [address], [place], [address], [place] [facility] 03/06/2024 16:53:38 02/21/20 24 Allergy Immunotherapy Injections completed SAL GALINDO [address], [place], [address], [place] [facility] 02/21/2024 17:06:21 02/16/20 24 Allergy Immunotherapy Injections completed SAL GALINDO [address], [place], [address], [place] [facility] 02/16/2024 11:38:32 02/09/20 24 Allergy Immunotherapy Injections completed TONI NAVARROA [address], [place], [address], [place] [facility] 02/09/2024 14:15:11 01/31/20 24 Allergy Immunotherapy Injections completed RACH HIGGINS RMA [address], [place], [address], [place] [facility] 01/31/2024 16:45:20 01/24/20 24 Allergy Immunotherapy Injections completed SAL GALINDO [address], [place], [address], [place] [facility] 01/24/2024 16:54:44 01/09/20 24 Allergy Immunotherapy Injections completed RACH HIGGINS RMA [address], [place], [address], [place] [facility] 01/09/2024 14:20:54 01/05/20 24 Allergy Immunotherapy Injections completed RACH HIGGINS RMA [address], [place], [address], [place] [facility] 01/05/2024 09:57:45 12/26/19 24 Allergy Immunotherapy Injections completed CARY FLO, RMA [address], [place], [address], [facility] - [facility] 12/26/2023 15:50:59 12/19/19 24 Allergy Immunotherapy Injections completed ELLE CHATMAN RN [address], [place], [address], [facility] - [facility] 12/19/2023 16:43:24 12/05/19 24 Allergy Immunotherapy Injections completed SAL GALINDO [address], [place], [address], [facility] - [facility] 12/05/2023 16:12:33 11/29/19 24 Allergy Immunotherapy Injections completed RACH HIGGINS RMNatasha [address] [facility] [place] [address], [address], [facility] - [facility] 11/29/2023 17:05:00 11/21/19 24 Allergy Immunotherapy Injections completed RACH HIGGINS RMNatasha [address] [facility],[address] [place] [address], [address], [facility] - [facility] 11/21/2023 15:51:07 11/20/19 24 Telehealth completed MAGO CAZARES PA-C [address] [facility], [address], [facility] - [facility] 11/20/2023 09:23:48 11/16/19 24 Allergy Immunotherapy Injections completed SAL GALINDO [address] [facility],[address] [place] [address], [address], [facility] - [facility] 11/16/2023 15:52:45 11/08/19 24 Allergy Immunotherapy Injections completed RACH HIGGINS RMA [address] [facility] [place] [address], [address], [facility] - [facility] 11/08/2023 16:32:04 Imaging Results None recorded. Procedure Notes None recorded. Medical Equipment None Reported. Allergies Allergen ID Allergen Name Allergen Category Reaction Reaction Severity Criticality Documentation Date Start Date Code Code System Note Provider Name and Address Organization Details Recorded Time 892138 amoxicill in medicatio n other Not available Not available 10/31/2023 723 RxNorm React ion: unkno wn, unspe cifie d;; Not Available [facility] 4 01:26:29 Medications Name Sig Start Date [...] mg tablet 07/02 completed Medicati on ID: [id number] R hoa: () Brand Name: Zoloft S [...] e 137 mcg (0.1 %) nasal spray [place] 2 sprays twice a day by intranas al route for 90 days. 2024 active Not Available Not Available Not Avai lable epinephri ne 0.3 mg/0.3 mL injection , auto-inje ctor Inject 1 pen injector single dose as needed 2023 active Not Available Not Available Not Avai lable polyethyl kae glycol 3350 17 gram/dose oral powder 05/09 completed Medicati on ID: [id number] D uration Value: 7 Brand Name: polyethy [...] SNOMED-CT Code Diagnosis ICD10 Code Diagnosis Note [id number] [address] Allergy 100 [facility],[place] [address] [facility] [place] [address] 08/07/2024 16:44:26 08/07/2024 17:00:12 Perennial allergic rhinitis 944739348 J30.89 [id number] RACH MEÑO, RMA Allergy 100 [facility],[address] [place] [address] 08/23/2024 14:31:46 08/23/2024 14:33:19 Perennial allergic rhinitis 904965683 J30.89 Health Concerns Section Related Observation LastModified by Organization Detai ls LastModified Time None Recorded Concern Status LastModified by Organization Details LastModified Time None Recorded Payers Encounter Date Sequence Insurance Name Policy Number Policy Koenig Covered Member ID Koenig Member ID Guarantor Name 08/23/2024 1 [facility] [place] [place] [id number] Bon Knapp [id number] Bon Knapp
--- OUTSIDE RECORDS SUMMARY | 2024-09-06 15:19 | XMS_ITS | Clinical Summary ---
Author Organization [facility] Address [address] [place] [address] Care Team Providers Care Conveyor Console Operator Name Role Phone Pcp, No Primary Care Provider Unavailabl e Allergies No known active allergies Medications Medication Sig Dispensed Refills Start Date End Date Status lamoTRIgine (LaMICtal) 100 MG tablet Take 1 tablet (100 mg total) by mouth daily. Active QUEtiapine (SEROquel) 50 MG tablet Take 1 tablet (50 mg total) by mouth nightly. Active [place] 3 1000 MG Cap capsule Take 2,150 [...] drink = 0.6 oz pur e alcohol) [facility] - Occupational Stress [...] age to complete this topic Care Teams Conveyor Console Operator Relationship Specialty Start Date End Date Pcp, No [address] [place] [address] PCP - General 11/23/22
--- OUTSIDE RECORDS SUMMARY | 2024-09-06 15:19 | XMS_ITS | Continuity of Care Document ---
Author Organization [place] [facility], [facility] Address [address] [place] [address] Assessment Encounter Date Assessment Date Assessment LastModified by Organization Details LastModified Time 09/02/2024 09/02/2024 34-year-old male presents for 6-month allergy review. Refill of azelastine sent to pharmacy. Continue immunotherapy . Follow-up in 6 months. gala Not available 09/02/2024 15:27:43 Plan of Treatment Reminders Order Date Submit Date Provider Last Modified By Organization Details Last Modified Time Details Appointments None recorded. Lab None recorded. Referral None recorded. Procedures None recorded. Surgeries None recorded. Imaging None recorded. Medication Orders azelastine 137 mcg (0.1 %) nasal spray 2024 025 [facility]) #[id number], [address] [place], [place], [id number], 5 15:28:16 Patient TargetsNo targets recorded. Patient InstructionsNo instructions recorded. Reason for Referral None Reported. Problems Name Problem SNOMED Code Status Onset Date Resolution Date Notes Provider Name and Address Organization Details Recorded Time Posterior rhinorrhe a 87438344 Active 2017 Postnasal drip; Note: Date Diagnosed: 05/04/2018 11:24 AM (R09.82) Not Available [facility] 4 03:23:27 Allergic rhinitis 92315754 Active 2023 Allergic rhinitis: Due to other [...] (477.8) Note: Gagan Not Available [facility] 4 01:27:26 Peritonsi llar abscess 37139225 Active 2015 Peritonsil lar abscess; Note: Date Diagnosed: 03/14/2016 4:15 PM (J36) Not Available [facility] 4 03:23:27 Nasal congestio n 10469277 Active 2017 Nasal congestion ; Note: Date Diagnosed: 05/04/2018 11:24 AM (R09.81) Not Available [facility] 4 03:23:27 Seasonal allergic rhinitis 571999305 Active 2018 Other seasonal allergic rhinitis; Note: Date Diagnosed: 07/16/2018 10:13 AM (J30.2) Not Available [facility] 03:23:27 Perennial allergic rhinitis 771132407 Active 2023 RACH HIGGINS, RMA [address], [place], [address] , [place] [facility] 16:31:36 Problem Notes None recorded. Procedures Surgical History Date Name Laterality Status Provider Name and Address Organization Details Recorded Time 09/05/19 25 Allergy Immunotherapy Injections completed ELLE CHATMAN RN [address], [place], [address], [facility] - [facility] 09/04/2024 16:10:03 08/24/19 25 Allergy Immunotherapy Injections completed RACH HIGGINS, RMA [address], [place], [address], [place] [facility] 08/23/2024 14:32:54 08/07/19 25 Allergy Immunotherapy Injections completed SAL GALINDO [address], [place], [address], [facility] - [facility] 08/07/2024 16:52:59 07/17/19 25 Allergy Immunotherapy Injections completed ELLE CHATMAN RN [address], [place], [address], [place] [facility] 07/17/2024 17:03:31 07/03/19 25 Allergy Immunotherapy Injections completed RACH HIGGINS RMA [address], [place], [address], [facility] - [facility] 07/03/2024 13:24:50 06/26/19 25 Allergy Immunotherapy Injections completed LIZZIE ROSSI RMA [address], [place], [address], [facility] - [facility] 06/26/2024 17:24:00 06/10/20 24 Allergy Immunotherapy Injections completed RACH HIGGINS RMA [address], [place], [address], [place] [facility] 06/10/2024 11:59:19 05/30/20 24 Allergy Immunotherapy Injections completed ELLE CHATMAN RN [address], [place], [address], [place] [facility] 05/30/2024 16:26:26 05/14/20 24 Allergy Immunotherapy Injections completed RACH HIGGINS RMA [address], [place], [address], [place] [facility] 05/14/2024 15:52:38 05/10/20 24 Allergy Immunotherapy Injections completed SAL GALINDO [address], [place], [address], [place] [facility] 05/10/2024 13:56:20 05/01/20 Allergy Immunotherapy Injections completed ELLE CHATMAN RN [address] [place] [address], [address], [place] [facility] 05/01/2024 16:20:08 04/17/20 24 Allergy Immunotherapy Injections completed RACH HIGGINS RMA [address] [place] [address], [address], [place] [facility] 04/17/2024 16:48:38 04/10/20 24 Allergy Immunotherapy Injections completed ELLE CHATMAN RN [address] [place] [address], [address], [place] [facility] 04/10/2024 16:17:42 04/03/20 24 Allergy Immunotherapy Injections completed SAL GALINDO [address], [place], [address], [place] [facility] 04/03/2024 17:19:19 03/27/20 24 Allergy Immunotherapy Injections completed RACH HIGGINS RMA [address], [place], [address], [place] [facility] 03/27/2024 17:11:33 03/19/20 24 Allergy Immunotherapy Injections completed RACH HIGGINS RMA [address], [place], [address], [place] [facility] 03/19/2024 16:18:00 03/12/20 24 Allergy Immunotherapy Injections completed TONI GALINDOA [address], [place], [address], [place] [facility] 03/12/2024 16:59:58 03/06/20 24 Allergy Immunotherapy Injections completed TONI GALINDOA [address], [place], [address], [place] [facility] 03/06/2024 16:53:38 02/21/20 24 Allergy Immunotherapy Injections completed LIZZIE ROSSI RMA [address], [place], [address], [place] [facility] 02/21/2024 17:06:21 02/16/20 24 Allergy Immunotherapy Injections completed TONI GALINDOA [address], [place], [address], [place] [facility] 02/16/2024 11:38:32 02/09/20 24 Allergy Immunotherapy Injections completed RACH HIGGINS RMA [address], [place], [address], [place] [facility] 02/09/2024 14:15:11 01/31/20 24 Allergy Immunotherapy Injections completed RACH HIGGINS RMA [address], [place], [address], [place] [facility] 01/31/2024 16:45:20 01/24/20 24 Allergy Immunotherapy Injections completed LIZZIE ROSSI RMA [address], [place], [address], [place] [facility] 01/24/2024 16:54:44 01/09/20 24 Allergy Immunotherapy Injections completed RACH HIGGINS RMA [address], [place], [address], [place] [facility] 01/09/2024 14:20:54 01/05/20 24 Allergy Immunotherapy Injections completed RACH WILDERC, RMA [address], [place], [address], [facility] - [facility] 01/05/2024 09:57:45 12/26/19 24 Allergy Immunotherapy Injections completed SAL GALINDO [address], [place], [address], [facility] - [facility] 12/26/2023 15:50:59 12/19/19 24 Allergy Immunotherapy Injections completed ELLE CHATMAN RN [address], [place], [address], [facility] - [facility] 12/19/2023 16:43:24 12/05/19 24 Allergy Immunotherapy Injections completed SAL GALINDO [address] [place] [address], [address], [facility] - [facility] 12/05/2023 16:12:33 11/29/19 24 Allergy Immunotherapy Injections completed RACH HIGGINS RMNatasha [address] [place] [address], [address], [facility] - [facility] 11/29/2023 17:05:00 11/21/19 24 Allergy Immunotherapy Injections completed RACH HIGGINS RMA [address] [place] [address], [address], [facility] - [facility] 11/21/2023 15:51:07 11/20/19 24 Telehealth completed MAGO CAZARES PA-C [address] [place] [address], [address], [facility] - [facility] 11/20/2023 09:23:48 11/16/19 24 Allergy Immunotherapy Injections completed SAL GALINDO [address], [place], [address], [facility] - [facility] 11/16/2023 15:52:45 11/08/19 24 Allergy Immunotherapy Injections completed RACH HIGGINS RMA [address], [place], [address], [facility] - [facility] 11/08/2023 16:32:04 Imaging Results None recorded. Procedure Notes None recorded. Medical Equipment None Reported. Allergies Allergen ID Allergen Name Allergen Category Reaction Reaction Severity Criticality Documentation Date Start Date Code Code System Note Provider Name and Address Organization Details Recorded Time 558703 amoxicill in medicatio n other Not available Not available 10/31/2023 723 RxNorm React ion: unkno wn, unspe cifie d;; Not Available [facility] 4 01:26:29 Medications Name Sig Start [...] mg tablet 07/02 completed Medicati on ID: [id number] R hoa: () Brand Name: Zoloft S [...] e 137 mcg (0.1 %) nasal spray [place] 2 sprays twice a day by intranas al route for 90 days. 2024 active Not Available Not Available Not Avai lable epinephri ne 0.3 mg/0.3 mL injection , auto-inje ctor Inject 1 pen injector single dose as needed 2023 active Not Available Not Available Not Avai lable polyethyl kae glycol 3350 17 gram/dose oral powder 05/09 completed Medicati on ID: [id number] D uration Value: 7 Brand Name: polyethy [...] SNOMED-CT Code Diagnosis ICD10 Code Diagnosis Note [id number] LIZZIE FLO, [facility] Allergy 100 [facility],[address] [address] 08/07/2024 16:44:26 08/07/2024 17:00:12 Perennial allergic rhinitis 110002823 J30.89 53715 RACH HIGGINS [facility] Allergy 100 [facility] 100 [place] [address] 08/23/2024 14:31:46 08/23/2024 14:33:19 Perennial allergic rhinitis 698431668 J30.89 [id number] ADRIANE MUNGUIA MD [facility] [address] [place] [address] 09/02/2024 15:25:05 09/02/2024 15:28:49 Allergic rhinitis 36108125 J30.9 Nasal congestion 2673890 0 R09.81 Health Concerns Section Related Observation LastModified by Organization Detai ls LastModified Time None Recorded Concern Status LastModified by Organization Details LastModified Time None Recorded Payers Encounter Date Sequence Insurance Name Policy Number Policy Koenig Covered Member ID Koenig Member ID Guarantor Name 09/02/[address] [place] [address] ([facility] [place] [id number] Bon Knapp [id number] Bon Knapp Notes Date Note Type Note Provider Name and Address Organization Details Recorded Time 09/02/2024 text/html 34-year-old male presents for 6-month allergy review. He continues immunotherapy and is on biweekly injection. Overall doing well but needs refill on azelastine. Has been having some asthma flare but admits this is because he has not been taking his daily inhaler. ADRIANE MAYFIELD MD 100 [facility],[place] [address], [place], [address], [facility] - [facility] 09/02/2024 16:37:08
--- OUTSIDE RECORDS SUMMARY | 2024-09-06 15:19 | XMS_ITS | Data Portability ---
Author Organization [place] - [facility], Allergy Address [address] [place] [id number] Assessment Encounter Date Assessment Date Assessment LastModified [...] Aware of Vial Test Notes:? ? ? [email or web address] Not available 08/07/2024 16:53:20 08/23/2024 08/23/2024 Visit With: Cary Gonzales Use of Antihistamine s: No If yes: Vial Test Change in medications: No If yes ? ? ? Increase in asthma symptoms If yes, inhaler use: Reaction to last injections: No If yes: ? ? ? Allergy Symptoms: Other: ? ? ? Missed: Dose Aware of Vial Test Notes:? ? ? [email or web address] Not available 08/23/2024 14:33:01 09/02/2024 09/02/2024 34-year-old male presents for 6-month allergy review. Refill of azelastine sent to pharmacy. Continue immunotherapy . Follow-up in 6 months. [email or web address] Not available 09/02/2024 15:27:43 09/04/2024 09/04/2024 Visit With: SAL Nugent Use of Antihistamine s: No If yes: Vial Test Change in medications: No If yes ? ? ? Increase in asthma symptoms No If yes, inhaler use: Reaction to last injections: No If yes: ? ? ? Allergy Symptoms: Other: ? ? ? Missed: Dose Aware of Vial Test Notes:? ? ? [email or web address] Not available 09/04/2024 16:10:14 Plan of Treatment Reminders Order Date Submit Date Provider Last Modified By Organization Details Last Modified Time Details Appointments None recorded. Lab None recorded. Referral None recorded. Procedures None recorded. Surgeries None recorded. Imaging None recorded. Medication Orders azelastine 137 mcg (0.1 %) nasal spray 2024 025 [facility] Counts Include [facility]) #[id number], [address], [place], [id number], 5 15:28:16 Patient TargetsNo targets recorded. Patient InstructionsNo instructions recorded. Reason for Referral None Reported. Problems Name Problem SNOMED Code Status Onset Date Resolution Date Notes Provider Name and Address Organization Details Recorded Time Posterior rhinorrhe a 85891254 Active 2017 Postnasal drip; Note: Date Diagnosed: 05/04/2018 11:24 AM (R09.82) Not Available [facility] 4 03:23:27 Allergic rhinitis 96965724 Active 2023 Allergic rhinitis: Due to other [...] [facility] 4 01:27:26 Peritonsi llar abscess 54646420 Active 2015 Peritonsil lar abscess; Note: Date Diagnosed: 03/14/2016 4:15 PM (J36) Not Available [facility] 4 03:23:27 Nasal congestio n 77515509 Active 2017 Nasal congestion ; Note: Date Diagnosed: 05/04/2018 11:24 AM (R09.81) Not Available [facility] 4 03:23:27 Seasonal allergic rhinitis 883947038 Active 2018 Other seasonal allergic rhinitis; Note: Date Diagnosed: 07/16/2018 10:13 AM (J30.2) Not Available [facility] 4 03:23:27 Perennial allergic rhinitis 445551339 Active 2023 [facility], [address],[place] [address], [facility] [address] , [place] - [facility] 16:31:36 Problem Notes None recorded. Procedures Surgical History Date Name Laterality Status Provider Name and Address Organization Details Recorded Time 09/05/19 25 Allergy Immunotherapy Injections completed ELLE CHATMAN RN [address], [place], [address], [place] [facility] 09/04/2024 16:10:03 08/24/19 25 Allergy Immunotherapy Injections completed SAL NUGENT [address], [place], [address], [place] [facility] 08/23/2024 14:32:54 08/07/19 25 Allergy Immunotherapy Injections completed SAL GALINDO [address], [address], [place] [facility] 08/07/2024 16:52:59 07/17/19 25 Allergy Immunotherapy Injections completed ELLE CHATMAN RN [address] [place] [address], [address], [place] [facility] 07/17/2024 17:03:31 07/03/19 25 Allergy Immunotherapy Injections completed SAL NUGENT [address], [address], [place] [facility] 07/03/2024 13:24:50 06/26/19 25 Allergy Immunotherapy Injections completed SAL GALINDO [address] [place] [address], [address], [place] [facility] 06/26/2024 17:24:00 06/10/20 24 Allergy Immunotherapy Injections completed SAL NUGENT [address], [address], [place] [facility] 06/10/2024 11:59:19 05/30/20 24 Allergy Immunotherapy Injections completed ELLE CHATMAN RN [address], [place], [address], [place] [facility] 05/30/2024 16:26:26 05/14/20 24 Allergy Immunotherapy Injections completed RACH KORZEC, RMA [address], [place], [address], [place] [facility] 05/14/2024 15:52:38 05/10/20 Allergy Immunotherapy Injections completed SAL GALINDO [address], [place], [address], [place] [facility] 05/10/2024 13:56:20 05/01/20 24 Allergy Immunotherapy Injections completed ELLE CHATMAN RN [address], [place], [address], [place] [facility] 05/01/2024 16:20:08 04/17/20 Allergy Immunotherapy Injections completed RACH HIGGINS RMA [address], [place], [address], [place] [facility] 04/17/2024 16:48:38 04/10/20 24 Allergy Immunotherapy Injections completed [facility]ATMAN RN [facility] [employer],[address] [place] [address], [address], [place] [facility] 04/10/2024 16:17:42 04/03/20 24 Allergy Immunotherapy Injections completed SAL GALINDO [address] [place] [address], [address], [place] [facility] 04/03/2024 17:19:19 03/27/20 24 Allergy Immunotherapy Injections completed RACH HIGGINS RMA [address] [place] [address], [address], [place] [facility] 03/27/2024 17:11:33 03/19/20 24 Allergy Immunotherapy Injections completed RACH HIGGINS RMA [address], [place], [address], [place] [facility] 03/19/2024 16:18:00 03/12/20 24 Allergy Immunotherapy Injections completed SAL GALINDO [address], [address], [place] [facility] 03/12/2024 16:59:58 03/06/20 24 Allergy Immunotherapy Injections completed TONI GALINDOA [address], [place], [address], [place] [facility] 03/06/2024 16:53:38 02/21/20 24 Allergy Immunotherapy Injections completed TONI GALINDOA [address], [place], [address], [place] [facility] 02/21/2024 17:06:21 02/16/20 24 Allergy Immunotherapy Injections completed TONI GALINDOA [address], [place], [address], [place] [facility] 02/16/2024 11:38:32 02/09/20 24 Allergy Immunotherapy Injections completed RACH HIGGINS RMA [address], [place], [address], [place] [facility] 02/09/2024 14:15:11 01/31/20 24 Allergy Immunotherapy Injections completed RACH HIGGINS RMA [address], [place], [address], [place] [facility] 01/31/2024 16:45:20 01/24/20 24 Allergy Immunotherapy Injections completed TONI GALINDOA [address], [place], [address], [place] [facility] 01/24/2024 16:54:44 01/09/20 24 Allergy Immunotherapy Injections completed RACH HIGGINS RMA [address], [place], [address], [place] [facility] 01/09/2024 14:20:54 01/05/20 24 Allergy Immunotherapy Injections completed RACH HIGGINS RMA [address], [place], [address], [place] [facility] 01/05/2024 09:57:45 12/26/19 24 Allergy Immunotherapy Injections completed TONI GALINDOA [address], [place], [address], [place] [facility] 12/26/2023 15:50:59 12/19/19 24 Allergy Immunotherapy Injections completed ELLE CHATMAN RN [address], [place], [address], [facility] - [facility] 12/19/2023 16:43:24 12/05/19 24 Allergy Immunotherapy Injections completed SAL GALINDO [address] [place] [address], [address], [facility] - [facility] 12/05/2023 16:12:33 11/29/19 24 Allergy Immunotherapy Injections completed RACH HIGGINS, [facility] [address], [address], [facility] - [facility] 11/29/2023 17:05:00 11/21/19 24 Allergy Immunotherapy Injections completed RACH HIGGINS, [facility] [address] [place] [address], [address], [facility] - [facility] 11/21/2023 15:51:07 11/20/19 24 Telehealth completed MAGO CAZARES PA-C [address] [facility] [employer],[address] [place] [address], [address], [facility] - [facility] 11/20/2023 09:23:48 11/16/19 24 Allergy Immunotherapy Injections completed CARY GONZALES [facility] [address] [facility] [employer],[address] [place] [address], [address], [facility] - [facility] 11/16/2023 15:52:45 11/08/19 24 Allergy Immunotherapy Injections completed RACH HARRISONPACHECO, [facility] 100 [facility],[address], [address], [facility] - [facility] 11/08/2023 16:32:04 Imaging Results None recorded. Procedure Notes None recorded. Medical Equipment None Reported. Allergies Allergen ID Allergen Name Allergen Category Reaction Reaction Severity Criticality Documentation Date Start Date Code Code System Note Provider Name and Address Organization Details Recorded Time 928421 amoxicill in medicatio n other Not available Not available 10/31/2023 723 RxNorm React ion: unkno wn, unspe cifie d;; Not Available [facility] 01:26[facility]29 Medications Name Sig Start Date [...] mg tablet 07/02 completed Medicati on ID: [id number] R hoa: () Brand Name: Zoloft S [...] e 137 mcg (0.1 %) nasal spray [place] 2 sprays twice a day by intranas al route for 90 days. 2024 active Not Available Not Available Not Avai lable epinephri ne 0.3 mg/0.3 mL injection , auto-inje ctor Inject 1 pen injector single dose as needed 2023 active Not Available Not Available Not Avai lable polyethyl kae glycol 3350 17 gram/dose oral powder 05/09 completed Medicati on ID: [id number] D uration Value: 7 Brand Name: polyethy [...] Diagnosis Note 1220 ADRIANE MUNGUIA MD Allergy [address] [place] [address] DIRK ROGEL [address] 11/08/2023 16:25:39 11/08/2023 16:41:51 Perennial allergic rhinitis [id number] J30.89 2141 CARY GONZALES [facility] Allergy 100 [facility],[address] [place] [address] 11/16/2023 15:49:56 11/16/2023 16:13:57 Perennial allergic rhinitis [id number] J30.89 1750 ADRIANE MUNGUIA MD [facility] [place] [address] [facility] [place] [address] 11/20/2023 09:08:47 11/20/2023 12:24:36 Allergic rhinitis [id number] J30.89 2765 [facility], [facility] Allergy 100 [facility],[address] [place] [address] 11/21/2023 15:42:39 11/21/2023 15:56:49 Perennial allergic rhinitis [id number] J30.89 3847 [facility], [facility] Allergy [address] [place] [address], [address] [place] [address] 11/29/2023 17:03:35 11/29/2023 17:30:37 Perennial allergic rhinitis [id number] J30.89 4601 CARY GONZALES [facility] Allergy [address] [place] [address], [address] [place] [address] 12/05/2023 15:42:32 12/05/2023 16:15:18 Perennial allergic rhinitis [id number] J30.89 6404 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 [address] [place] [address], [address] [place] [address] 12/19/2023 16:32:38 12/19/2023 16:44:57 Perennial allergic rhinitis [id number] J30.89 7147 CARY GONZALES [facility] Allergy [address] [place] [address],[address] [place] [address] 12/26/2023 15:43:58 12/27/2023 11:12:10 Perennial allergic rhinitis [id number] J30.89 8622 [facility], A Allergy 100 [facility],[address] [place] [address] 01/05/2024 09:25:36 01/15/2024 11:18:45 Perennial allergic rhinitis 550369684 J30.89 9128 [facility], RMA Allergy [facility] [employer],[address] [place] [address] 01/09/2024 14:14:43 01/09/2024 14:30:56 Perennial allergic rhinitis 884439374 J30.89 68035 CARY GONZALES A Allergy 100 [facility],[address] [place] [address] 01/24/2024 16:44:18 01/25/2024 11:44:33 Perennial allergic rhinitis 346837791 J30.89 97334 [facility], RMA Allergy 100 [facility],[address] [place] [address] 01/31/2024 16:43:53 01/31/2024 16:47:47 Perennial allergic rhinitis 739862261 J30.89 23092 [facility], RMA Allergy 100 [facility],[address] [place] [address] 02/09/2024 14:14:10 02/09/2024 14:21:50 Perennial allergic rhinitis 409613513 J30.89 49076 CARY GONZALES A Allergy 100 [facility],[address] [place] [address] 02/16/2024 11:37:33 02/16/2024 11:41:23 Perennial allergic rhinitis [id number] J30.89 56339 CARY GONZALES A Allergy 100 [facility],[address] [place] [address] 02/21/2024 17:03:57 02/21/2024 17:18:03 Perennial allergic rhinitis 558217679 J30.89 [id number] CARY GONZALES A Allergy [address] [facility],[address] [place] [address] 03/06/2024 16:52:37 03/06/2024 17:15:08 Perennial allergic rhinitis 196184483 J30.89 24869 CARY GONZALES [facility]ergy [facility] [employer],[address] [place] [address] 03/12/2024 16:58:15 03/25/2024 18:03:35 Perennial allergic rhinitis 299247412 J30.89 97371 RACH MEÑO, A Allergy 100 [facility],[address] [place] [address] 03/19/2024 16:16:58 03/19/2024 16:18:41 Perennial allergic rhinitis [id number] J30.89 53461 RACH WILDER, A Allergy 100 [facility],[address] [place] [address] 03/27/2024 17:10:52 03/27/2024 17:12:05 Perennial allergic rhinitis 306858257 J30.89 [id number] CARY GONZALES [facility] Allergy [address] [place] [address],[address] [place] [address] 04/03/2024 16:53:01 04/03/2024 17:21:14 Perennial allergic rhinitis [id number] J30.89 [id number] ELLE CHATMAN RN Allergy [address] [place] [address],[address] [place] [address] 04/10/2024 16:16:30 04/10/2024 16:18:14 Perennial allergic rhinitis [id number] J30.89 [id number] [facility] All[facility] [address] [place] [address],[address] [place] [address] 04/17/2024 16:47:18 04/17/2024 16:49:05 Perennial allergic rhinitis 054014449 J30.89 [id number] ELLE CHATMAN RN Allergy [address] [place] [address],[address] [place] [address] 05/01/2024 16:19:15 05/01/2024 16:20:47 Perennial allergic rhinitis [id number] J30.89 [id number] CARY GONZALES [facility] Allergy 100 [facility],[address] [place] [address] 05/10/2024 13:55:19 05/10/2024 13:56:55 Perennial allergic rhinitis [id number] J30.89 55350 RACH MEÑO, A Allergy 100 [facility],[address] [place] [address] 05/14/2024 15:51:59 05/14/2024 15:53:12 Perennial allergic rhinitis [id number] J30.89 13946 ELLE CHATMAN RN Allergy [address] [place] [address], [address] [place] [address] 05/30/2024 16:24:19 05/30/2024 16:26:46 Perennial allergic rhinitis [id number] J30.89 50079 [facility], [facility] Allergy [address] [place] [address], [address] [place] [address] 06/10/2024 11:58:14 06/10/2024 11:59:43 Perennial allergic rhinitis [id number] J30.89 [id number] CARY GONZALES [facility] Allergy [address] [place] [address], [address] [place] [address] 06/26/2024 17:06:19 06/26/2024 17:28:11 Perennial allergic rhinitis [id number] J30.89 52916 [facility] Allergy [address] [place] [address] [address] [place] [address] 07/03/2024 13:24:02 07/03/2024 13:25:23 Perennial allergic rhinitis [id number] J30.89 [id number] ELLE CHATMAN RN Allergy [address] [place] [address] [address] [place] [address] 07/17/2024 16:56:23 07/17/2024 17:03:56 Perennial allergic rhinitis [id number] J30.89 40572 CARY GONZALES [facility] Allergy [address] [place] [address] [address] [place] [address] 08/07/2024 16:44:26 08/07/2024 17:00:12 Perennial allergic rhinitis [id number] J30.89 [id number] [facility], [facility] Allergy [address] [place] [address], [address] [place] [address] 08/23/2024 14:31:46 08/23/2024 14:33:19 Perennial allergic rhinitis [id number] J30.89 [id number] ADRIANE MUNGUIA MD [facility] - [place] [address] [place] [address] [place] [address] 09/02/2024 15:25:05 09/02/2024 15:28:49 Allergic rhinitis 23929373 J30.9 Nasal congestion 7503411 0 R09.81 [id number] ELLE CHATMAN RN [facility] [place] [address] 09/04/2024 16:09:27 09/04/2024 16:11:01 Perennial allergic rhinitis [id number] J30.89 Health Concerns Section Related Observation LastModified by Organization Detai ls LastModified Time None Recorded Concern Status LastModified by Organization Details LastModified Time None Recorded Advance Directives Directive None Recorded Payers Encounter Date Sequence Insurance Name Policy Number Policy Koenig Covered Member ID Koenig Member ID Guarantor Name 07/17/2024 1 [employer] [facility]) [id number] Bon Ra [id number] Bon Ra 08/07/2024 1 [facility] [id number] Bon Ra [id number] Bon Ra 08/23/2024 1 [facility] [place] [id number] Bon Ra [id number] Bon Ra 09/02/2024 1 [facility] [place] [id number] Bon Ra [id number] Bon Ra 09/04/2024 1 [facility] [place] [id number] Bon Ra [id number] Bon Ra Notes Date Note Type Note Provider Name and Address Organization Details Recorded Time 09/02/2024 text/html 34-year-old male presents for 6-month allergy review. He continues immunotherapy and is on biweekly injection. Overall doing well but needs refill on azelastine. Has been having some asthma flare but admits this is because he has not been taking his daily inhaler. ADRIANE MAYFIELD MD 100 [facility],[address], [address], [facility] - [facility] 09/02/2024 16:37:08
== END 2024-09-06 13:21 | disposition home or self-care (01) ==
LOC: HO.HPSW 12:53
PROVIDERS: PCP Family Medicine; Visit Provider Nurse Practitioner Family
DX: J45.909 Unspecified asthma, uncomplicated (principal); J30.9 Allergic rhinitis, unspecified
CPT/HCPCS: 99214

== ENCOUNTER 2024-09-13 11:48 | Outpatient (AMB) | payer OTHER, SELFPAY ==
[2024-09-13 11:57] VITALS: BMI 36.9
--- NOTE | 2024-09-13 11:57 | MHC.OFFVIS ---
Vital Signs 09/13/24 11:57 Height 5 ft 9 in Weight 250 lb BMI 36.9 Intake Visit Reasons: Left Sprint removal Growth Hacker Required: No Accompanied by: Self / Same As Patient Allergies Seasonal Allergies Allergy (Intermediate, Verified 09/13/24 11:58) Cough amoxicillin Allergy (Unknown, Verified 09/13/24 11:58) Rash HPI Comments Details: Bon presents back to the office today for follow-up, removal of Left T5 sprint peripheral nerve stimulator He reports 60% pain relief since placement of the device Denies untoward effects Continues with muscle relaxer, topical ointment, Tylenol and ibuprofen as needed Prior visit with Chhaya EQUALIZER OPERATOR: Patient presents today for right T5 Sprint removal and left T5 Sprint dressing change. Patient reports 50-60% ongoing pain relief with improvement in daily functioning, mobility, and sleep. Patient reports positive paresthesia on the left side with stimulation ranging in 50s and on the right side stimulation ranging 60s to 70s. Patient denies any untoward effects of Sprint device therapy. Left T5 Sprint was placed on 07/18/24. The dressings were removed today. Lead insertion sites look clean, dry, intact, no redness or swelling, no pathological discharge. Right lead pulled with tip intact. Lead and surrounding areas were cleansed with Chloraprep and covered with Bacitracin and dressing. Dressing was changed for left side. Denies any recent cough, cold, infection, fever or any significant changes in medical history since last office visit. PRIOR with Edna MANSFIELD 07/12/24: Bon presents back to the office today for follow up, 1 week s/p right T5 Sprint PNS placement He endorses 60% pain relief with improvement in function and mobility. Pain relief was better than 60% but he has started back at the gym which has exacerbated his symptoms Denies any untoward effects off the device Plan for left side placement next week Prior Visit with Dr. Lunsford: s/p therese Leanne MBB: Details: 33-year-old male who presents today to the office for status post bilateral diagnostic medial branch block. The patient reports 100% of diagnostic relief following the procedure for two days. He visited [place] last weekend and denies any pain during the stay and traveling. He states that his pain has been returning to baseline this morning. Yesterday his pain was down to 1-3/10 in intensity, which became 7/10 in intensity this morning. He suspects that it might be due to improper sleep position, which aggravated his pain. He sleeps in a prone position but is trying to sleep on his sides. He is doing Yoga at home. He has [employer] insurance. Past procedure 07/04/24: Right T4 Sprint PNS: 60% pain relief after 1 week 03/21/24: Thoracic Medial Branch Block, Bilateral, T5, T6, T7 medial branches: 100% diagnostic relief for two days. [facility] Social History Patient Tobacco Use Status: Never used Tobacco Review of Systems Const All systems reviewed & are unremarkable except as noted in HPI and below Physical Exam Vital Signs: BMI result Body Mass Index 36.9 General: awake, alert, oriented. Answers questions appropriately. Fully engaged in examination. Skin: warm, dry, intact HEENT: Normocephalic. Hearing intact. Cardiac: External chest normal in appearance. Respiratory: No cough, audible wheezing or stridor. Abdomen: without gross distension. MS: No obvious swelling or deformities. Neurological: Oriented to person, place, time and situation. Thought process intact. No gait abnormalities appreciated. Psychiatric: Appropriate mood and affect. Good judgment and insight. Sprint removal: Dressing removed, Site dry, clean, intact. Area cleansed with chloraprep, lead removed with intact tip. Area cleansed again with chloraprep, bacitracin dressing with tegaderm applied. Patient tolerated removal well. Results Reviewed Results Reviewed: 01/25/24: MR SPINE THORACIC WO CON. Assessment & Plan Assessment & Plan (1) Thoracic spondylosis: Code(s): M47.814 - Spondylosis without myelopathy or radiculopathy, thoracic region Category: Medical (2) Thoracic back pain: Code(s): M54.6 - Pain in thoracic spine Category: Medical Plan Patient presents back to the office today for follow up, removal of left T5 medial branch Sprint nerve stimulator Endorses 60% pain relief with improvement in functional mobility. Denies any untoward effects Lead removed as per above. Patient tolerated well If pain returns or worsens patient will call the office. We discussed therapeutic injections, RFA, chronic peripheral nerve stimulation implant and PRP injections. We will plan for PRP injections as next step if pain persists. All questions and concerns were answered, patient agrees with the plan. Follow-up if pain returns or worsens, sooner if needed Coding Level of Care Code Est Pt Level 3 (92357) Complex EM visit Add On G2211 Diagnoses Thoracic spondylosis M47.814 Thoracic back pain M54.6
== END 2024-09-13 12:35 | disposition home or self-care (01) ==
LOC: HO.PMC 11:49
PROVIDERS: PCP Family Medicine; Visit Provider Registered Nurse Emergency
DX: M47.814 Spondylosis without myelopathy or radiculopathy, thoracic region (principal); M54.6 Pain in thoracic spine
CPT/HCPCS: 99213

== ENCOUNTER → 2024-09-13 11:48 | Outpatient (BNVA) | payer OTHER, SELFPAY | PROVIDERS: PCP Family Medicine; Visit Provider Registered Nurse Emergency ==

== ENCOUNTER 2024-10-11 12:55 | Outpatient (AMB) | payer OTHER, SELFPAY ==
--- NOTE | 2024-10-11 12:59 | MHC.OFFVIS ---
Vital Signs 10/11/24 13:00 Height 5 ft 9 in Weight 253 lb BMI 37.4 Pulse 80 Pulse Oximetry (%) 97 Oxygen Delivery Method Room Air Intake Visit Reasons: Asthma Event Staff Member Required: No Reverberatory Furnace Operator: Reverberatory Furnace Operator offered & declined Accompanied by: Self / Same As Patient Allergies Seasonal Allergies Allergy (Intermediate, Verified 10/11/24 13:02) Cough amoxicillin Allergy (Unknown, Verified 10/11/24 13:02) Rash Medication List - Last Reconciled 10/11/24 by Mary Hernandez LPN albuterol sulfate 90 mcg/actuation 2 puffs inhalation Q4-6H PRN 90 days baclofen 10 mg PO TID celecoxib (Celebrex) 100 mg PO BID chlorzoxazone 250 mg PO TID cream base no.105 (bulk) (Base W301 cream) SIG: apply pea-sized amount 3-5 times daily to painful areas as needed ; Diclofenac 5%, Baclofen 5%, Cyclobenzaprine 2%, Gabapentin 6%, Bupivacaine 2%; emtricitabine-tenofovir (TDF) 200-300 mg 1 tab PO DAILY epinephrine 0.3 mg IM Q4H PRN fluticasone propionate 50 mcg/actuation 2 sprays intranasal DAILY ssdfdvjeqqq-vveukzrgg-tfvckzex 200-62.5-25 mcg (Trelegy Ellipta) 1 inh inhalation DAILY ibuprofen mg PO 3XD ketoconazole 2% 1 appl topical .QOD PRN lamotrigine (Lamictal) 100 mg PO DAILY lamotrigine 200 mg PO BID montelukast (Singulair) 10 mg PO BEDTIME omeprazole mg PO DAILY oxcarbazepine 300 mg PO TID quetiapine 50 mg PO BEDTIME tirzepatide (weight loss) (Zepbound) mg subcut HPI HPI Asthma: Details: Bon is a very pleasant 34 year old male, never tobacco smoker, with underlying asthma since childhood. Previously he reported significant improvement with Trelegy in addition to Singulair and albuterol/air supra MDI. However, shortly after the last visit symptoms became less controlled with persistent dry cough minimally responsive to treatment with associated wheezing. He denies symptoms suggestive of underlying infectious process. He continues to undergo allergen immunotherapy bimonthly with moderate effect through ENT, but may still have an allergic trigger contributing to worsening symptoms. He was trialed on prednisone 40 mg x 5 days which he completed and noted a decrease in cough but developed adverse effects to prednisone and would like to avoid this in the future. He also underwent chest CT through [facility] which was reviewed without significant findings however waiting for final read from Radiology. [facility] Social History Patient Tobacco Use Status: Never used Tobacco Review of Systems Const Denies chills, Denies excessive sweating, Denies fever(s), Denies headache(s) and Denies night sweats Eyes Denies dry eyes and Denies irritation ENT Reports Normal hearing present, Denies headache(s), Denies nasal congestion, Denies nasal discharge, Reports post nasal drip and Denies sore throat Card Denies chest pain, Denies chest pain at rest, Denies chest pain with activity, Denies claudication, Denies leg edema, Denies orthopnea and Denies paroxysmal nocturnal dyspnea Resp Denies change in phlegm color, Denies chest congestion, Reports cough, Denies hemoptysis, Denies excessive phlegm production, Denies pain on inspiration, Denies pain with cough, Denies stridor and Reports wheezing Musc Denies myalgias Neuro Reports Normal hearing present and Denies headache(s) Endo Denies excessive sweating Jeanmarie/Lymph Denies lymphadenopathy Aller/Immun Reports wheezing Physical Exam Vital Signs: Last Vital Signs Pulse 80 10/11/24 13:00 Pulse Ox 97 10/11/24 13:00 Oxygen Delivery Method Room Air 10/11/24 13:00 BMI result Body Mass Index 37.4 Const General: cooperative, healthy appearing, comfortable, no acute distress, well developed and alert Nutritional Appearance: obese Orientation/consciousness: patient oriented x3 Limitations: no limitations HEENT Head: Yes normal to inspection, Yes normocephalic and Yes atraumatic Ears: hearing grossly normal bilaterally and external ears normal Eyes General: appearance normal, both eyes and all related structures Eyelids: Yes eyelids normal Sclerae: sclerae normal EOM: EOMs intact bilaterally Neck Neck: Yes normal visual inspection and Yes no lymphadenopathy Lymphatic: no lymphadenopathy noted Chest Chest palpation & inspection: normal inspection of the chest Resp Other: Persistent dry cough throughout beginning of visit with post exhalation cough with respiratory exam, resolved with DuoNeb Effort & Inspection: normal respiratory effort, able to speak in complete sentences, no audible wheezes, no stridor, not tachypneic, no tripod positioning and no use of accessory muscles Auscultation: diminished lung sounds Cardio Jugular venous distension: no JVD Rate: regular rate Rhythm: regular rhythm Skin Other: warm, dry General skin exam: no rashes or lesions noted Neuro General: patient oriented x3 Cranial nerves: Yes Normal hearing present Cognition (Neuro): normal cognition Gait exam (Neuro): Normal gait present Extrem General: Yes normal to inspection, Yes capillary refill normal, Yes no clubbing, cyanosis or edema and Yes no pedal edema Psych Appearance: grossly normal and well kempt Speech and movement: Normal speech and movement present and Clear speech present Affect: normal affect Attitude: cooperative Thought process: Normal thought process present Thought content: Normal thought content present Insight: Good insight present (Psych) Judgement: Good judgement present (Psych) Office Procedures Nebulizer Treatment Nebulizer Treatment [id number]-Iknoohpjg/MDI RX initial, or Nebulizer Subsequent Treatment Office Meds ipratropium 0.5 mg-albuterol 3 mg (2.5 mg base)/3 mL nebulization soln Performing Provider: Adeola Perkins NP [place] [facility] [place] [facility] Administered by: Mary Hernandez LPN on 10/11/24 13:34 Dose Route Admin Location Dispensed Lot Number Expiration Date [facility] [employer] 3 mL inhalation 3 mL [id number] 09/16/25 05458-737-91 [employer] Assessment & Plan Assessment & Plan (1) Asthma: Code(s): J45.909 - Unspecified asthma, uncomplicated Category: Medical (2) Chronic allergic rhinitis: Code(s): J30.9 - Allergic rhinitis, unspecified Category: Medical Plan Bon presents with worsening respiratory controlled despite Trelegy, Singulair, air supra MDI, allergen immunotherapy, antihistamines and Flonase. Will trial ipratropium nasal spray to see if there is improvement with postnasal drip which may be contributing to cough. Will also send for updated labs to assess candidacy for biologic. Consider referral to farmworker fruit for further evaluation. Will repeat PFT as prior was from 2020. Will await final read from chest CT through [facility]. Cough seemed to resolve with the use of DuoNeb, nebulizer for home use given in office today and DuoNeb sent. Encouraged daily use of nebulizer. All questions were answered and patient is in agreement of plan. Will follow up to review results or sooner if needed. Orders: Orders Resp Allergy Profile Region I 10/11/24 Z91.09 - Other allergy status, other than to drugs and biological substances Complete Blood Count Auto Diff 10/11/24 Z91.09 - Other allergy status, other than to drugs and biological substances AMB Nebulizer Treatment 10/11/24 J45.909 - Unspecified asthma, uncomplicated Immunoglobulin E 10/11/24 Z91.09 - Other allergy status, other than to drugs and biological substances PFT pulmonary function test 10/11/24 R05.3 - Chronic cough Medications: New ipratropium-albuterol 0.5 mg-3 mg(2.5 mg base)/3 mL 3 mL inhalation Q6H PRN 180 mL 2RF wheezing ipratropium bromide administer into each nostril 1 spray intranasal BID 30 mL 0RF Coding Level of Care Code Est Pt Level 4 (55853) Diagnoses Asthma J45.909 Chronic allergic rhinitis J30.9 CPT Codes Nebulizer Treatment - Nebulizer Treatment, initial or subsequent: [id number]/MDI RX initial, or Nebulizer Subsequent Treatment ([id number])
[2024-10-11 13:00] VITALS: PULSE 80; O2SAT 97; BMI 37.4
--- OUTSIDE RECORDS SUMMARY | 2024-10-11 13:38 | XMS_ITS | Patient Health Record ---
Author Organization [facility] Address [address] [place] [address] Care Team Providers Care Charter Driver Name Role Phone COURTNEY SIMS Unavailable [phone] ALLERGIES Allergen (clinical drug ingredient) Drug/Non Drug [...] due to excess calories (E66.09) Active confirmed 800882288 Problem Other obesity (E66.8) Active confirmed Obesity (042833684) Problem Eating disorder, unspecified (F50.9) Active confirmed Eating disorder (68335548) Problem Morbid obesity (E66.01) Active confirmed 093440649 Problem BMI 40.0-44.9, adult (Z68.41) Active confirmed Body mass index 40+ - morbidly obese (580434513) Problem Body mass index [BMI] 38.0-38.9, adult (Z68.38) Active confirmed 631792802 Problem Obesity (BMI 35.0-39.9 without comorbidity) (E66.9) Active confirmed 043429356 Problem Adult BMI 37.0-37.9 kg/sq m (Z68.37) Active confirmed 781769775 Problem Body mass index [BMI] 40.0-44.9, adult (Z68.41) Active confirmed 122219431 Problem Bipolar affective disorder, current episode manic, current episode severity unspecified (F31.10) Active confirmed Manic bipolar I disorder (38839463) Encounters Encounter Location Date Provider Diagnosis [place] [address] [address] 01/30/2024 COURTNEY SIMS PLAN OF TREATMENT No Information Insurance Providers Payer Name Payer Address Payer Phone Subscriber Number Group Number Insured Name Patient Relationship to Insured Coverage Start Date Coverage End Date [facility] [address] [place] [address] [id number] Bon Knapp Self - patient is the insured 1 MEDICAL (GENERAL) HISTORY Medical History History ICD Code asthma Surgical History Surgery Date(Month/Year) wisdom teeth extraction 2010
--- OUTSIDE RECORDS SUMMARY | 2024-10-11 13:38 | XMS_ITS ---
Author Organization [facility] Address [address] [place] [address] Care Team Providers Care New Product Trainer Name Role Phone COURTNEY SIMS Unavailable [phone] REASON FOR VISIT record request Encounters Encounter Location Date Provider Diagnosis [facility] [address] [facility] [address] [place] [address] 01/30/2024 COURTNEY SIMS PLAN OF TREATMENT No Information Progress Notes * Bon BARTONDOB:[birth year] (33 yo M)Acc No.[id number]:01/30/2024 Patient:??Bon BARTON :1990?Age:33 Y?Sex:Meri castro Address:[address] , [place] [address] * true * Date:??
--- OUTSIDE RECORDS SUMMARY | 2024-10-11 13:38 | XMS_ITS | Clinical Summary ---
Author Organization [facility] Address [address] [place] [address] Phone Care Team Providers Care Cut [employer] [place] [place] Name Role Phone Gonzalez Sparks MD Primary Care Provider [phone] Allergies Active Allergy Reactions Criticality Noted Date Comments Amoxicillin 04/28/2023 Social History Tobacco Use Types Packs/Day Years [...] - 2023-2 5 season) 2024 Influenza Vaccine (Season Ended) 2025 HIB Vaccines Aged Out No longer eligi [...] age to complete this topic Meningococcal B Vaccine Aged Out No l onger eligible based on patient's age to complete [...] patient's age to complete this topic [place] [address] [place] [address] OLIVIA RIOS [id number] Care Teams [employer] [place] Relationship Specialty Start Date End Date Gonzalez Sparks MD [address] [facility] [address] [place], [place] PCP - General 04/19/23
--- OUTSIDE RECORDS SUMMARY | 2024-10-11 13:39 | XMS_ITS | Data Portability ---
Author Organization [place] [facility], Allergy Address [address] [place] [id number] Assessment Encounter Date Assessment Date Assessment LastModified [...] 6 months. gala Not available 09/02/2024 15:27:43 09/04/2024 09/04/2024 Visit [...] ? ? [email or web address] Not available 09/04/2024 16:10:14 09/20/2024 09/20/2024 Visit With: SAL Nugent Use of Antihistamine s: No If yes: Vial Test Change in medications: No If yes ? ? ? Increase in asthma symptoms If yes, inhaler use: Reaction to last injections: No If yes: ? ? ? Allergy Symptoms: Other: ? ? ? Missed: Dose Aware of Vial Test Notes:? ? ? mary joc Not available 09/20/2024 13:47:54 10/04/2024 10/04/2024 Visit With: SAL Nugent Use of Antihistamine s: No If yes: Vial Test Change in medications: No If yes ? ? ? Increase in asthma symptoms If yes, inhaler use: Reaction to last injections: No If yes: ? ? ? Allergy Symptoms: Other: ? ? ? Missed: Dose Aware of Vial Test Notes:? ? ? [email or web address] Not available 10/04/2024 11:59:09 Plan of Treatment Reminders Order Date Submit Date Provider Last Modified By Organization Details Last Modified Time Details Appointments None recorded. Lab None recorded. Referral None recorded. Procedures None recorded. Surgeries None recorded. Imaging None recorded. Medication Orders azelastine 137 mcg (0.1 %) nasal spray 2024 025 [facility]) #[id number], [address], [place], [phone], 5 15:28:16 Patient TargetsNo targets recorded. Patient InstructionsNo instructions recorded. Reason for Referral None Reported. Problems Name Problem SNOMED Code Status Onset Date Resolution Date Notes Provider Name and Address Organization Details Recorded Time Posterior rhinorrhe a 95237485 Active 2017 Postnasal drip; Note: Date Diagnosed: 05/04/2018 11:24 AM (R09.82) Not Available [facility] 4 03:23:27 Allergic rhinitis 22021828 Active 2023 Allergic rhinitis: Due to other [...] 4:22 PM (477.8) Note: Gagan Not Available [facility] 4 01:27:26 Peritonsi llar abscess 20572506 Active 2015 Peritonsil lar abscess; Note: Date Diagnosed: 03/14/2016 4:15 PM (J36) Not Available [facility] 4 03:23:27 Nasal congestio n 56011008 Active 2017 Nasal congestion ; Note: Date Diagnosed: 05/04/2018 11:24 AM (R09.81) Not Available [facility] 4 03:23:27 Seasonal allergic rhinitis 087982455 Active 2018 Other seasonal allergic rhinitis; Note: Date Diagnosed: 07/16/2018 10:13 AM (J30.2) Not Available [facility] 4 03:23:27 Perennial allergic rhinitis 343422859 Active [address] [facility], [address],[place] [address], [place], [address] , [place] - [facility] [place] 16:31:36 Problem Notes None recorded. Procedures Surgical History Date Name Laterality Status Provider Name and Address Organization Details Recorded Time 10/05/19 25 Allergy Immunotherapy Injections completed RACH WILDERC, RMA [address],[place] [address], [place], [address], [place] [facility] [place] 10/04/2024 11:59:04 09/21/19 25 Allergy Immunotherapy Injections completed RACH HIGGINS, RMA [address],[place] [address], [place], [address], [place] [facility] 09/20/2024 13:47:49 09/05/19 25 Allergy Immunotherapy Injections completed ELLE CHATMAN RN [address],[place] [address] [place] [address], [address], [place] [facility] 09/04/2024 16:10:03 08/24/19 25 Allergy Immunotherapy Injections completed RACH HIGGINS RMA [address],[place] [address] [place] [address], [address], [place] [facility] 08/23/2024 14:32:54 08/07/19 25 Allergy Immunotherapy Injections completed ASL GALINDO [address],[place] [address] [place] [address], [address], [place] [facility] 08/07/2024 16:52:59 07/17/19 25 Allergy Immunotherapy Injections completed ELLE CHATMAN RN [address] [facility] [place],[address], [address], [place] [facility] 07/17/2024 17:03:31 07/03/19 25 Allergy Immunotherapy Injections completed RACH HIGGINS RMA [address] [place] [address], [address], [place] [facility] 07/03/2024 13:24:50 06/26/19 25 Allergy Immunotherapy Injections completed SAL GALINDO [address],[place] [address], [place], [address], [place] [facility] 06/26/2024 17:24:00 06/10/20 24 Allergy Immunotherapy Injections completed RACH HIGGINS, RMA [address], [place], [address], [place] [facility] 06/10/2024 11:59:19 05/30/20 24 Allergy Immunotherapy Injections completed ELLE CHATMAN RN [address], [place], [address], [place] [facility] 05/30/2024 16:26:26 05/14/20 24 Allergy Immunotherapy Injections completed RACH HIGGINS RMA [address], [place], [address], [place] [facility] 05/14/2024 15:52:38 05/10/20 24 Allergy Immunotherapy Injections completed SAL GALINDO [address],[place] [address], [place], [address], [place] [facility] 05/10/2024 13:56:20 05/01/20 24 Allergy Immunotherapy Injections completed ELLE CHATMAN RN [address] [place] [address], [address], [place] [facility] 05/01/2024 16:20:08 04/17/20 24 Allergy Immunotherapy Injections completed RACH HIGGINS RMNatasha [address],[place] [address], [place], [address], [place] [facility] 04/17/2024 16:48:38 04/10/20 24 Allergy Immunotherapy Injections completed ELLE CHATMAN RN [address] [place] [address], [address], [place] [facility] 04/10/2024 16:17:42 04/03/20 24 Allergy Immunotherapy Injections completed SAL GALINDO [address],[place] [address], [place], [address], [place] [facility] 04/03/2024 17:19:19 03/27/20 24 Allergy Immunotherapy Injections completed RACH HIGGINS RMA [address], [place], [address], [place] [facility] 03/27/2024 17:11:33 03/19/20 24 Allergy Immunotherapy Injections completed RACH HIGGINS RMA [address], [place], [address], [place] [facility] 03/19/2024 16:18:00 03/12/20 24 Allergy Immunotherapy Injections completed TONI GALINDOA [address], [place], [address], [place] [facility] 03/12/2024 16:59:58 03/06/20 24 Allergy Immunotherapy Injections completed TONI GALINDOA [address], [place], [address], [place] [facility] 03/06/2024 16:53:38 02/21/20 24 Allergy Immunotherapy Injections completed TONI GALINDOA [address], [place], [address], [place] [facility] 02/21/2024 17:06:21 02/16/20 24 Allergy Immunotherapy Injections completed TONI GALINDOA [address], [place], [address], [place] [facility] 02/16/2024 11:38:32 02/09/20 24 Allergy Immunotherapy Injections completed RACH HIGGINS RMA [address], [place], [address], [place] [facility] 02/09/2024 14:15:11 01/31/20 24 Allergy Immunotherapy Injections completed RACH HIGGINS RMA [address], [place], [address], [place] [facility] 01/31/2024 16:45:20 01/24/20 24 Allergy Immunotherapy Injections completed CARY GONZALES RMA [address], [place], [address], [place] [facility] 01/24/2024 16:54:44 01/09/20 24 Allergy Immunotherapy Injections completed RACH HIGGINS RMA [address], [place], [address], [place] [facility] 01/09/2024 14:20:54 01/05/20 24 Allergy Immunotherapy Injections completed RACH HIGGINS, RMA [address], [place], [address], [place] [facility] 01/05/2024 09:57:45 12/26/19 24 Allergy Immunotherapy Injections completed TONI GALINDOA [address], [place], [address], [place] [facility] 12/26/2023 15:50:59 12/19/19 24 Allergy Immunotherapy Injections completed ELLE CHATMAN RN [address], [place], [address], [place] [facility] 12/19/2023 16:43:24 12/05/19 24 Allergy Immunotherapy Injections completed TONI GALINDOA [address], [place], [address], [place] [facility] 12/05/2023 16:12:33 11/29/19 24 Allergy Immunotherapy Injections completed RACH HIGGINS, RMA [address] [place] [address], [address], [facility] - [facility] [place] 11/29/2023 17:05:00 11/21/19 24 Allergy Immunotherapy Injections completed RACH HIGGINS RMA [address],[place] [address], [place], [address], [facility] - [facility] [place] 11/21/2023 15:51:07 11/20/19 24 Telehealth completed MAGO CAZARES PA-C [address], [place], [address], [facility] - [facility] [place] 11/20/2023 09:23:48 11/16/19 24 Allergy Immunotherapy Injections completed CARY GONZALES RMA [address], [place], [address], [place] [facility] 11/16/2023 15:52:45 11/08/19 24 Allergy Immunotherapy Injections completed RACH HIGGINS, RMA [address], [place], [address], [place] [facility] 11/08/2023 16:32:04 Imaging Results None recorded. Procedure Notes None recorded. Medical Equipment None Reported. Allergies Allergen ID Allergen Name Allergen Category Reaction Reaction Severity Criticality Documentation Date Start Date Code Code System Note Provider Name and Address Organization Details Recorded Time 893367 amoxicill in medicatio n other Not available Not available 10/31/2023 723 RxNorm React ion: unkno wn, unspe cifie d;; Not Available [facility] 4 01:26:29 Medications Name Sig Start Date [...] mg tablet 07/02 completed Medicati on ID: [id number] R hoa: () Brand Name: Zoloft S [...] e 137 mcg (0.1 %) nasal spray [place] 2 sprays twice a day by intranas al route for 90 days. 2024 active Not Available Not Available Not Avai lable epinephri ne 0.3 mg/0.3 mL injection , auto-inje ctor Inject 1 pen injector single dose as needed 2023 active Not Available Not Available Not Avai lable polyethyl kae glycol 3350 17 gram/dose oral powder 05/09 completed Medicati on ID: [id number] D uration Value: 7 Brand Name: polyethy [...] Code Diagnosis ICD10 Code Diagnosis Note 1220 CARY GONZALES [facility] Allergy [address] [place], [place] [address] [address] [place] [address] 11/08/2023 16:25:39 11/08/2023 16:41:51 Perennial allergic rhinitis 817529569 J30.[address] [facility] All[facility] [address] [place] [address] it[address] [place] [address] 11/16/2023 15:49:56 11/16/2023 16:13:57 Perennial allergic rhinitis 703135550 J30.89 2370 MAGO CAZARES [facility]-C [facility] [address] [place] [address], [place] [address] 11/20/2023 09:08:47 11/20/2023 12:24:36 Allergic rhinitis 00709850 J30.[address] [facility] [address] [place] [address] it[address] [place] [address] 11/21/2023 15:42:39 11/21/2023 15:56:49 Perennial allergic rhinitis 309863061 J30.[address] [facility] All[facility] [address] [place] [address] it[address] [place] [address] 11/29/2023 17:03:35 11/29/2023 17:30:37 Perennial allergic rhinitis 621587879 J30.[address] [facility] All[facility] [address] [place] [address] ite [address] [place] [address] 12/05/2023 15:42:32 12/05/2023 16:15:18 Perennial allergic rhinitis 876258594 J30.89 6404 ELLE CHATMAN RN Allergy [address] [place], [place] [address] [address] [place] [address] 12/19/2023 16:32:38 12/19/2023 16:44:57 Perennial allergic rhinitis 462503492 J30.89 7147 CARY GONZALES RMA Allergy [address],[place] [address] [place] [address] 12/26/2023 15:43:58 12/27/2023 11:12:10 Perennial allergic rhinitis 696717529 J30.89 8622 [facility], RMA Allergy 100 [facility],[place] [address] [place] [address] 01/05/2024 09:25:36 01/15/2024 11:18:45 Perennial allergic rhinitis 342627814 J30.89 9128 [facility], RMA Allergy 100 [facility],[place] [address] [place] [address] 01/09/2024 14:14:43 01/09/2024 14:30:56 Perennial allergic rhinitis 484916473 J30.89 11473 CARY GONZALES A Allergy [address] [place] [address],[place] [address] [place] [address] 01/24/2024 16:44:18 01/25/2024 11:44:33 Perennial allergic rhinitis 479417785 J30.89 53908 [facility], A Allergy 100 [facility],[place] [address] [place] [address] 01/31/2024 16:43:53 01/31/2024 16:47:47 Perennial allergic rhinitis 865360668 J30.89 31027 CARY GONZALES A Allergy [address] [place] [address],[place] [address] [place] [address] 02/09/2024 14:14:10 02/09/2024 14:21:50 Perennial allergic rhinitis 491557461 J30.89 75209 CARY GONZALES A Allergy 100 [facility],[place] [address] [place] [address] 02/16/2024 11:37:33 02/16/2024 11:41:23 Perennial allergic rhinitis 735071684 J30.89 08610 CARY GONZALES A Allergy 100 [facility],[place] [address] [place] [address] 02/21/2024 17:03:57 02/21/2024 17:18:03 Perennial allergic rhinitis 176661304 J30.89 50638 CARY GONZALES A Allergy 100 [facility],[place] [address] [place] [address] 03/06/2024 16:52:37 03/06/2024 17:15:08 Perennial allergic rhinitis 898024162 J30.89 87170 CARY GONZALES, A Allergy 100 [facility],[place] [address] [place] [address] 03/12/2024 16:58:15 03/25/2024 18:03:35 Perennial allergic rhinitis 687580572 J30.89 96471 [facility], RMA Allergy 100 [facility],[place] [address] [place] [address] 03/19/2024 16:16:58 03/19/2024 16:18:41 Perennial allergic rhinitis 358750180 J30.89 02714 [facility], RMA Allergy 100 [facility],[place] [address] [place] [address] 03/27/2024 17:10:52 03/27/2024 17:12:05 Perennial allergic rhinitis [id number] J30.89 42641 [facility], A Allergy 100 [facility],[place] [address] [place] [address] 04/03/2024 16:53:01 04/03/2024 17:21:14 Perennial allergic rhinitis 799348038 J30.89 54106 [facility], A Allergy 100 [facility],[place] [address] [place] [address] 04/10/2024 16:16:30 04/10/2024 16:18:14 Perennial allergic rhinitis 073923767 J30.89 96595 CARY GONZALES, A Allergy 100 [facility],[place] [address] [place] [address] 04/17/2024 16:47:18 04/17/2024 16:49:05 Perennial allergic rhinitis [id number] J30.89 36546 [facility], RMA Allergy [facility] [place] [address] [place] [address] 05/01/2024 16:19:15 05/01/2024 16:20:47 Perennial allergic rhinitis [id number] J30.89 81887 CARY GONZALES, [facility] Allergy 100 [facility],[place] [address] [place] [address] 05/10/2024 13:55:19 05/10/2024 13:56:55 Perennial allergic rhinitis [id number] J30.89 88884 [facility], A Allergy 100 [facility],[place] [address] [place] [address] 05/14/2024 15:51:59 05/14/2024 15:53:12 Perennial allergic rhinitis 828497915 J30.89 34316 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 [address] [place] [address],[place] [address] [place] [address] 05/30/2024 16:24:19 05/30/2024 16:26:46 Perennial allergic rhinitis 521257691 J30.89 86899 [facility], A Allergy [address] [place] [address],[place] [address] [place] [address] 06/10/2024 11:58:14 06/10/2024 11:59:43 Perennial allergic rhinitis 191449067 J30.89 10525 [facility], A Allergy [address] [place] [address],[place] [address] [place] [address] 06/26/2024 17:06:19 06/26/2024 17:28:11 Perennial allergic rhinitis 294703206 J30.89 12081 [facility], A Allergy 100 [facility],[place] it[address] [place] [address] 07/03/2024 13:24:02 07/03/2024 13:25:23 Perennial allergic rhinitis [id number] J30.89 00723 [facility], A Allergy 100 [facility],[place] [address] [place] [address] 07/17/2024 16:56:23 07/17/2024 17:03:56 Perennial allergic rhinitis 619542075 J30.89 19967 CARY GONZALES, [facility] Allergy 100 [facility],[place] [address] [place] [address] 08/07/2024 16:44:26 08/07/2024 17:00:12 Perennial allergic rhinitis 782547877 J30.89 56608 CARY FLO, A Allergy 100 [facility],[place] [address] [place] [address] 08/23/2024 14:31:46 08/23/2024 14:33:19 Perennial allergic rhinitis 874206050 J30.89 94791 MAGO CAZARES PA-C [facility] [place] 100 [facility] [place] [address] 09/02/2024 15:25:05 09/02/2024 15:28:49 Allergic rhinitis 88825152 J30.9 Nasal congestion 2297669 0 R09.81 37016 RACH MEÑO, RMA Allergy 100 [facility],[place] [address] [place] [address] 09/04/2024 16:09:27 09/04/2024 16:11:01 Perennial allergic rhinitis 164268367 J30.89 89374 [facility] Allergy 100 [facility],[place] [address] [place] [address] 09/20/2024 13:46:32 09/20/2024 13:53:14 Perennial allergic rhinitis 284208422 J30.89 14616 RACH MEÑO, RMA Allergy 100 [facility],[place] [address] [place] [address] 10/04/2024 11:49:02 10/04/2024 12:46:34 Perennial allergic rhinitis 973880927 J30.89 Health Concerns Section Related Observation LastModified by Organization Detai ls LastModified Time None Recorded Concern Status LastModified by Organization Details LastModified Time None Recorded Advance Directives Directive None Recorded Payers Encounter Date Sequence Insurance Name Policy Number Policy Koenig Covered Member ID Koenig Member ID Guarantor Name 08/23/2024 1 [facility] [place] [place] [id number] Bon Knapp [id number] Bon Knapp 09/02/2024 1 [facility] [place] [place] [id number] Bon Knapp [id number] Bon nKapp 09/04/2024 1 [facility] [place] [place] [id number] Bon Knapp [id number] Bon Knapp 09/20/2024 1 [facility]) [id number] Bon Knapp [id number] Bon Knapp 10/04/[address] [place] [address] ([facility] [place] [id number] Bon Lyoneras [id number] Bon Knapp Notes Date Note Type Note Provider Name and Address Organization Details Recorded Time 09/02/2024 text/html 34-year-old male presents for 6-month allergy review. He continues immunotherapy and is on biweekly injection. Overall doing well but needs refill on azelastine. Has been having some asthma flare but admits this is because he has not been taking his daily inhaler. ADRIANE MAYFIELD MD [address] [place] [address], [address], [facility] - [facility] 09/02/2024 16:37:08
--- OUTSIDE RECORDS SUMMARY | 2024-10-11 13:39 | XMS_ITS | Clinical Summary ---
Author Organization [facility] Address [address] [place] [address] Care Team Providers Care Programming Intern Name Role Phone Pcp, No Primary Care Provider Unavailabl e Allergies No known active allergies Medications lamoTRIgine (LaMICtal) 100 MG tablet Take 1 tablet (100 mg total) by mouth daily. Active QUEtiapine (SEROquel) 50 MG tablet Take 1 tablet (50 mg total) by mouth nightly. Active [place] 3 1000 MG Cap capsule Take 2,150 [...] drink = 0.6 oz pur e alcohol) [facility] [place] [facility] Occupat ional Health - Occupational Stress [...] per day at this level? 0 02/21/2023 Comments Unknown Sex and Gender Information Value Date Recorded Sex Assigned at Choose not to disclose 10/2022 8:36 AM EDT Legal Sex Male 11:53 AM EDT Gender Identity Male 12/11/2022 2:26 [...] 21-65) 2013 Influenza Vaccine 01/18/2024 COVID-19 Vaccine ( - 2023-2 5 season) 2024 HPV Vaccines Aged Out No longer eligi ble based on patient's age to complete this topic Pneumococcal Vaccine: Pediat agustin (0-5 Years) and At-Risk Patients (6 to 49 Years) Aged Out No longer eligible b ased on patient's age to complete this topic Insurance [facility] Care Teams Programming Intern Relationship Specialty Start Date End Date Pcp, No [address] [place] [address] PCP - General 11/23/22
== END 2024-10-11 14:38 | disposition home or self-care (01) ==
LOC: HO.HPSW 12:56
PROVIDERS: PCP Family Medicine; Visit Provider Nurse Practitioner Family
DX: J45.909 Unspecified asthma, uncomplicated (principal)
CPT/HCPCS: 99214

== ENCOUNTER → 2024-10-11 12:55 | Outpatient (BNVA) | payer OTHER, SELFPAY | PROVIDERS: PCP Family Medicine; Visit Provider Nurse Practitioner Family | DX: J45.909 Unspecified asthma, uncomplicated (principal) | CPT/HCPCS: 94640 ==

== ENCOUNTER 2024-10-16 09:49 | Outpatient (REF) | payer OTHER, SELFPAY ==
--- OUTSIDE RECORDS SUMMARY | 2024-10-16 10:43 | XMS_ITS | Patient Health Record ---
Author Organization [facility] Address [address] [place] [address] Care Team Providers Care Trimmer Loader Name Role Phone COURTNEY SIMS Unavailable [phone] ALLERGIES Allergen (clinical drug ingredient) Drug/Non Drug [...] due to excess calories (E66.09) Active confirmed 684770823 Problem Other obesity (E66.8) Active confirmed Obesity (218968708) Problem Eating disorder, unspecified (F50.9) Active confirmed Eating disorder (79143748) Problem Morbid obesity (E66.01) Active confirmed 650312212 Problem BMI 40.0-44.9, adult (Z68.41) Active confirmed Body mass index 40+ - morbidly obese (787091935) Problem Body mass index [BMI] 38.0-38.9, adult (Z68.38) Active confirmed 042212083 Problem Obesity (BMI 35.0-39.9 without comorbidity) (E66.9) Active confirmed 396436575 Problem Adult BMI 37.0-37.9 kg/sq m (Z68.37) Active confirmed 698801676 Problem Body mass index [BMI] 40.0-44.9, adult (Z68.41) Active confirmed 858117324 Problem Bipolar affective disorder, current episode manic, current episode severity unspecified (F31.10) Active confirmed Manic bipolar I disorder (79704738) Encounters Encounter Location Date Provider Diagnosis [place] [address] [address] 01/30/2024 COURTNEY SIMS PLAN OF TREATMENT No Information Insurance Providers Payer Name Payer Address Payer Phone Subscriber Number Group Number Insured Name Patient Relationship to Insured Coverage Start Date Coverage End Date [facility] [address] [place] [address] [id number] Bon Knapp Self - patient is the insured 1 MEDICAL (GENERAL) HISTORY Medical History History ICD Code asthma Surgical History Surgery Date(Month/Year) wisdom teeth extraction 2010
--- OUTSIDE RECORDS SUMMARY | 2024-10-16 10:43 | XMS_ITS ---
Author Organization [facility] Address [address] [place] [address] Care Team Providers Care Cured Meats Supervisor Name Role Phone COURTNEY SIMS Unavailable [phone] REASON FOR VISIT record request Encounters Encounter Location Date Provider Diagnosis [facility] 119 299 [facility] [address] [place] [address] 01/30/2024 COURTNEY SIMS PLAN OF TREATMENT No Information Progress Notes * Bon BARTONDOB:[birth year] (33 yo M)Acc No.[id number]:01/30/2024 Patient:??Bon BARTON :1990?Age:33 Y?Sex:Meri castro Address:[address] , [place] [address] * true * Date:??
--- OUTSIDE RECORDS SUMMARY | 2024-10-16 10:43 | XMS_ITS | Clinical Summary ---
Author Organization [facility] Address [address] [place] [address] Care Team Providers Care Railroad Dining Car Steward/Stewardess Name Role Phone Pcp, No Primary Care Provider Unavailabl e Allergies No known active allergies Medications lamoTRIgine (LaMICtal) 100 MG tablet Take 1 tablet (100 mg total) by mouth daily. Active QUEtiapine (SEROquel) 50 MG tablet Take 1 tablet (50 mg total) by mouth nightly. Active Zahl 3 1000 MG Cap capsule Take 2,150 [...] drink = 0.6 oz pur e alcohol) [facility] [place] [facility] - Occupational Stress [...] patient's age to complete this topic Insurance [facility] Care Teams Railroad Dining Car Steward/Stewardess Relationship Specialty Start Date End Date Pcp, No [address] [place] [address] PCP - General 11/23/22
--- OUTSIDE RECORDS SUMMARY | 2024-10-16 10:43 | XMS_ITS | Clinical Summary ---
Author Organization [facility] Address [address] [place] [address] Phone Care Team Providers Care Retail Pharmacist Name Role Phone Gonzalez Sparks MD Primary Care Provider [phone] Allergies Active Allergy Reactions Criticality Noted Date [...] 01/12/2024 2:38 PM EDT Plan of Treatment Upcoming Encounters Date Type Department Care Team (Late st Contact Info) Description 10/21/2024 1:45 PM EDT Hospital Encounter [facility] [address] [place] [address] Health Maintenance Due Date Last Done Comments DTaP,Tdap,and Td Vaccines (1 - Tdap) 2011 Hepatitis B Vaccines (1 of 3 - 19+ 3-dose series) 2011 Depression Screening 05/17/2022 HIV Screening 05/17/2022 Hepatitis C Screening 05/17/2022 Social Influencers of Health Screening 05/17/2022 COVID-19 Vaccine (1 - 2024-2 5 season) 2024 Influenza Vaccine (Season Ended) [...] patient's age to complete this topic [place] [address] [address] [address] [place] [id number] [facility] Care Teams Retail Pharmacist Relationship Specialty Start Date End Date Gonzalez Sparks MD [address] PCP - General 04/19/23
[2024-10-16 18:01] LABS: MANUAL DIFF FLAG NO
[2024-10-16 18:10] LABS: Basophils Percent Auto 0.4 % (0-2); Eosinophils Absolute Auto 0.1 X10*3/uL (0.0-0.4); Eosinophils Percent Auto 0.6 % (0-4); Hematocrit 39.3 % (42.0-52.0); Hemoglobin 13.2 g/dl (14.0-18.0); Imm Gran Abs Auto 0.03 X10*3/uL (0.00-0.03); Imm Gran Pct Auto 0.4 % (0.0-0.4); Lymphocytes Absolute Auto 1.7 X10*3/uL (1.2-4.9); Lymphocytes Percent Auto 21.5 % (20-40); Mean Corpuscular HGB Conc 33.6 g/dl (31.0-36.0); Mean Corpuscular Hemoglobin 29.7 pg (27.0-33.0); Mean Corpuscular Volume 88.3 fL (80.0-98.0); Mean Platelet Volume 9.7 fL (9.4-12.4); Monocytes Absolute Auto 0.5 X10*3/uL (0.1-1.2); Monocytes Percent Auto 6.2 % (2-11); Neutrophils Absolute Auto 5.5 x10*3/uL (2.0-8.3); Neutrophils Percent Auto 70.9 % (45-73); Platelet Count 340 X10*3/uL (160-400); Red Blood Count 4.45 X10*6/uL (4.60-5.80); Red Cell Distribution Width 12.7 % (11.0-16.0); White Blood Count 7.8 X10*3/uL (4.8-10.8)
[2024-10-28 11:39] LABS: Class Alternaria alternata 0; Class Aspergillus fumigatus 0; Class Bermuda Grass 0; Class Birch 0; Class Cat Dander 0; Class Cladosporium herbarum 0; Class Cockroach 0; Class Common Ragweed 0; Class Cottonwood 0; Class Derm. pterony 0; Class Dermatophagoides farinae 0; Class Dog Dander 0; Class Elm 0; Class Maple Box Elder 0; Class Mountain Cedar 0; Class Mouse Urine Protein 0; Class Mugwort 0; Class Oak 0; Class Penicillium crysogenum 0; Class Rough Pigweed 0; Class Sheep Sorrel 0; Class Sycamore 0; Class Timothy Grass 0; Class Walnut Tree 0; Class White Ash 0; Class White Mulberry 0; D001 IgE D pteronyssinus <0.10 kU/L; D002 - IgE D farinae <0.10 kU/L; E001 - IgE Cat Dander <0.10 kU/L; E005 - IgE Dog Dander <0.10 kU/L; E072-IgE Mouse Urine <0.10 kU/L; G002 IgE Bermuda Grass <0.10 kU/L; G006 - IgE Timothy Grass <0.10 kU/L; I006-IgE Cockroach, German <0.10 kU/L; Immunoglobulin E 6 kU/L (<OR=114); M001 IgE Penicillium chrysogen <0.10 kU/L; M002 - IgE Cladosporium herbar <0.10 kU/L; M003 - IgE Aspergillus fumigat <0.10 kU/L; M006 - IgE Alternaria alternat <0.10 kU/L; T001 IgE Maple/Box Elder <0.10 kU/L; T003 IgE Common Silver Birch <0.10 kU/L; T006 - IgE Cedar, Mountain <0.10 kU/L; T007 - IgE Oak, White <0.10 kU/L; T008 IgE Elm, American <0.10 kU/L; T010 - IgE Walnut <0.10 kU/L; T011 - IgE Maple Leaf Sycamore <0.10 kU/L; T014 - IgE Cottonwood <0.10 kU/L; T015 - IgE Ash, White <0.10 kU/L; T070 - IgE White Mulberry <0.10 kU/L; W001 - IgE Ragweed, Short <0.10 kU/L; W006 - IgE Mugwort <0.10 kU/L; W014 IgE Pigweed, Common <0.10 kU/L; W018 IgE Sheep Sorrel <0.10 kU/L
== END 2024-10-16 09:50 | disposition home or self-care (01) ==
LOC: HO.HKASLDS 09:49
PROVIDERS: Visit Provider Nurse Practitioner Family
DX: Z91.09 Other allergy status, other than to drugs and biological substances (principal)
CPT/HCPCS: 36415; 82785; 85025; 86003

== ENCOUNTER 2025-04-04 13:11 | Outpatient (AMB) | payer OTHER, SELFPAY ==
[2025-04-04 13:13] VITALS: BP 122/86; PULSE 79; O2SAT 98; BMI 35.0
--- NOTE | 2025-04-04 13:13 | MHC.OFFVIS ---
Vital Signs 04/04/25 13:13 Height 5 ft 9 in Weight 237 lb 2 oz BMI 35.0 BP 122/86 Blood Pressure Location Rt brachial Position Sitting Pulse 79 Pulse Source Pulse Oximeter Pulse Oximetry (%) 98 Oxygen Delivery Method Room Air Intake Visit Reasons: Asthma Allergies Seasonal Allergies Allergy (Intermediate, Verified 04/04/25 13:16) Cough amoxicillin Allergy (Unknown, Verified 04/04/25 13:16) Rash HPI HPI Asthma: Details: Bon is a very pleasant 34 year old male, never tobacco smoker, with underlying asthma since childhood. Since the last visit patient has been maintained on Tezspire from rehabilitation teacher in addition to Trelegy, albuterol MDI and DuoNeb. He reports excellent control with this regimen, denying any visits to urgent care/hospitalizations or need for prednisone. He has been able to sustain an exercise regimen with initial chest tightness however has been using albuterol prior to engaging in activity with improvements. He has been working towards weight loss and motivated to continue. He has stopped antihistamines and flonase, with the recommendation to restart in the Spring. Prior chest CT 09/2024 unremarkable with no further need for imaging. [facility] Social History Patient Tobacco Use Status: Never used Tobacco Review of Systems Const Denies chills, Denies excessive sweating, Denies fever(s), Denies headache(s) and Denies night sweats Eyes Denies dry eyes, Denies irritation and Denies itchy eyes ENT Reports Normal hearing present, Denies headache(s), Denies nasal congestion, Denies nasal discharge, Denies post nasal drip and Denies sore throat Card Denies chest pain, Denies chest pain at rest, Denies chest pain with activity, Denies claudication, Denies leg edema, Denies dyspnea, Denies dyspnea on exertion, Denies orthopnea and Denies paroxysmal nocturnal dyspnea Resp Denies chest congestion, Denies cough, Denies excessive phlegm production, Denies pain on inspiration, Denies pain with cough, Denies dyspnea, Denies dyspnea on exertion, Denies stridor and Denies wheezing Musc Denies myalgias Neuro Reports Normal hearing present and Denies headache(s) Endo Denies excessive sweating Jeanmarie/Lymph Denies lymphadenopathy Aller/Immun Denies itchy eyes, Denies seasonal rhinorrhea and Denies wheezing Physical Exam Vital Signs: Last Vital Signs Pulse 79 04/04/25 13:13 BP 122/86 04/04/25 13:13 Pulse Ox 98 04/04/25 13:13 Oxygen Delivery Method Room Air 04/04/25 13:13 BMI result Body Mass Index 35.0 Const General: cooperative, healthy appearing, comfortable, no acute distress, well developed and alert Nutritional Appearance: obese Orientation/consciousness: patient oriented x3 Limitations: no limitations HEENT Head: Yes normal to inspection, Yes normocephalic and Yes atraumatic Ears: hearing grossly normal bilaterally and external ears normal Eyes General: appearance normal, both eyes and all related structures Eyelids: Yes eyelids normal Sclerae: sclerae normal EOM: EOMs intact bilaterally Neck Neck: Yes normal visual inspection and Yes no lymphadenopathy Lymphatic: no lymphadenopathy noted Chest Chest palpation & inspection: normal inspection of the chest Resp Effort & Inspection: normal respiratory effort, able to speak in complete sentences, no audible wheezes, no cough, no stridor, not tachypneic, no tripod positioning and no use of accessory muscles Auscultation: clear to auscultation bilaterally Cardio Jugular venous distension: no JVD Rate: regular rate Rhythm: regular rhythm Skin Other: warm, dry General skin exam: no rashes or lesions noted Neuro General: patient oriented x3 Cranial nerves: Yes Normal hearing present Cognition (Neuro): normal cognition Gait exam (Neuro): Normal gait present Extrem General: Yes normal to inspection, Yes capillary refill normal, Yes no clubbing, cyanosis or edema and Yes no pedal edema Psych Appearance: grossly normal and well kempt Speech and movement: Normal speech and movement present and Clear speech present Affect: normal affect Attitude: cooperative Thought process: Normal thought process present Thought content: Normal thought content present Insight: Good insight present (Psych) Judgement: Good judgement present (Psych) Assessment & Plan Assessment & Plan (1) Asthma: Code(s): J45.909 - Unspecified asthma, uncomplicated Category: Medical (2) Chronic allergic rhinitis: Code(s): J30.9 - Allergic rhinitis, unspecified Category: Medical Plan Bon reports good control of respiratory symptoms on current regimen, advised to continue. He is aware to call if symptoms change. All questions were answered and patient is in agreement of plan. Will follow up in 6 months or sooner if needed. Medications: Refilled ccbomtjqfec-pwcijubpt-metiosmx 200-62.5-25 mcg (Trelegy Ellipta) 1 inh inhalation DAILY 60 ea 6RF ipratropium-albuterol 0.5 mg-3 mg(2.5 mg base)/3 mL 3 mL inhalation Q6H PRN 180 mL 2RF wheezing albuterol sulfate 90 mcg/actuation 2 puffs inhalation Q4-6H PRN 3 ea 1RF shortness of breath or wheezing 90 days Coding Level of Care Code Est Pt Level 3 (16446) Diagnoses Asthma J45.909 Chronic allergic rhinitis J30.9
--- OUTSIDE RECORDS SUMMARY | 2025-04-04 15:51 | XMS_ITS | Data Portability ---
Author Organization [place] - [facility], Allergy Address [address] [place] [address] [address] [place] [address] Assessment Encounter Date Assessment Date Assessment LastModified by Organization Details LastModified Time 08/23/2024 08/23/2024 Visit With: Cary Gonzales Use of Antihistamine s: No If yes: Vial Test Change in medications: No If yes Increase in asthma symptoms If yes, inhaler use: Reaction to last injections: No If yes: Allergy Symptoms: Other: Missed: Dose Aware of Vial Test Notes: [email or web address] Not available 08/23/2024 14:33:01 09/02/2024 09/02/2024 34-year-old male presents for 6-month allergy review. Refill of azelastine sent to pharmacy. Continue immunotherapy . Follow-up in 6 months. gala Not available 09/02/2024 15:27:43 09/04/2024 09/04/2024 Visit With: SAL Nugent Use of Antihistamine s: No If yes: Vial Test Change in medications: No If yes Increase in asthma symptoms No If yes, inhaler use: Reaction to last injections: No If yes: Allergy Symptoms: Other: Missed: Dose Aware of Vial Test Notes: [email or web address] Not available 09/04/2024 16:10:14 09/20/2024 09/20/2024 Visit With: SAL Nugent Use of Antihistamine s: No If yes: Vial Test Change in medications: No If yes Increase in asthma symptoms If yes, inhaler use: Reaction to last injections: No If yes: Allergy Symptoms: Other: Missed: Dose Aware of Vial Test Notes: [email or web address] Not available 09/20/2024 13:47:54 10/04/2024 10/04/2024 Visit With: SAL Nugent Use of Antihistamine s: No If yes: Vial Test Change in medications: No If yes Increase in asthma symptoms If yes, inhaler use: Reaction to last injections: No If yes: Allergy Symptoms: Other: Missed: Dose Aware of Vial Test Notes: [email or web address] Not available 10/04/2024 11:59:09 Plan of Treatment Reminders Order Date Submit Date Provider Last Modified By Organization Details Last Modified Time Details Appointments None recorded. Lab None recorded. Referral None recorded. Procedures None recorded. Surgeries None recorded. Imaging None recorded. Medication Orders azelastine 137 mcg (0.1 %) nasal spray 2024 025 [facility] #[id number], [address], [place], [id number], 5 15:28:16 Patient TargetsNo targets recorded. Patient InstructionsNo instructions recorded. Reason for Referral None Reported. Problems Name Problem SNOMED Code Status Onset Date Resolution Date Notes Provider Name and Address Organization Details Recorded Time Peritonsi llar abscess 28989022 Active 2015 Peritonsil lar abscess; Note: Date Diagnosed: 03/14/2016 4:15 PM (J36) Not Available [facility] 4 03:23:27 Posterior rhinorrhe a 07296862 Active 2017 Postnasal drip; Note: Date Diagnosed: 05/04/2018 11:24 AM (R09.82) Not Available [facility] 4 03:23:27 Nasal congestio n 08906469 Active 2017 Nasal congestion ; Note: Date Diagnosed: 05/04/2018 11:24 AM (R09.81) Not Available [facility] 4 03:23:27 Seasonal allergic rhinitis 320972498 Active 2018 Other seasonal allergic rhinitis; Note: Date Diagnosed: 07/16/2018 10:13 AM (J30.2) Not Available [facility] 4 03:23:27 Allergic rhinitis 05634518 Active 2023 Allergic rhinitis: Due to other [...] 4:22 PM (477.8) Note: Gagan [facility] Available [facility] 01:27:26 Perennial allergic rhinitis 315343842 Active [address], [address] , [facility] 16:31:36 Problem Notes None recorded. Procedures Surgical History Date Name Laterality Status Provider Name and Address Organization Details Recorded Time 10/05/19 25 Allergy Immunotherapy Injections completed RACH WILDERC, RMA [address], [place], [address], [place] [facility] [place] 10/04/2024 11:59:04 09/21/19 25 Allergy Immunotherapy Injections completed RACH TERRYZEC, RMA [address], [place], [address], [place] [facility] [place] 09/20/2024 13:47:49 09/05/19 25 Allergy Immunotherapy Injections completed ELLE CHATMAN RN [address], [place], [address], [place] [facility] [place] 09/04/2024 16:10:03 08/24/19 25 Allergy Immunotherapy Injections completed RACH HIGGINS, RMA [address], [place], [address], [place] [facility] [place] 08/23/2024 14:32:54 08/07/19 25 Allergy Immunotherapy Injections completed SAL GALINDO [address], [place], [address], [place] [facility] [place] 08/07/2024 16:52:59 07/17/19 25 Allergy Immunotherapy Injections completed ELLE CHATMAN RN [address], [place], [address], [place] [facility] [place] 07/17/2024 17:03:31 07/03/19 25 Allergy Immunotherapy Injections completed RACH HIGGINS RMA [address], [place], [address], [place] [facility] [place] 07/03/2024 13:24:50 06/26/19 25 Allergy Immunotherapy Injections completed SAL GALINDO [address], [place], [address], [place] [facility] [place] 06/26/2024 17:24:00 06/10/20 24 Allergy Immunotherapy Injections completed RACH HIGGINS, RMA [address], [place], [address], [place] [facility] [place] 06/10/2024 11:59:19 05/30/20 24 Allergy Immunotherapy Injections completed ELLE CHATMAN RN [address], [place], [address], [place] [facility] [place] 05/30/2024 16:26:26 05/14/20 24 Allergy Immunotherapy Injections completed RACH HIGGINS, RMA [address], [place], [address], [place] [facility] [place] 05/14/2024 15:52:38 05/10/20 24 Allergy Immunotherapy Injections completed SAL GALINDO [address], [place], [address], [place] [facility] [place] 05/10/2024 13:56:20 05/01/20 24 Allergy Immunotherapy Injections completed ELLE CHATMAN RN [address], [place], [address], [place] [facility] [place] 05/01/2024 16:20:08 04/17/20 24 Allergy Immunotherapy Injections completed RACH HIGGINS RMA [address], [place], [address], [place] [facility] [place] 04/17/2024 16:48:38 04/10/20 24 Allergy Immunotherapy Injections completed ELLE CHATMAN RN [address] [place] [address], [address], [place] [facility] [place] 04/10/2024 16:17:42 04/03/20 24 Allergy Immunotherapy Injections completed SAL GALINDO [address], [place], [address], [place] [facility] [place] 04/03/2024 17:19:19 03/27/20 24 Allergy Immunotherapy Injections completed RACH HIGGINS RMA [address], [place], [address], [place] [facility] [place] 03/27/2024 17:11:33 03/19/20 24 Allergy Immunotherapy Injections completed RACH HIGGINS RMA [address], [place], [address], [place] [facility] [place] 03/19/2024 16:18:00 03/12/20 24 Allergy Immunotherapy Injections completed CARY GONZALES RMA [address], [place], [address], [place] [facility] [place] 03/12/2024 16:59:58 03/06/20 24 Allergy Immunotherapy Injections completed CARY GONZALES RMA [address], [place], [address], [place] [facility] [place] 03/06/2024 16:53:38 02/21/20 24 Allergy Immunotherapy Injections completed CARY GONZALES RMA [address], [place], [address], [place] [facility] [place] 02/21/2024 17:06:21 02/16/20 24 Allergy Immunotherapy Injections completed TONI GALINDOA [address], [place], [address], [place] [facility] [place] 02/16/2024 11:38:32 02/09/20 24 Allergy Immunotherapy Injections completed RACH HIGGINS RMA [address], [place], [address], [place] [facility] [place] 02/09/2024 14:15:11 01/31/20 24 Allergy Immunotherapy Injections completed RACH HIGGINS RMA [address], [place], [address], [place] [facility] [place] 01/31/2024 16:45:20 01/24/20 24 Allergy Immunotherapy Injections completed TONI GALINDOA [address], [place], [address], [place] [facility] [place] 01/24/2024 16:54:44 01/09/20 24 Allergy Immunotherapy Injections completed RACH HIGGINS RMA [address], [place], [address], [place] [facility] [place] 01/09/2024 14:20:54 01/05/20 24 Allergy Immunotherapy Injections completed RACH HIGGINS RMA [address], [place], [address], [place] [facility] [place] 01/05/2024 09:57:45 12/26/19 24 Allergy Immunotherapy Injections completed SAL GALINDO [address] [place] [address], [address], [facility] - [facility] [place] 12/26/2023 15:50:59 12/19/19 24 Allergy Immunotherapy Injections completed ELLE CHATMAN RN [address], [place], [address], [place] [facility] [place] 12/19/2023 16:43:24 12/05/19 24 Allergy Immunotherapy Injections completed SAL GALINDO [address], [place], [address], [place] [facility] 12/05/2023 16:12:33 11/29/19 24 Allergy Immunotherapy Injections completed RACH HIGGINS RMNatasha [address] [place] [address], [address], [place] [facility] 11/29/2023 17:05:00 11/21/19 24 Allergy Immunotherapy Injections completed RACH HIGGINS RMA [address] [place] [address], [address], [place] [facility] 11/21/2023 15:51:07 11/20/19 24 Telehealth completed MAGO CAZARES PA-C [address] [place] [address], [address], [facility] - [facility] 11/20/2023 09:23:48 11/16/19 24 Allergy Immunotherapy Injections completed SAL GALINDO [address] [place] [address], [address], [facility] - [facility] 11/16/2023 15:52:45 11/08/19 24 Allergy Immunotherapy Injections completed RACH HIGGINS RMA [address], [place], [address], [facility] - [facility] 11/08/2023 16:32:04 Imaging Results None recorded. Procedure Notes None recorded. Medical Equipment None Reported. Allergies Allergen ID Allergen Name Allergen Category Reaction Reaction Severity Criticality Documentation Date Start Date Code Code System Note Provider Name and Address Organization Details Recorded Time 443193 amoxicill in medicatio n other Not available Not available 10/31/2023 723 RxNorm React ion: unkno wn, unspe cifie d;; Not Available [facility] 4 01:26:29 Medications Name Sig Start Date [...] mg tablet 07/02 completed Medicati on ID: [id number] R hoa: () Brand Name: Zoloft S [...] e 137 mcg (0.1 %) nasal spray [place] 2 sprays twice a day by intranas al route for 90 days. 2024 active Not Available Not Available Not Avai lable epinephri ne 0.3 mg/0.3 mL injection , auto-inje ctor Inject 1 pen injector single dose as needed 2023 active Not Available Not Available Not Avai lable polyethyl kae glycol 3350 17 gram/dose oral powder 05/09 completed Medicati on ID: [id number] D uration Value: 7 Brand Name: polyethy [...] Diagnosis SNOMED-CT Code Diagnosis ICD10 Code Diagnosis IMO Codes Diagnosis Note 1220 CARY FLO, RMA Allergy [address] [facility],[address] [place] [address] 11/08/2023 16:25:39 11/08/2023 16:41:51 Perennial allergic rhinitis [id number] J30.89 2141 [facility] Allergy [address] [facility],[address] [place] [address] 11/16/2023 15:49:56 11/16/2023 16:13:57 Perennial allergic rhinitis [id number] J30.89 2370 MAGO CAZARES PA-C [facility] [place] [address] [facility] [address] 11/20/2023 09:08:47 11/20/2023 12:24:36 Allergic rhinitis [id number] J30.89 2765 [facility], A Allergy [address] [facility],[address] [place] [address] 11/21/2023 15:42:39 11/21/2023 15:56:49 Perennial allergic rhinitis [id number] J30.89 3847 [facility], RMA Allergy [address] [facility],[address] [place] [address] 11/29/2023 17:03:35 11/29/2023 17:30:37 Perennial allergic rhinitis [id number] J30.89 4601 [facility], A Allergy [address] [facility],[address] [place] [address] 12/05/2023 15:42:32 12/05/2023 16:15:18 Perennial allergic rhinitis [id number] J30.89 6404 ELLE CHATMAN RN Allergy [address] [facility],[address] [place] [address] 12/19/2023 16:32:38 12/19/2023 16:44:57 Perennial allergic rhinitis 141285443 J30.89 7147 CARY GONZALES, A Allergy [address] [facility],[address] [place] [address] 12/26/2023 15:43:58 12/27/2023 11:12:10 Perennial allergic rhinitis 137974220 J30.89 8622 [facility], RMA Allergy [address] [place],[address] [place] [address] 01/05/2024 09:25:36 01/15/2024 11:18:45 Perennial allergic rhinitis [id number] J30.89 9128 [facility], RMA Allergy 100 [facility],[address] [place] [address] 01/09/2024 14:14:43 01/09/2024 14:30:56 Perennial allergic rhinitis 081415270 J30.89 [id number] CARY GONZALES RMA Allergy 100 [facility],[address] [place] [address] 01/24/2024 16:44:18 01/25/2024 11:44:33 Perennial allergic rhinitis [id number] J30.89 87198 [facility], RMA Allergy 100 [facility],[address] [place] [address] 01/31/2024 16:43:53 01/31/2024 16:47:47 Perennial allergic rhinitis [id number] J30.89 73856 CARY GONZALES A Allergy 100 [facility],[address] [place] [address] 02/09/2024 14:14:10 02/09/2024 14:21:50 Perennial allergic rhinitis [id number] J30.89 82924 CARY GONZALES A Allergy [address] [facility],[address] [place] [address] 02/16/2024 11:37:33 02/16/2024 11:41:23 Perennial allergic rhinitis [id number] J30.89 69853 CARY GONZALES A Allergy [address] [facility],[address] [place] [address] 02/21/2024 17:03:57 02/21/2024 17:18:03 Perennial allergic rhinitis [id number] J30.89 86623 CARY GONZALES RMA Allergy [address] [facility],[address] [place] [address] 03/06/2024 16:52:37 03/06/2024 17:15:08 Perennial allergic rhinitis [id number] J30.89 24411 CARY GONZALES RMA Allergy [address] [facility],[address] [place] [address] 03/12/2024 16:58:15 03/25/2024 18:03:35 Perennial allergic rhinitis [id number] J30.89 [id number] [facility], RMA Allergy [address] [facility],[address] [place] [address] 03/19/2024 16:16:58 03/19/2024 16:18:41 Perennial allergic rhinitis [id number] J30.89 [id number] [facility], RMA Allergy [address] [facility],[address] [place] [address] 03/27/2024 17:10:52 03/27/2024 17:12:05 Perennial allergic rhinitis [id number] J30.89 52882 [facility], RMA Allergy 100 [facility],[address] [place] [address] 04/03/2024 16:53:01 04/03/2024 17:21:14 Perennial allergic rhinitis [id number] J30.89 [id number] [facility], RMA Allergy [address] [facility],[address] [place] [address] 04/10/2024 16:16:30 04/10/2024 16:18:14 Perennial allergic rhinitis [id number] J30.89 38702 CARY GONZALES A Allergy 100 [facility],[address] [place] [address] 04/17/2024 16:47:18 04/17/2024 16:49:05 Perennial allergic rhinitis [id number] J30.89 30540 [facility], RMA Allergy 100 [facility],[address] [place] [address] 05/01/2024 16:19:15 05/01/2024 16:20:47 Perennial allergic rhinitis [id number] J30.89 [id number] CARY GONZALES RMA Allergy 100 [facility],[address] [place] [address] 05/10/2024 13:55:19 05/10/2024 13:56:55 Perennial allergic rhinitis [id number] J30.89 [id number] [facility], A Allergy 100 [facility],[address] [place] [address] 05/14/2024 15:51:59 05/14/2024 15:53:12 Perennial allergic rhinitis [id number] J30.89 53396 ELEL CHATMAN trench trimmer fine [address] [place] [address],[address] [place] [address] 05/30/2024 16:24:19 05/30/2024 16:26:46 Perennial allergic rhinitis [id number] J30.89 16042 [facility] [place], [facility] Allergy [address] [place] [address],[address] [place] [address] 06/10/2024 11:58:14 06/10/2024 11:59:43 Perennial allergic rhinitis [id number] J30.89 13563 [facility], [facility] Allergy [address] [place] [address],[address] [place] [address] 06/26/2024 17:06:19 06/26/2024 17:28:11 Perennial allergic rhinitis [id number] J30.89 [id number] RACH [place], [facility] Allergy [address] [place] [address],[address] [place] [address] 07/03/2024 13:24:02 07/03/2024 13:25:23 Perennial allergic rhinitis [id number] J30.89 [id number] [facility] [place], [facility] Allergy [address] [place] [address],[address] [place] [address] 07/17/2024 16:56:23 07/17/2024 17:03:56 Perennial allergic rhinitis [id number] J30.89 69139 CARY GONZALES [facility] Allergy [address] [place] [address],[address] [place] [address] 08/07/2024 16:44:26 08/07/2024 17:00:12 Perennial allergic rhinitis [id number] J30.89 [id number] CARY GONZALES [facility] Allergy [address] [place] [address],[address] [place] [address] 08/23/2024 14:31:46 08/23/2024 14:33:19 Perennial allergic rhinitis [id number] J30.89 [id number] MAGO CAZARES PA-C [facility] of [address] [address] 09/02/2024 15:25:05 09/02/2024 15:28:49 Allergic rhinitis 85923573 J30.9 Nasal congestion [id number] R09.81 [id number] [facility] Allergy [address] [place] [address],[address] [address] 09/04/2024 16:09:27 09/04/2024 16:11:01 Perennial allergic rhinitis [id number] J30.89 [id number] [facility] Allergy [address] [place] [address],[address] [address] 09/20/2024 13:46:32 09/20/2024 13:53:14 Perennial allergic rhinitis [id number] J30.[id number] [address] 10/04/2024 11:49:02 10/04/2024 12:46:34 Perennial allergic rhinitis 147897241 J30.89 Health Concerns Section Related Observation LastModified by Organization Detai ls LastModified Time None Recorded Concern Status LastModified by Organization Details LastModified Time None Recorded Advance Directives Directive None Recorded Payers Insurance Date Sequence Insurance Name Policy Number Policy Koenig Covered Member ID Koenig Member ID Guarantor Name 10/25/[address] [place] [address] ([facility]) [id number] Bon Knapp [id number] Bon Knapp Notes Date Note Type Note Provider Name and Address Organization Details Recorded Time 09/02/2024 text/html ROS as noted in the HPI 34-year-old male presents for 6-month allergy review. He continues immunotherapy and is on biweekly injection. Overall doing well but needs refill on azelastine. Has been having some asthma flare but admits this is because he has not been taking his daily inhaler. ADRIANE MAYFIELD MD [address] [place] [address],[address], [address], [facility] 09/02/2024 16:37:08
--- OUTSIDE RECORDS SUMMARY | 2025-04-04 15:51 | XMS_ITS ---
Author Name [facility] Organization Unknown History of Medication Use Medication Directions Dispensed Refills Start Date End Date Stat us Semaglutide-Weight Management (Wegovy) 0.25 MG/0.5ML Solution Auto-injector Inject 0.25 mg under the skin once a week. 03/09/2023 06/08/2023 active dulaglutide (TRULICITY) 0.75 MG/0.5ML prefilled pen injection Inject 0.75 mg under the skin once a week. 03/07/2023 06/06/2023 aborted Semaglutide-Weight Management (Wegovy) 0.5 MG/0.5ML Solution Auto-injector Inject 0.5 mg under the skin once a week. 02/21/2023 05/23/2023 active lamoTRIgine (LaMICtal) 100 MG tablet Take 1 tablet (100 mg total) by mouth daily. active [place] 3 1000 MG Cap capsule Take 2,150 mg by mouth daily. Administer whole. Do not break. active QUEtiapine (SEROquel) 50 MG tablet Take 1 tablet (50 mg total) by mouth nightly. active Problems Problem Status Onset Date Problem Type Date of Resolution Source Bipolar two disorder active 2023-02-21 [facility] Osteoarthritis active 2023-02-21 ProblemAct [facility] Encounter for weight management active En[facility]Diagnosis[facility] Anxiety active 2023-02-21 ProblemAct [facility] Obesity, Class III, BMI 40-49.9 (morbid obesity) active 2023-02-21 ProblemAct [facility] Binge eating disorder active 2023-02-21 ProblemAct [facility] GERD (gastroesophageal reflux disease) active 2023-02-21 ProblemAct [facility] Encounters Encounter Type Encounter Reason Primary Diagnosis Location Date Ambulatory Abnormal weight gain Abnormal weight gain [facility] 02/21/2023 [facility] 02/07/2023 [facility] 12/21/2022 Care Team Organization Name Specialty Phone Email Start Date End Da te [facility] NO PCP Primary Care 12/21/2022 01/05/2023 [facility] PCP,No Primary Care 12/21/2022 [facility] Lorraine Ibarra Primary Care 04/26/2022 4
--- OUTSIDE RECORDS SUMMARY | 2025-04-04 15:51 | XMS_ITS | Encounter Summary ---
Author Organization [facility] Address [address] [address] Phone Care Team Providers Care Solidworks Mechanical Designer Name Role Phone Chuck Strauss MD Primary Care Provider [phone] Apoorva Zarco NP Primary Care Provider [phone] Chuck Strauss MD Primary Care Provider [phone] Reason for Referral * Outpatient Procedure - Closed Specialty Diagnoses / Procedures Referred By Sheri whitley Referred To Contact Diagnoses Chest wall pain Procedures Adult Echo TTE Chuck Strauss MD Phone: tel: fax: [email or web address] Referral ID Status Reason Start Date Expiration Date Visits Re quested Visits Authorized [id number] Closed 12/27/2018 12/27/2019 1 1 Encounter Details Date Type Department Care Team (Late st Contact Info) Description 12/27/2018 Ancillary Orders Virtual Department [address] [place] [address] Chuck Strauss MD [address] [facility] [address] [place] [address] [email or web address] Chest wall pain Social History Tobacco Use Types Packs/Day Years Used Date Smoking Tobacco: Never Assessed Sex and Gender Information Value Date Recorded Sex Assigned at Male 07/31/2021 6:49 PM EST Legal Sex Male 11:45 AM EDT Gender Identity Male 07/31/2021 6:49 PM EST Sexual Orientation Not on file documented as of this encounter Plan of Treatment Upcoming Encounters Date Type Department Care Team (Late st Contact Info) Description 05/19/2025 8:30 AM EST Office Visit [facility] G[facility] [address] [place] [address] Unknown, Unknown, Tracy Carpenter PA-C [address] [facility] [address] [place] [address] [email or web address] documented as of this encounter Results * TTE COMPREHENSIVE (01/03/2019 10:30 AM EDT) Body Surface Area 2.1 m2 Height 175 cm Weight 90 kg Systolic BP 130 mmHg Diastolic BP 93 mmHg Interventricular Septum Thickness 11 mm Left Ventricle Internal Diameter End Diastole 41 42 - 58 mm Left Ventricle Internal Diameter End Systole 30 25 - 40 mm Left Ventricular Outflow Tract Diameter 18.0 mm LVOT VTI REST 204 mm Left Ventricular Outflow Tract Velocity 1.1 m/s Left Ventricular Outflow Tract Gradient at Rest 5 mmHg Left Ventricular Posterior Wall Thickness 11 mm Ejection Fraction 64 50 - 75 Percent Left Atrium Dimension Anterior-Posterior 39 15 - 40 mm Aortic Valve Mean Gradient 4 mmHg Aortic Valve Time Velocity Integral 206 mm Aortic Valve Peak Velocity 128.0 cm/s Aortic Valve Peak Gradient 7 mmHg Aortic Sinus Diameter 27 mm Ascending Aorta Diameter 28 mm Inferior Vena Cava Diameter 19 0.0 - 21 mm Mitral Valve Deceleration Time 151 ms Mitral Valve A Wave Speed 55.3 cm/s Mitral Valve E Wave Speed 83.6 cm/s Right Ventricle Basal Diameter 32.2 25 - 41 mm Tricuspid Valve Peak Velocity 1.7 m/s Raw LV EF% 46 % Left Atrial Volume 41 mL Left Atrial Volume Index 19.52 mL/m2 Right Ventricle Peak Systolic Pressure 15 mmHg Right Ventricle TAPSE 2 mm Right Atrium Pressure Estimated 3 mmHg Right Ventricle to Right Atrium Pressure Gradient 12 mmHg Aortic Valve Sinus Index 1 13 20 - 32 mm Ascending Aorta Diameter 13 mm Aortic Sinus Index 13 mm Ascending Aorta Index 13 mm Anatomical Region Laterality Modality Heart Ultrasound Narrative 01/06/2019 3:50 PM EDT The predominant rhythm during the study was sinus. The left ventricular cavity size and wall thickness are normal. Left ventricular systolic function is normal. There are no segmental left ventricular wall motion abnormalities noted. The estimated ejection fraction is 64% (Normal 50-75%). The left ventricular ejection fraction was measured by the bi-plane method of discs. Left ventricular diastolic function appears within normal limits for age. No significant valvular disease. Normal pulmonary pressure. The RV systolic pressure was estimated from the peak TV regurgitant velocity. The estimated RV systolic pressure is 15 mmHg assuming a right atrial pressure of 3 mmHg. There is no evidence of pericardial effusion. No prior studies for comparison. Left Ventricle The left ventricular cavity size and wall thickness are normal. Left ventricular systolic function is normal. There are no segmental left ventricular wall motion abnormalities noted. The estimated ejection fraction is 64% (Normal 50-75%). The left ventricular ejection fraction was measured by the bi-plane method of discs. Left ventricular diastolic function appears within normal limits for age. Right Ventricle The right ventricular size is normal. The right ventricular systolic function is normal. Left Atrium The left atrium is normal in size. The pulmonary venous flow profiles are normal. Right Atrium The right atrium is normal in size. The IVC measures 19 mm (normal <=21 mm). The IVC demonstrates normal collapse with inspiration which is consistent with normal RA pressure. Mitral Valve The mitral valve appears normal. E/A ratio is 1.5. E/E' avg is 6.3. Lat E' velocity is 16.9cm/s. Med E' velocity is 9.68cm/s. There is no evidence of mitral stenosis. There is trace mitral regurgitation detected by spectral and color Doppler. Tricuspid Valve The tricuspid valve appears normal. There is no evidence of tricuspid stenosis. There is evidence of trace tricuspid regurgitation by color and spectral Doppler. Peak TR is 1.7m/s. Normal pulmonary pressure. The RV systolic pressure was estimated from the peak TV regurgitant velocity. The estimated RV systolic pressure is 15 mmHg assuming a right atrial pressure of 3 mmHg. Aortic Valve The aortic valve appears normal. The aortic valve is tricuspid. There is no evidence of valvular aortic stenosis. The peak aortic valve gradient is 7 mmHg. The mean aortic gradient is 4 mmHg. There is no evidence of aortic regurgitation by color and spectral Doppler. The visualized portions of the thoracic aorta appear normal. Pulmonic Valve The pulmonary valve appears normal. There is no evidence of pulmonic stenosis. There is evidence of trace pulmonary regurgitation by color and spectral Doppler. Pericardium There is no evidence of pericardial effusion. Interatrial Septum The interatrial septum appears normal. There is no evidence of an atrial septal defect. Interventricular Septum Interventricular septal motion appears normal. There is no evidence of a ventricular septal defect. General Findings The image quality was good (2). Technique(s) used in the evaluation: Color flow Doppler and Spectral Doppler. The predominant rhythm during the study was sinus. Comparison Findings No prior studies for comparison. us Chuck Strauss MD CV ECHO ORDERABLES Final Result documented in this encounter Visit Diagnoses Diagnosis Chest wall pain Painful respiration Chest wall pain Painful respiration documented in this encounter Care Teams Solidworks Mechanical Designer Relationship Specialty Start Date End Date Chuck Strauss MD [address] [place] [address] [email or web address] PCP - General Family Medicine 12/27/18 01/13/19 Apoorva Zarco NP [address] [place] [address] [email or web address] PCP - General 01/14/19 04/22/21 Chuck Strauss MD [address] [place] [address] [email or web address] PCP - General Family Medicine 04/23/21 documented as of this encounter Additional Source Comments The information contained in this document represents components of the legal health record. It is not the complete legal health record.[facility]
--- OUTSIDE RECORDS SUMMARY | 2025-04-04 15:51 | XMS_ITS | Encounter Summary ---
Author Organization [facility] Address [address] [facility] [address] [place] [address] Phone Care Team Providers Care Human Resources Benefits Manager Name Role Phone Chuck Strauss MD Primary Care Provider [phone] Apoorva Zarco NP Primary Care Provider [phone] Chuck Strauss MD Primary Care Provider [phone] Encounter Details Date Type Department Care Team (Latest Contact Info) Description 01/02/2019 Transcribe Orders [facility] [address] [address] Mignon Prater CNP 10 [place] [address] Gastroesophageal reflux disease, esophagitis presence not specified (Primary Dx); Bloating; Abdominal pain, epigastric; Change in bowel habits; Loose stools Social History Tobacco Use Types Packs/Day Years [...] Description 05/19/2025 8:30 AM EST Office Visit [facility] Gastroenterology Clinic [address] [place] [address] Unknown, Unknown, Tracy Carpenter, PAAldoC [address] [address] [email or web address] documented as of this encounter Results * Pancreatic Elastase, Stool (01/04/2019 9:17 AM EDT) Pathologist [facility] [place] ST PANCREA ELASTASE >500 mcg/g [facility] Comment: (NOTE) Adult and Pediatric Reference Ranges for Pancreatic Elastase-1: Normal: >200 mcg/g Moderate Pancreatic Insufficiency: 100-200 mcg/g Severe Pancreatic Insufficiency: <100 mcg/g Elastase-1 (E-1) assay results are expressed in mcg/g, which represent mcg E1/g feces. It is not necessary to interrupt enzyme substitution therapy. Test Performed by: [employer] [address] [place] [address] Stool (Stool) 01/04/2019 9:1 7 AM EDT 01/04/2019 12:51 PM EDT Mignon Prater [facility] BODY FLUIDS AND STOOLS ORD ERABLES Final Result [place] [facility] * Stool fat/fiber exam (01/04/2019 9:17 AM EDT) [facility] FATTY ACID NORMAL NORMAL [facility] Neutral Fat, stool NORMAL NORMAL [facility] Stool (Stool) 01/04/2019 9:1 7 AM EDT 01/04/2019 12:51 PM EDT [facility] BODY FLUIDS AND STOOLS ORD ERABLES Final Result [facility] [address] [place] [address] * Ova and parasites, stool (01/04/2019 9:17 AM EDT) Pathologist [facility] Special Requests None 01/04/2019 12:49 PM EDT [facility] DIRECT EXAM Observed IODAMOEBA BUTSCHLII 01/09/2019 3:48 PM EDT [facility] DIRECT EXAM Observed ENDOLIMAX AIMEE 01/09/2019 3:48 PM EDT [facility] Stool (Stool) 01/04/2019 9:1 7 AM EDT 01/04/2019 12:52 PM EDT Mignon Prater [facility] MICROBIOLOGY - GENERAL ORD ERABLES Final Result Performing Organization Address City/[facility]/ZIP Co de Phone Number [facility] [address] [place] [address] * H. pylori antigen, stool (01/04/2019 9:17 AM EDT) [facility] Negative Negative [facility] DPT OF LAB MED AND PAT+ Stool (Stool) 01/04/2019 9:1 7 AM EDT 01/04/2019 12:51 PM EDT Mignonadria Prater [facility] BODY FLUIDS AND STOOLS ORD ERABLES Final Result Performing Organization Address [facility] Co de Phone Number [facility] DPT OF LAB MED AND PAT+ [address] [place] [address] * (ABNORMAL) Giardia antigen screen (01/04/2019 9:17 AM EDT) GIARDIA ANTIGEN Positive(A ) Negative [facility] DPT OF LAB MED AND PAT+ Comment: (NOTE) Stool containing large amounts of leukocytes or red blood cells may give falsely positive results. Stool (Stool) 01/04/2019 9:1 7 AM EDT 01/04/2019 12:51 PM EDT Mignon Prater [facility] MICROBIOLOGY - GENERAL ORD ERABLES Final Result Performing Organization Address City/[facility]/ZIP Co de Phone Number [facility] DPT OF LAB MED AND PAT+ [address] [place] [address] * Fecal leukocyte examination (01/04/2019 9:17 AM EDT) Special Requests None 01/04/2019 12:49 PM EDT [facility] GRAM STAIN NO WBC'S 01/05/2019 1:24 PM EDT [facility] Stool (Stool) 01/04/2019 9:1 7 AM EDT 01/04/2019 12:52 PM EDT Mignonadria Palacio Moi [facility] MICROBIOLOGY - GENERAL ORD ERABLES Final Result Performing Organization Address City/[facility]/ZIP Co de Phone Number [address] [address] * (ABNORMAL) Calprotectin, stool (01/04/2019 9:17 AM EDT) Calprotectin, stool 93.5(H) <50.0 mcg/g [facility] Calprotectin Interp Borderli ne(A) Negative [facility] Comment: 50-120 mcg/g is borderline >120 mcg/g is positive Stool (Stool) 01/04/2019 9:1 7 AM EDT 01/04/2019 12:52 PM EDT Mignon Prater [facility] BODY FLUIDS AND STOOLS ORD ERABLES Final Result Performing Organization Address [facility]/ZIP Co de Phone Number [address] [address] * Stool culture (01/04/2019 9:17 AM EDT) Special Requests None 01/04/2019 12:49 PM EDT [facility] Stool Culture NO SALMONELLA, SHIGELLA OR CAMPYLOBACTER ISOLATED 01/05/2019 8:14 AM EDT [facility] Stool (Stool) 01/04/2019 9:1 7 AM EDT 01/04/2019 12:52 PM EDT Mignon Pia Moi [facility] MICROBIOLOGY - GENERAL ORD ERABLES Final Result Performing Organization Address City/[facility]/ZIP Co de Phone Number [address] [address] * C. DIFFICILE PCR (01/04/2019 9:17 AM EDT) C.DIFFICILE PCR Negative Negative [facility] C.DIFFICILE STRAIN PRESUMPTIVE NEGATIVE PRESUMPTIVE NEGATIVE [facility] Comment:Detection of 027/NAP 1/BI strains of C.difficile is presumptive and is solely for epidemiological purposes and is not intended to guide or monitor treatment of infections. Stool (Stool) 01/04/2019 9:1 7 AM EDT 01/04/2019 12:52 PM EDT Mignonadria Palacio Moi [facility] MICROBIOLOGY - GENERAL ORD ERABLES Final Result Performing Organization Address [facility] Co de Phone Number [address] [address] * Ova and parasites, stool (01/03/2019 8:30 AM EDT) Special Requests None 01/04/2019 12:43 PM EDT [facility] DIRECT EXAM Observed ENDOLIMAX AIMEE 01/09/2019 4:09 PM EDT [facility] Stool (Stool) 01/03/2019 8:3 0 AM EDT 01/04/2019 12:47 PM EDT Comment:STOOL Mignon Pia Moi [facility] MICROBIOLOGY - GENERAL ORD ERABLES Final Result Performing Organization Address [facility] Co de Phone Number [address] [address] * Ova and parasites, stool (01/02/2019 10:12 PM EDT) Special Requests None 01/04/2019 12:43 PM EDT [facility] DIRECT EXAM Observed GIARDIA LAMBLIA 01/09/2019 3:27 PM EDT [facility] DIRECT EXAM Observed ENDOLIMAX AIMEE 01/09/2019 3:27 PM EDT [facility] Stool (Stool) 01/02/2019 10: 12 PM EDT 01/04/2019 12:46 PM EDT Comment:STOOL Mignon Pia Moi [facility] MICROBIOLOGY - GENERAL ORD ERABLES Final Result Performing Organization Address [facility] Co de Phone Number [address] [address] * TSH (01/02/2019 9:56 AM EDT) Pathologist [facility] TSH 1.82 0.27 - 4.20 uIU/mL [facility] Blood 01/02/2019 9:56 AM EDT 01/02/2019 10:23 AM EDT Mignon Prater [facility] LAB BLOOD ORDERABLES Final Result [address] [address] * C-Reactive Protein (01/02/2019 9:56 AM EDT) [facility] C REACTIVE PROTEIN 2.4 0.0 - 4.0 mg/L [facility] Blood 01/02/2019 9:56 AM EDT 01/02/2019 10:23 AM EDT Mignon Prater [facility] LAB BLOOD ORDERABLES Final Result [address] [address] * Comprehensive metabolic panel (01/02/2019 9:56 AM EDT) Pathologist [facility] SODIUM 141 133 - 146 mmol/L [facility] POTASSIUM 4.3 3.3 - 5.1 mmol/L [facility] CHLORIDE 106 96 - 108 mmol/L [facility] CO2 21 21 - 35 mmol/L [facility] BUN 13 6 - 19 mg/dL [facility] CREATININE 1.10 0.5 - 1.5 mg/dL [facility] GLUCOSE 98 70 - 99 mg/dL [facility] ALBUMIN 4.0 3.9 - 4.8 g/dL [facility] TOTAL PROTEIN 7.5 6.5 - 8.0 g/dL [facility] CALCIUM 9.2 8.4 - 10.3 mg/dL [facility] ALKALINE PHOSPHATASE 58 39 - 117 U/L [facility] TOTAL BILIRUBIN 0.2 0.0 - 1.2 mg/dL [facility] AST 14 0 - 37 U/L [facility] ALT 16 0 - 40 U/L [facility] GLOBULIN 3.5 1 - 4.8 g/dL [facility] EGFR 92 >59 mL/min/1.7 3m2 [facility] Comment:If patient is black, multiply result by 1.159. Estimated glomerular filtration rate calculated using the CKD-EPI equation. ANION GAP 18 10 - 20 mmol/L [facility] Blood 01/02/2019 9:56 AM EDT 01/02/2019 10:23 AM EDT us Mignon Prater [facility] LAB BLOOD ORDERABLES Final Result [facility] [address] [place] [address] * CBC (01/02/2019 9:56 AM EDT) WBC 5.61 3.40 - 11.20 K/uL [facility] RBC 4.58 4.50 - 5.50 M/uL [facility] HGB 14.1 13.0 - 17.0 g/dL [facility] HCT 41.7 40.0 - 51.0 % [facility] PLT 299 130 - 400 K/uL [facility] MCV 91.0 79.0 - 98.0 fL [facility] MCH 30.8 27.0 - 34.8 pg [facility] MCHC 33.8 31.5 - 36.0 g/dL [facility] RDW 12.1 10.8 - 14.6 % [facility] MPV 10.2 9.4 - 12.4 fl [facility] NRBC 0.00 0.00 /100 WBCs [facility] ABSOLUTE NRBC 0.00 0.00 K/uL [facility] Blood 01/02/2019 9:56 AM EDT 01/02/2019 10:23 AM EDT us Mignon Prater [facility] LAB BLOOD ORDERABLES Final Result [address] [address] * Immunoglobulin A (01/02/2019 9:56 AM EDT) IgA 200 70 - 400 mg/dL [facility] Blood 01/02/2019 9:56 AM EDT 01/02/2019 10:23 AM EDT Mignon Palacio Moi [facility] LAB BLOOD ORDERABLES Final Result Performing Organization Address City/[facility] Co de Phone Number [address] [address] * Tissue transglutaminase IgA (01/02/2019 9:56 AM EDT) TTG IGA ANTIBODY <1.2 <4.0 (Negative) U/mL [facility] Blood 01/02/2019 9:56 AM EDT 01/02/2019 10:23 AM EDT Mignon Prater [facility] LAB BLOOD ORDERABLES Final Result Performing Organization Address [facility] Co de Phone Number [facility] [address] [place] [address] documented in this encounter Visit Diagnoses Diagnosis Gastroesophageal reflux disease, esophagitis presence not specified- Primary Bloating Flatulence, eructation, and gas pain Abdominal pain, epigastric Change in bowel habits Other symptoms involving digestive system Loose stools Abnormal feces documented in this encounter Care Teams Human Resources Benefits Manager Relationship Specialty Start Date End Date Chuck Strauss MD [address] [facility] [address] [place] [id number] [email or web address] PCP - General Family Medicine 12/27/18 01/13/19 Apoorva Zarco NP [address] [place] [address] [email or web address] PCP - General 01/14/19 04/22/21 Chuck Strauss MD [address] [facility] [address] [place] [address] [email or web address] PCP - General Family Medicine 04/23/21 documented as of this encounter Additional Source Comments The information contained in this document represents components of the legal health record. It is not the complete legal health record.[facility]
--- OUTSIDE RECORDS SUMMARY | 2025-04-04 15:51 | XMS_ITS | Patient Health Record ---
Author Organization [facility] [address] Address [address] [place] [address] Care Team Providers Care Logging Specialist Name Role Phone COURTNEY SIMS Unavailable [phone] Allergies Allergen (clinical drug ingredient) Drug/Non Drug Allergy documented on EMR Reaction Allergy Type Onset Date Status amoxicillin Amoxicillin rash Drug Allergy Act crissy Reason For Referral No Information Medications Medication SIG (Take, Route, Fr equency, Duration) Notes Start Date End Date Status Phentermine HCl 30 MG 1 capsule Orally O nce a day; Duration: 30 days Active Wegovy 1mg 1mg 1mg subcutaneous wee kly; Duration: 30 days Active Social History Tobacco Use: Social History Observation Description Date Details (start date - stop date) Never Smoker NA - NA Tobacco Use/Smoking Question Answer Notes Are you a nonsmoker Problems Problem Type SNOMED Code ICD Code Onset Dates Problem Status W/U Status Risk Notes Problem Obesity due to excess calories (820825988) Other obesity due to excess calories (E66.09) Active confirmed Problem Obesity (729703345) Other obesity (E66.8) Active confirmed Problem Eating disorder (66007665) Eating disorder, unspecified (F50.9) Active confirmed Problem Morbid obesity (197553107) Morbid obesity (E66.01) Active confirmed Problem Body mass index 40+ - morbidly obese (338477636) BMI 40.0-44.9, adult (Z68.41) Active confirmed Problem Body mass index 35.00 to 39.99 (093414689815 105) Body mass index [BMI] 38.0-38.9, adult (Z68.38) Active confirmed Problem Obesity (557917174) Obesity (BMI 35.0-39.9 without comorbidity) (E66.9) Active confirmed Problem Body mass index 35.00 to 39.99 (720150501418 105) Adult BMI 37.0-37.9 kg/sq m (Z68.37) Active confirmed Problem Body mass index 40+ - severely obese (255420608) Body mass index [BMI] 40.0-44.9, adult (Z68.41) Active confirmed Problem Manic bipolar I disorder (99340041) Bipolar affective disorder, current episode manic, current episode severity unspecified (F31.10) Active confirmed Plan Of Treatment No Information Insurance Providers Payer Name Payer Address Payer Phone Subscriber Number Group Number Insured Name Patient Relationship to Insured Coverage Start Date Coverage End Date [facility] [address] [place] [address] [id number] Bon Knapp Self - patient is the insured 1 Medical (General) History Medical History History ICD Code asthma Surgical History Surgery Date(Month/Year) wisdom teeth extraction 2010
--- OUTSIDE RECORDS SUMMARY | 2025-04-04 15:51 | XMS_ITS | Clinical Summary ---
Author Organization [facility] Address [address] [address] Phone Care Team Providers Care Embedded Linux Engineer Name Role Phone Chuck Strauss MD Primary Care Provider [phone] Allergies Active Allergy Reactions Criticality Noted Date Comments Amoxicillin Rash Low 07/13/2021 Venlafaxine Insomnia Low 07/13/2021 Trazodone Dizziness 07/13/2021 Medications divalproex (DEPAKOTE ER) 500 MG ER 24 hr tablet 1 Active DESCOVY 200-25 mg tablet 1 Active ondansetron (ZOFRAN-ODT) 4 MG disintegrating tablet 1 Active phentermine (ADIPEX-P) 30 MG capsule 2 Active loratadine (CLARITIN REDITABS) 10 mg dissolvable tablet Take 10 mg by mouth daily. Active fluticasone propionate (FLONASE) 50 mcg/actuation nasal spray 1 spray by Nasal route daily. Active predniSONE (DELTASONE) 20 MG tablet TAKE 2 TABLETS BY MOUTH EVERY DAY FOR 4 DAYS THEN REDUCE TO 1 TAB EVERY DAY FOR 4 DAYS 3 Active Active Problems Problem Noted Date Diagnosed Date Allergic rhinitis 07/13/2021 Assessment & Plan (07/13/2021 8:47 AM EST): Perennial allergic rhinitis, likely from environmental exposure such as dust. Currently feels well controlled on oral antihistamines and nasal steroids. With worsening symptoms, can first try increasing nasal steroids to twice daily. If ineffective, could then consider either addition of a nasal antihistamine versus trial of montelukast. Asthma Assessment & Plan (07/13/2021 8:46 AM EST): Mild intermittent asthma, typically allergic starting in mid fall. Likely triggers include weed pollen and mold. Ongoing allergies also to cats and dust though currently tolerating cat exposure without currently active asthma symptoms. Given normal PFTs and lack of symptoms, no maintenance therapy indicated. Discussed options of starting maintenance therapy seasonally beginning in early February continuing through May. Options include inhaled corticosteroid versus trial of montelukast. Given recent likely benefit and good tolerance, will plan on resuming inhaled corticosteroids in early fall. Patient will call with any question Family History Medical History Relation Comments COPD Mother Relation Status Comments Mother Social History Tobacco Use Types Packs/Day Years Used Date Smoking Tobacco: Never Smokeless Tobacco: Never Alcohol Use Standard Drinks/Week Comments Yes 0 (1 standard drink = 0.6 oz pur e alcohol) Socially Education Answer Date Recorded Are you interested in more education? Not on ayleen e 10/14/2022 Are you concerned about learning? Not on file 10/14/2022 No 10/14/2022 No 10/14/2022 Digital Access Answer Date Recorded No 11/12/2022 No 11/12/2022 No 11/12/2022 Reliable internet access at home? Not on file 11/12/2022 Device with a working camera? Not on file Sex and Gender Information Value Date Recorded Sex Assigned at Male 07/31/2021 6:49 PM EST Legal Sex Male 11:45 AM EDT Gender Identity Male 07/31/2021 6:49 PM EST Sexual Orientation Not on file Last Filed Vital Signs Vital Sign Reading Time Taken Comments Blood Pressure 139/99 07/31/2021 6:48 PM EST Pulse 91 07/31/2021 6:48 PM EST Temperature 37 C (98.6 F) 07/31/2021 6:48 PM EST Respiratory Rate 18 07/31/2021 6:48 PM EST Oxygen Saturation 97% 07/31/2021 6:48 PM EST Inhaled Oxygen Concentration - - Weight 112.5 kg (248 lb) 07/13/2021 8:03 AM EST Height 175.3 cm (5' 9 ) 07/13/2021 8:03 AM EST Body Mass Index 36.62 07/13/2021 8:03 AM EST Plan of Treatment Upcoming Encounters Date Type Department Care Team ([facility] st Contact Info) Description 05/19/2025 8:30 AM EST Office Visit [facility] G[facility]ology [facility] 10 [place] [address] Unknown, Unknown, Tracy Carpenter PA-C 10 [facility] 2 [place] [address] Health Maintenance Due Date Last Done Comments VALPROIC ACID (DEPAKENE) LEVEL 1992 DEPRESSION SCREENING 2004 HEPATITIS C SCREENING 2010 HIV ONE-TIME SCREENING (18-65 YEARS) 2010 PNEUMOCOCCAL VACCINES (0-49 years) (1 of 2 - PCV) 2011 INFLUENZA VACCINE (#1) 2025 , 04/10/2020, 03/21/2019, Additional history exists COVID-19 VACCINE ( - 2024- season) 2025 04/24/2021, 07/08/2020, 06/10/2020 Adult Td,Tdap Booster 01/31/2027 01/31/2017 , 10/21/2016, 05/23/2002 HIB VACCINES Completed 08/17/1993, 06/1992, 1992, Additional history exists MENINGOCOCCAL VACCINES (ACWY) Completed 05/21/2009 HEPATITIS A VACCINES Completed 11/12/2011, 05/11/20 10 SMOKING STATUS SCREENING (Once After 26 Yrs) Completed 07/13/2021 MENINGOCOCCAL VACCINES (B) Aged Out N o longer eligible based on patient's age to complete this topic Medical Devices Not on file Insurance [facility] HMO O O O O O O HMO Care Teams Embedded Linux Engineer Relationship Specialty Start Date End Date Chuck Strauss MD [address] [place] [address] [place] [phone] [email or web address] PCP - General Family Medicine 04/23/21 Additional Source Comments The information contained in this document represents components of the legal health record. It is not the complete legal health record.[facility]
--- OUTSIDE RECORDS SUMMARY | 2025-04-04 15:51 | XMS_ITS | Clinical Summary ---
Author Organization [facility] Address [address] [place] [phone] Phone Care Team Providers Care Machine Hose Cutter Name Role Phone Gonzalez Sparks MD Primary Care Provider [phone] Allergies Active Allergy Reactions Criticality Noted Date [...] Health Maintenance Due Date Last Done Comments Cholesterol Screening (Lipid Panel) 05/17/2022 HIV Screening 05/17/2022 Hepatitis C Screening 05/17/2022 Social Influencers of Health Screening 05/17/2022 Depression Screening 06/19/2024 COVID-19 Vaccine ( season) 2025 05/13/2023, 03/26/2022, 04/24/2021, Additional history exists Influenza Vaccine (#1) 2025 , 05/13/2023, 03/26/2022, Additional history exists DTaP,Tdap,and Td Vaccines (9 - Td or Tdap) 01/31/2027 01/31/2017, 10/21/2016, 05/23/2002, Additional history exists RSV Immunization Adult Patients (1 - 1-dose 75+ series) 2067 HIB Vaccines Completed 08/17/1993, 06/1992, 1992, Additional history exists MMR Vaccines Completed 08/17/1993, 06/20, 1993 IPV Vaccines Completed 02/06/1997, 03/20, 1992, Additional history exists Meningococcal ACWY Vaccine Completed 05/21/2009 Hepatitis A Vaccines Completed 11/12/2011, 05/11/20 10 Hepatitis B Vaccines Completed 11/17/2017, 12/15/2016, 10/21/2016, Additional history exists HPV Vaccines Completed 12/19/2018, 11/2018, 06/20/2018, Additional history exists Pneumococcal Vaccine: Pediatrics (0 to 5 Years) and At-Risk Patients (6 to 49 Years) Completed 05/13/2023 Meningococcal B Vaccine Aged Out No l onger eligible based on patient's age to complete this topic RSV Immunization Patients Under 20 months Aged Out No longer eligible based on patient's age to complete this topic Varicella Vaccines Aged Out No longer eligible based on patient's age to complete this topic Insurance Care Teams Machine Hose Cutter Relationship Specialty Start Date End Date Gonzalez Sparks MD [facility] [place] [address] [facility] - General 04/19/23
--- OUTSIDE RECORDS SUMMARY | 2025-04-04 15:51 | XMS_ITS | Encounter Summary ---
Author Organization [facility] Address [address] [facility] [address] [place] [address] Phone Care Team Providers Care Creative Recruiter Name Role Phone Chuck Strauss MD Primary Care Provider [phone] Reason for Visit * Reason Onset Date Comments Cough 02/08/2023 Wheezing 02/08/2023 Medication Refill 02/08/2023 Encounter Details Date Type Department Care Team ([facility] st Contact Info) Description 02/08/2023 Telephone CD Pulmonary, Allergy and Critical Care Medicine 10 [place] [address] Gonzalez Jane MD [address] [place] [address] Cough; Wheezing; Medication Refill Social History Tobacco Use Types Packs/Day Years [...] Upcoming Encounters Date Type Department Care Team ([facility] st Contact Info) Description 05/19/2025 8:30 AM EST Office Visit [facility] Gastroenterology Clinic 10 [place] [address] Unknown, Unknown, Tracy Carpenter PA-C [address] [address] [email or web address] documented as of this encounter Visit Diagnoses Not on filedocumented in this encounter Care Teams Creative Recruiter Relationship Specialty Start Date End Date Chuck Strauss MD [address] [place] [address] [address] [place] [address] [email or web address] PCP - General Family Medicine 04/23/21 documented as of this encounter Additional Source Comments The information contained in this document represents components of the legal health record. It is not the complete legal health record.[facility]
--- OUTSIDE RECORDS SUMMARY | 2025-04-04 15:51 | XMS_ITS | Encounter Summary ---
Author Organization [facility] Address [address] [employer] [facility] [address] [place] [address] Phone Care Team Providers Care Poker Machine Attendant Name Role Phone Chuck Strauss MD Primary Care Provider [phone] Reason for Referral * Consultation (Elective) - Closed Specialty Diagnoses / Procedures Referred By Contac t Referred To Contact Pulmonary Disease Chuck Strauss MD Phone: tel: fax: [email or web address] [address] [place] [address] Phone: tel: Referral ID Status Reason Start Date Expiration Date Visits Re quested Visits Authorized [id number] Closed 04/26/2021 04/26/2022 1 1 Encounter Details Date Type Department Care Team (Late st Contact Info) Description 04/26/2021 Transcribe Orders [facility] Pulmonary, Allergy and Critical Care Medicine 10 [facility] [place] [address] [place] [address] Chuck Strauss MD 230 [facility] [address] [place] [address] [email or web address] Social History Tobacco Use Types Packs/Day Years [...] Description 05/19/2025 8:30 AM EST Office Visit [facility] Gastroenterology Clinic 10 [place] [address] Unknown, Unknown, Tracy Carpenter PA-C [address] [address] [email or web address] Scheduled Referrals Name Type Priority Associated Diagnoses Order Schedule Ambulatory referral to [facility] Pulmonology Outpatient Referral Routine Ordered: 04/26/2021 documented as of this encounter Visit Diagnoses Not on filedocumented in this encounter Care Teams Poker Machine Attendant Relationship Specialty Start Date End Date Chuck Strauss MD 230 [facility] [address] [place] [phone] [email or web address] PCP - General Family Medicine 04/23/21 documented as of this encounter Additional Source Comments The information contained in this document represents components of the legal health record. It is not the complete legal health record.[facility]
--- OUTSIDE RECORDS SUMMARY | 2025-04-04 15:51 | XMS_ITS | Encounter Summary ---
Author Organization [facility] Address [address] [facility] [address] [place] [address] Phone Care Team Providers Care Storekeeper Helper Name Role Phone Chuck Strauss MD Primary Care Provider [phone] Encounter Details Date Type Department Care Team (Late st Contact Info) Description 04/27/2021 Transcribe Orders [facility] [address] [place] [address] Chuck Strauss MD 230 [facility]. [address] [place] [phone] [email or web address] Social History Tobacco Use Types Packs/Day Years Used Date Smoking Tobacco: Never Assessed Sex and Gender Information Value Date Recorded Sex Assigned at Male 07/31/2021 6:49 PM EST Legal Sex Male 11:45 AM EDT Gender Identity Male 07/31/2021 6:49 PM EST Sexual Orientation Not on file documented as of this encounter Plan of Treatment Upcoming Encounters Date Type Department Care Team (Late Contact Info) Description 05/19/2025 8:30 AM EST Office Visit [facility] Gastroenterology Clinic 10 [place] [address] Unknown, Unknown, Tracy Carpenter PA-C [address] [phone] documented as of this encounter Visit Diagnoses Not on filedocumented in this encounter Care Teams Storekeeper Helper Relationship Specialty Start Date End Date Chuck Strauss MD 230 [facility] [address] [place] [phone] [email or web address] PCP - General Family Medicine 04/23/21 documented as of this encounter Additional Source Comments The information contained in this document represents components of the legal health record. It is not the complete legal health record.[facility]
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
--- OUTSIDE RECORDS SUMMARY | 2025-04-04 15:52 | XMS_ITS | Clinical Summary ---
Author Organization [facility] Address [address] [place] [address] Care Team Providers Care Mold Filler Name Role Phone Pcp, No Primary Care Provider Unavailabl e Allergies No known active allergies Medications lamoTRIgine (LaMICtal) 100 MG tablet Take 1 tablet (100 mg total) by mouth daily. Active QUEtiapine (SEROquel) 50 MG tablet Take 1 tablet (50 mg total) by mouth nightly. Active [place] 3 1000 MG Cap capsule Take 2,150 [...] drink = 0.6 oz pur e alcohol) [facility] [place] of Occupat ional Health - Occupational Stress [...] Pap Smear (Ages 21-65) 2013 Influenza Vaccine 01/17/2025 COVID-19 Vaccine ( - 2023-2 5 season) 2025 HPV Vaccines (No Doses Required) Completed Pneumococcal Vaccine: Pediat agustin (0-5 Years) and At-Risk Patients (6 to 49 Years) Aged Out No longer eligible b ased on patient's age to complete this topic Insurance [facility] Care Teams Mold Filler Relationship Specialty Start Date End Date Pcp, No [address] [place] [address] PCP - General 11/23/22
--- OUTSIDE RECORDS SUMMARY | 2025-04-04 15:52 | XMS_ITS | Encounter Summary ---
Author Organization [facility] Address [address] [employer] [address] [place] [address] Phone Care Team Providers Care Systems Testing Laboratory Technician Name Role Phone Chuck Strauss MD Primary Care Provider [phone] Encounter Details Date Type Department Care Team (Late st Contact Info) Description 07/31/2021 Procedure Pass [facility], Ct Scan - [address] [address] Social History Tobacco Use Types Packs/Day Years Used Date Smoking Tobacco: Never Smokeless Tobacco: Never Alcohol Use Standard Drinks/Week Comments Yes 0 (1 standard drink = 0.6 oz pur e alcohol) Socially Sex and Gender Information Value Date Recorded Sex Assigned at Male 07/31/2021 6:49 PM EST Legal Sex Male 11:45 AM EDT Gender Identity Male 07/31/2021 6:49 PM EST Sexual Orientation Not on file documented as of this encounter Functional Status * Calculated C-SSRS Risk Score (Lifetime/Recent) Answer Date of Assessment Author No Risk Indicated 07/31/2021 6:49 PM EST Zeenat Estrada CNP * [place] Suicide Severity Rating Scale (Screener/Recent Self-Report) Question Answer Date of Assessment Author 1. Wish to be (Past 1 Month) No 07/31/2021 6:49 PM EST Zeenat Estrada [employer] 2. Non-Specific Active Suicidal Thoughts (Past 1 Month) No 07/31/2021 6:49 PM EST NatalieDeangeloileen Kushal joseph [employer] 6. Suicidal Behavior (Lifetime) No 07/31/2021 6:49 PM EST Zeenat Estrada, ANDREA documented as of this encounter Plan of Treatment Upcoming Encounters Date Type Department Care Team (Late st Contact Info) Description 05/19/2025 8:30 AM EST Office Visit [facility] Gastroenterology Clinic 10 [place] [address] Unknown, Unknown, Tracy Carpenter PA-C [address] [address] [email or web address] documented as of this encounter Visit Diagnoses Not on filedocumented in this encounter Care Teams Systems Testing Laboratory Technician Relationship Specialty Start Date End Date Chuck Strauss MD 230 [facility] [address] [place] [phone] [email or web address] PCP - General Family Medicine 04/23/21 documented as of this encounter Additional Source Comments The information contained in this document represents components of the legal health record. It is not the complete legal health record.[facility]
== END 2025-04-04 13:33 | disposition home or self-care (01) ==
LOC: HO.HPSW 13:12
PROVIDERS: PCP Family Medicine; Visit Provider Nurse Practitioner Family
DX: J45.909 Unspecified asthma, uncomplicated (principal); J30.9 Allergic rhinitis, unspecified
CPT/HCPCS: 99213